=== PATIENT | female | born 1955 | race Caucasian/White ===

== ENCOUNTER 2018-09-13 09:25 | Inpatient (IN) | payer MEDICARE, OTHER ==
[~2018-09-13] VITALS: Ht 172.7 cm; Wt 79.7 kg
[2018-09-13] VITALS (14 sets, daily range): BP systolic 78–124; BP diastolic 50–64
[~2018-09-13 09:25] MED LIST: NORepinephrine bitartrate 8 MG in NS 250 ML BAG (32 mcg/ml) IV ONE; epiNEPHrine 0.1mg/ml 10ml syringe ONE; etomidate 2mg/ml inj. ONE; rocuronium 10mg/ml inj IV ONE
[2018-09-13] MEDS ORDERED: insulin regular, human 10 units/0.1 ml syringe IV ONE ×2 (09:35→12:35)
[2018-09-13] MEDS ORDERED: insulin regular, human 100 UNIT in normal saline 100ml IV soln 100 ML IV PRN ×2 (09:35)
[2018-09-13] MEDS ORDERED: normal saline 1000ML IV soln IV ONE (09:35)
[2018-09-13 10:04] LABS: BASOPHILS # (AUTO) 0.1 X10'3 (0-0.2); BASOPHILS % (AUTO) 0.3 % (0-1); EOSINOPHILS % (AUTO) 0 % (0-6); HEMATOCRIT 43.9 % (35.0-45.0); HEMOGLOBIN 13.9 g/dl (12.0-16.0); LYMPHOCYTES # (AUTO) 4.9 X10'3 (1.1-4.8); MEAN CORPUSCULAR HEMOGLOBIN 30.1 PG (27.0-31.0); MEAN CORPUSCULAR HGB CONC 31.6 % (33.0-36.5); MEAN CORPUSCULAR VOLUME 95.3 FL (78-98); MEAN PLATELET VOLUME 7.8 FL (7.4-10.4); MONOCYTES # (AUTO) 3.5 X10'3 (0-0.9); MONOCYTES % (AUTO) 8.6 % (2-12); NEUTROPHILS # (AUTO) 32.5 X10'3 (1.8-7.7); NEUTROPHILS % (AUTO) 79.1 % (42-75); PLATELET COUNT 366 X10'3 (140-440); RED BLOOD COUNT 4.61 X10'6 (4.20-5.60)
[2018-09-13 10:06] LABS: WHITE BLOOD COUNT 41.1 X10'3 (4.5-11.0)
--- NOTE | 2018-09-13 10:15 | NUR ---
maura mijares started with 2 pumps.
[2018-09-13 10:21] LABS: ABG BASE EXCESS -33.2 mmol/L (-2.0-3.0); ABG OXYGEN SATURATION 99.3 % (95-98); ABG PCO2 (T) 11.8 mmHg (32.0-45.0); ABG PH (T) 6.799 (7.350-7.450); ABG PO2 (T) 351.3 mmHg (83-108); ALLEN'S TEST Positive; FCOHb 0.6 % (0.5-1.5); FLOW 15 L/min; FMetHb 0.2 % (0.3-1.12); FO2Hb 98.5 % (94-100); PATIENT TEMPERATURE 30.3; TOTAL HEMOGLOBIN 13.9 G/dl (12.0-16.0)
[2018-09-13 10:23] LABS: TOTAL CELLS COUNTED 100
[2018-09-13 10:24] LABS: URINE HCG NEGATIVE (NEG)
[2018-09-13 10:24] LABS: ALANINE AMINOTRANSFERASE 18 U/L (12-78); ALBUMIN 2.4 G/DL (3.4-5.0); ALBUMIN/GLOBULIN RATIO 0.5 (1.1-1.5); ALKALINE PHOSPHATASE 183 IU/L (46-116); ANION GAP 32 (8-16); ASPARTATE AMINO TRANSFERASE 25 U/L (10-37); BLOOD UREA NITROGEN 76 MG/DL (7-18); BUN/CREATININE RATIO 28.3 (6.6-38.0); BURR CELLS 1+; CALCIUM 10.4 MG/DL (8.5-10.1); CHLORIDE 87 MMOL/L (99-107); CREATININE 2.69 MG/DL (0.40-0.90); MAGNESIUM 3.2 MG/DL (1.5-2.4); PLATELET ESTIMATE NORMAL; POTASSIUM 5.9 MMOL/L (3.5-5.1); SODIUM 125 MMOL/L (135-145); TOTAL PROTEIN 7.3 G/DL (6.4-8.2); TOXIC VACUOLATION 1+; eGFR 18 ML/MIN
[2018-09-13 10:25] LABS: BILIRUBIN,TOTAL 0.6 MG/DL (0.1-1.0)
[2018-09-13] MEDS ORDERED: piperacillin/tazo 3.375gm/50ml 50 ML IV ONE (10:25)
[2018-09-13] MEDS ORDERED: vancomycin/NS 1 GM ADD-VANTAGE 250 ML IV ONE (10:25)
[2018-09-13 10:26] LABS: CLARITY,URINE CLEAR (Clear); COLOR,URINE YELLOW (Yellow); GLUCOSE, URINE >=1000 mg/dl (Neg); KETONES,URINE >=80 mg/dl (Neg); LEUKOCYTE ESTERASE ,URINE NEGATIVE (Neg); NITRITES, URINE NEGATIVE (Neg); OCCULT BLOOD,URINE MODERATE (Neg); PH,URINE 5.5 (4.8-8.0); PROTEIN,URINE 100 mg/dl (Neg); UROBILINOGEN,URINE 0.2 E.U/dL (0.2-1.0)
[2018-09-13 10:28] LABS: INR 1.2 INR; PARTIAL THROMBOPLASTIN TIME 57 SECONDS (22-32); TOTAL CARBON DIOXIDE 5.6 MMOL/L (24-32)
[2018-09-13 10:29] LABS: UA COLLECTION TYPE CLN CATCH MIDSTREAM
[2018-09-13 10:34] LABS: AMORPHOUS URATES 1+; BACTERIA,URINE NONE SEEN /HPF (Neg); MUCUS STRANDS NONE SEEN /LPF (Neg); RBC,URINE NONE SEEN /HPF (0-2); SQUAMOUS EPITHELIAL CELL,UR NONE SEEN /LPF (FEW); WBC,URINE NONE SEEN /HPF (0-4)
[2018-09-13] MEDS ORDERED: calcium chloride 100 MG/1 ML inj IV ONE (10:40)
[2018-09-13 10:41] LABS: GLUCOSE 1173 MG/DL (70-104)
--- NOTE | 2018-09-13 10:50 | NUR ---
PT TO CT WITH RN AND MONITOR.
--- NOTE | 2018-09-13 11:08 | NUR ---
back from ct
--- NOTE | 2018-09-13 11:19 | NUR ---
setting up for central line and intubation per dr villeda
--- NOTE | 2018-09-13 11:24 | NUR ---
1124 dr villeda at bedside with ultrasound to place central line. rt present for intubation 1142 central line complete hr 79 spo2 100 on 15 nrb rr 18, temp 86.9 1142 sylwia 100 and etomidate 20 preparing to intubatem rt at bedside, 1150 etomidate 20 admin , 1151 sylwia 100 admin levophed ordered to astart tiffanie 1152 indubated 24 at teeth, size 8 tube, positive color change, sounds heard bilat. 1153 levophed started at 8, hr 86, spo2 100% 15L bvm 92/57 temp 87.1 bladder
--- NOTE | 2018-09-13 12:13 | NUR ---
og tube placed with approx 400 ml black output.
[2018-09-13] MEDS ORDERED: rocuronium 10mg/ml inj IV ONE (12:15)
[2018-09-13] MEDS ORDERED: normal saline 1000ml 1,000 ML IV ONE (12:15)
[2018-09-13] MEDS ORDERED: etomidate 2mg/ml inj. IV ONE (12:15)
--- NOTE | 2018-09-13 12:25 | NUR ---
dr clarke at bedside with dr villeda
[2018-09-13] MEDS: NORepinephrine 8mg/ 250ml NS 250 ML IV SCH ×3 (12:27→23:50)
[2018-09-13] MEDS ORDERED: metoclopramide 5 mg/ml inj IV PRN (12:40)
[2018-09-13] MEDS ORDERED: Neutra Phos packet PO PRN (12:40)
[2018-09-13] MEDS ORDERED: magnesium 4gm in 100ml NS 100 ML IV PRN (12:40)
[2018-09-13] MEDS: K, MAG and/or Phos replacement - Verify level? MC SCH (12:40)
[2018-09-13] MEDS ORDERED: insulin regular, human inj. 100 UNITS in normal saline 100ml IV soln 100 ML IV SCH ×2 (12:40)
[2018-09-13] MEDS ORDERED: pantoprazole 40 MG vial IV SCH (12:40)
[2018-09-13] MEDS ORDERED: magnesium Cl slow-release 64mg tablet PO PRN (12:40)
[2018-09-13] MEDS ORDERED: dextrose 50%-water 50ml dispensing syringe IV PRN ×3 (12:40→12:45)
[2018-09-13] MEDS ORDERED: sodium phosphate inj. 30 MMOL in dextrose 5%-water 250 ML IV PRN (12:40)
[2018-09-13] MEDS ORDERED: potassium Cl 20 mEq SR tablet PO PRN ×4 (12:40→12:45)
[2018-09-13] MEDS ORDERED: morphine 2 MG/ML inj. syringe IV PRN (12:40)
[2018-09-13] MEDS ORDERED: insulin regular, DKA only 100 UNIT in normal saline 100ml IV soln 99 ML IV SCH ×2 (12:44)
[2018-09-13] MEDS ORDERED: potassium CL 20mEq in D5-1/2NS 1,000 ML IV PRN (12:44)
[2018-09-13] MEDS ORDERED: insulin Lispro (HumaLOG) vial - multi-dose SQ SCH (12:45)
[2018-09-13] MEDS ORDERED: potassium Cl 40MEQ/NS 500ml 500 ML IV PRN ×2 (12:45)
[2018-09-13] MEDS ORDERED: MESSAGE TO PHARMACY PO ONE (12:45)
[2018-09-13] MEDS ORDERED: insulin regular, human vial - multi-dose IV PRN (12:45)
[2018-09-13] MEDS ORDERED: dextrose ORAL solution 15 GM/59 ML bottle PO PRN ×2 (12:45)
[2018-09-13] MEDS ORDERED: glucagon, human recombinant 1mg kit SUBCUT PRN (12:45)
[2018-09-13] MEDS ORDERED: LIDOcaine 1.5% w/epinephrine 1:200,000 5ml ampul IJ ONE (12:55)
[2018-09-13] MEDS: insulin Lispro (HumaLOG) vial - multi-dose SQ SCH ×2 (13:00→18:00)
[2018-09-13] MEDS ORDERED: LIDOcaine 1% w/epiNEPHrine 1:200,000 30ml vial IJ ONE (13:25)
--- NOTE | 2018-09-13 13:30 | NUR ---
pt at bedside with box of home medications
[2018-09-13 14:11] LABS: ALBUMIN 2.2 G/DL (3.4-5.0); BLOOD UREA NITROGEN 69 MG/DL (7-18); BUN/CREATININE RATIO 27.1 (6.6-38.0); CALCIUM 10.1 MG/DL (8.5-10.1); CHLORIDE 96 MMOL/L (99-107); CREATININE 2.55 MG/DL (0.40-0.90); PHOSPHORUS 8.1 MG/DL (2.3-4.5); POTASSIUM 3.9 MMOL/L (3.5-5.1); SODIUM 131 MMOL/L (135-145); eGFR 19 ML/MIN
--- NOTE | 2018-09-13 14:15 | NUR ---
The patient, CARON VILLAREAL, 63 y/o, F admitted by HANNA HOLT MD, was given written information regarding hospital policies, unit procedures and contact persons. See Admission information.
[2018-09-13 14:17] LABS: HEMOGLOBIN A1C 12.5 % (4.5-6.2)
[2018-09-13 14:29] LABS: ANION GAP 30 (8-16)
[2018-09-13 14:31] LABS: GLUCOSE 885 MG/DL (70-104); TOTAL CARBON DIOXIDE < 5 MMOL/L (24-32)
--- NOTE | 2018-09-13 15:00 | NUR ---
warming blanket applied for temp of 32.0
[2018-09-13] MEDS: insulin regular, DKA only 100 UNIT in normal saline 100ml IV soln 99 ML IV SCH ×2 (15:52)
[2018-09-13] MEDS: normal saline 1000ml 1,000 ML IV SCH ×3 (15:54→23:35)
[2018-09-13] MEDS: metroNIDAZOLE-Flagyl 500mg/NS 100 ML IV SCH (15:59)
--- NOTE | 2018-09-13 16:00 | NUR ---
Dr George here to see patient give orders and talk to family. Orders received.
[2018-09-13 16:06] LABS: ALANINE AMINOTRANSFERASE 19 U/L (12-78); ALBUMIN 2.1 G/DL (3.4-5.0); ALBUMIN/GLOBULIN RATIO 0.4 (1.1-1.5); ALKALINE PHOSPHATASE 198 IU/L (46-116); ASPARTATE AMINO TRANSFERASE 35 U/L (10-37); BILIRUBIN,TOTAL 0.6 MG/DL (0.1-1.0); BLOOD UREA NITROGEN 70 MG/DL (7-18); BUN/CREATININE RATIO 27.3 (6.6-38.0); CALCIUM 9.5 MG/DL (8.5-10.1); CHLORIDE 98 MMOL/L (99-107); CREATININE 2.56 MG/DL (0.40-0.90); MAGNESIUM 2.3 MG/DL (1.5-2.4); PHOSPHORUS 7.5 MG/DL (2.3-4.5); POTASSIUM 3.8 MMOL/L (3.5-5.1); SODIUM 132 MMOL/L (135-145); TOTAL PROTEIN 6.8 G/DL (6.4-8.2); eGFR 19 ML/MIN
--- NOTE | 2018-09-13 16:30 | NUR ---
2L of NS given via warmed rapid infuser per Md orders
[2018-09-13 16:31] LABS: ANION GAP 29 (8-16)
[2018-09-13 16:32] LABS: GLUCOSE 828 MG/DL (70-104)
[2018-09-13 16:33] LABS: TOTAL CARBON DIOXIDE < 5 MMOL/L (24-32)
[2018-09-13] MEDS ORDERED: pantoprazole 40 MG vial IV ONE (17:05)
[2018-09-13] MEDS: hydrocortisone sod succ/PF 100mg/2ml inj. IV SCH ×2 (17:28→20:09)
[2018-09-13] MEDS ORDERED: levoTHYROXINE sod inj. 100mcg/5 ml vial IV ONE (17:40)
[2018-09-13 17:45] LABS: OXYGEN SATURATION (MIXED VEN) 89.4 % (60-80); PO2 MIXED VENOUS (TEMP COR) 46.7 mmHg (35-46)
[2018-09-13] MEDS: sodium chloride 0.45% 1,000 ML IV SCH ×2 (17:48→21:33)
[2018-09-13] MEDS: ampicillin inj 2 GM in normal saline 100ml IV soln 100 ML IV SCH ×2 (17:48→20:09)
[2018-09-13 17:51] LABS: BASOPHILS % (AUTO) 0.1 % (0-1); EOSINOPHILS % (AUTO) 0 % (0-6); HEMATOCRIT 39.9 % (35.0-45.0); LYMPHOCYTES # (AUTO) 4.7 X10'3 (1.1-4.8); LYMPHOCYTES % (AUTO) 13.5 % (21-51); MEAN CORPUSCULAR HEMOGLOBIN 29.9 PG (27.0-31.0); MEAN CORPUSCULAR HGB CONC 32.6 % (33.0-36.5); MEAN CORPUSCULAR VOLUME 91.8 FL (78-98); MEAN PLATELET VOLUME 7.1 FL (7.4-10.4); MONOCYTES # (AUTO) 0.8 X10'3 (0-0.9); MONOCYTES % (AUTO) 2.3 % (2-12); NEUTROPHILS # (AUTO) 29.6 X10'3 (1.8-7.7); NEUTROPHILS % (AUTO) 84.1 % (42-75); PLATELET COUNT 348 X10'3 (140-440); RED BLOOD COUNT 4.34 X10'6 (4.20-5.60); RED CELL DISTRIBUTION WIDTH 13.7 % (11.5-14.5)
[2018-09-13 17:53] LABS: WHITE BLOOD COUNT 35.2 X10'3 (4.5-11.0)
[2018-09-13 17:56] LABS: ABG BASE EXCESS -30.9 mmol/L (-2.0-3.0); ABG HCO3 4.2 mmol/L (22.0-26.0); ABG OXYGEN SATURATION 96.6 % (95-98); ABG PCO2 (T) 25.2 mmHg (32.0-45.0); ABG PH (T) 6.801 (7.350-7.450); ABG PO2 (T) 83.2 mmHg (83-108); FCOHb 0.6 % (0.5-1.5); FMetHb 0.3 % (0.3-1.12); FO2Hb 95.7 % (94-100); MINUTE VOLUME 9 L/min; PATIENT TEMPERATURE 32.8; PEEP 5 cm H2O; RESPIRATORY RATE 20 b/min; RESPIRATORY RATE (OBSERVED) 20 b/min; TIDAL VOLUME 400 mL; TOTAL HEMOGLOBIN 14.1 G/dl (12.0-16.0)
[2018-09-13 18:01] LABS: INR 1.3 INR; PARTIAL THROMBOPLASTIN TIME 44 SECONDS (22-32); PROTHROMBIN TIME 12.7 SECONDS (9.0-12.0)
[2018-09-13] MEDS ORDERED: sodium bicarbonate (8.4%) 1 mEq/ml syringe ONE ×2 (18:01→18:03)
[2018-09-13] MEDS ORDERED: sodium bicarbonate (8.4%) 1 mEq/ml syringe IV ONE ×2 (18:05→21:15)
[2018-09-13 18:10] LABS: PHOSPHORUS 6.3 MG/DL (2.3-4.5); POTASSIUM 3.5 MMOL/L (3.5-5.1)
--- NOTE | 2018-09-13 18:15 | NUR ---
Patient in room ICU 2041. I have received report from Ag Mtz RN and had the opportunity to ask questions and assume patient care.
--- NOTE | 2018-09-13 18:15 | NUR ---
Problems reprioritized. Patient report given, questions answered & plan of care reviewed with oncomign shift.
--- NOTE | 2018-09-13 18:30 | NUR ---
Patient at max dose of Levo. Spoke with Ale Santiago NP. New orders received. Will continue to monitor.
[2018-09-13] MEDS: vasopressin inj. 60 UNIT in normal saline 100ml IV soln 97 ML IV SCH (18:54)
--- NOTE | 2018-09-13 19:30 | NUR ---
Patients daughter and ex at bedside. Daughter states that she lives with boyfriend, not . Daughter also states that patient has a allergy to Sulfa drugs.
[2018-09-13 20:49] LABS: BASOPHILS # (AUTO) 0.1 X10'3 (0-0.2); BASOPHILS % (AUTO) 0.4 % (0-1); EOSINOPHILS % (AUTO) 0 % (0-6); HEMATOCRIT 40.4 % (35.0-45.0); HEMOGLOBIN 13.4 g/dl (12.0-16.0); LYMPHOCYTES # (AUTO) 2.9 X10'3 (1.1-4.8); LYMPHOCYTES % (AUTO) 10.4 % (21-51); MEAN CORPUSCULAR HEMOGLOBIN 30.1 PG (27.0-31.0); MEAN CORPUSCULAR HGB CONC 33.2 % (33.0-36.5); MEAN CORPUSCULAR VOLUME 90.7 FL (78-98); MEAN PLATELET VOLUME 7.1 FL (7.4-10.4); MONOCYTES # (AUTO) 1.1 X10'3 (0-0.9); MONOCYTES % (AUTO) 3.9 % (2-12); NEUTROPHILS # (AUTO) 23.4 X10'3 (1.8-7.7); NEUTROPHILS % (AUTO) 85.3 % (42-75); PLATELET COUNT 307 X10'3 (140-440); RED BLOOD COUNT 4.45 X10'6 (4.20-5.60); RED CELL DISTRIBUTION WIDTH 13.5 % (11.5-14.5)
[2018-09-13 20:52] LABS: WHITE BLOOD COUNT 27.4 X10'3 (4.5-11.0)
[2018-09-13 20:55] LABS: MAGNESIUM 1.8 MG/DL (1.5-2.4); PHOSPHORUS 4.2 MG/DL (2.3-4.5)
--- NOTE | 2018-09-13 21:00 | NUR ---
Critical ABG received. Notified Kevin Edward NP. New orders received.
[2018-09-13 21:01] LABS: ABG HCO3 8.5 mmol/L (22.0-26.0); ABG OXYGEN SATURATION 96.6 % (95-98); ABG PCO2 (T) 27.6 mmHg (32.0-45.0); ABG PH (T) 7.084 (7.350-7.450); ABG PO2 (T) 79.7 mmHg (83-108); ALLEN'S TEST Positive; FCOHb 0.3 % (0.5-1.5); FMetHb 0.2 % (0.3-1.12); FO2Hb 96.1 % (94-100); PATIENT TEMPERATURE 33.9; PEEP 5 cm H2O; RESPIRATORY RATE 20 b/min; RESPIRATORY RATE (OBSERVED) 20 b/min; TIDAL VOLUME 400 mL; TOTAL HEMOGLOBIN 14.5 G/dl (12.0-16.0)
[2018-09-13] MEDS: FENTANYL-0.9 % NACL/PF 100 ML IV PRN (21:34)
[2018-09-13] MEDS: midazolam 100mg in NS 100ml 100 ML IV PRN (21:34)
[2018-09-13] MEDS: sodium bicarbonate (8.4%) inj. 150 MEQ in sodium chloride 0.45% 1,000 ML IV SCH (22:12)
[2018-09-14] VITALS (24 sets, daily range): BP systolic 96–127; BP diastolic 50–66
[2018-09-14] MEDS: metroNIDAZOLE-Flagyl 500mg/NS 100 ML IV SCH ×3 (00:27→16:24)
[2018-09-14] MEDS: sodium chloride 0.45% 1,000 ML IV SCH ×3 (01:20→09:20)
[2018-09-14] MEDS: hydrocortisone sod succ/PF 100mg/2ml inj. IV SCH ×4 (02:32→20:03)
[2018-09-14] MEDS: ampicillin inj 2 GM in normal saline 100ml IV soln 100 ML IV SCH ×4 (02:33→20:03)
[2018-09-14 02:35] LABS: ABG BASE EXCESS -12.1 mmol/L (-2.0-3.0); ABG HCO3 12.5 mmol/L (22.0-26.0); ABG OXYGEN SATURATION 96.7 % (95-98); ABG PCO2 (T) 24.1 mmHg (32.0-45.0); ABG PH (T) 7.325 (7.350-7.450); ABG PO2 (T) 80.1 mmHg (83-108); ALLEN'S TEST Positive; FCOHb 0.1 % (0.5-1.5); FMetHb 0.3 % (0.3-1.12); FO2Hb 96.3 % (94-100); PATIENT TEMPERATURE 35.4; PEEP 5 cm H2O; RESPIRATORY RATE 20 b/min; RESPIRATORY RATE (OBSERVED) 20 b/min; TIDAL VOLUME 400 mL; TOTAL HEMOGLOBIN 13.8 G/dl (12.0-16.0)
[2018-09-14] MEDS: normal saline 1000ml 1,000 ML IV SCH (03:35)
[2018-09-14 03:54] LABS: INR 1.2 INR; PARTIAL THROMBOPLASTIN TIME 29 SECONDS (22-32); PROTHROMBIN TIME 11.6 SECONDS (9.0-12.0)
[2018-09-14 04:02] LABS: ALANINE AMINOTRANSFERASE 15 U/L (12-78); ALBUMIN 1.8 G/DL (3.4-5.0); ALBUMIN/GLOBULIN RATIO 0.5 (1.1-1.5); ALKALINE PHOSPHATASE 138 IU/L (46-116); ANION GAP 24 (8-16); ASPARTATE AMINO TRANSFERASE 32 U/L (10-37); BILIRUBIN,TOTAL 0.5 MG/DL (0.1-1.0); BLOOD UREA NITROGEN 69 MG/DL (7-18); BUN/CREATININE RATIO 29.2 (6.6-38.0); CHLORIDE 103 MMOL/L (99-107); CREATININE 2.36 MG/DL (0.40-0.90); GLUCOSE 376 MG/DL (70-104); MAGNESIUM 1.4 MG/DL (1.5-2.4); PHOSPHORUS 1.8 MG/DL (2.3-4.5); SODIUM 140 MMOL/L (135-145); TOTAL PROTEIN 5.5 G/DL (6.4-8.2); eGFR 21 ML/MIN
[2018-09-14 04:16] LABS: POTASSIUM 2.5 MMOL/L (3.5-5.1); TOTAL CARBON DIOXIDE 13.1 MMOL/L (24-32)
[2018-09-14 04:30] LABS: BASOPHILS % (AUTO) 0.2 % (0-1); EOSINOPHILS # (AUTO) 0.1 X10'3 (0-0.9); EOSINOPHILS % (AUTO) 0.3 % (0-6); HEMATOCRIT 36.9 % (35.0-45.0); HEMOGLOBIN 12.3 g/dl (12.0-16.0); LYMPHOCYTES # (AUTO) 0.8 X10'3 (1.1-4.8); LYMPHOCYTES % (AUTO) 3.7 % (21-51); MEAN CORPUSCULAR HEMOGLOBIN 30.3 PG (27.0-31.0); MEAN CORPUSCULAR HGB CONC 33.3 % (33.0-36.5); MONOCYTES # (AUTO) 1.7 X10'3 (0-0.9); MONOCYTES % (AUTO) 8.5 % (2-12); NEUTROPHILS % (AUTO) 87.3 % (42-75); PLATELET COUNT 179 X10'3 (140-440); RED BLOOD COUNT 4.05 X10'6 (4.20-5.60); RED CELL DISTRIBUTION WIDTH 13.4 % (11.5-14.5); WHITE BLOOD COUNT 20.6 X10'3 (4.5-11.0)
[2018-09-14] MEDS ORDERED: potassium Cl 40MEQ/250ML bag 250 ML IV PRN (04:30)
[2018-09-14] MEDS ORDERED: magnesium 4gm in 100ml NS 100 ML IV PRN (04:30)
[2018-09-14] MEDS ORDERED: magnesium 2GM in 50ml NS 50 ML IV PRN (04:30)
[2018-09-14] MEDS: potassium Cl 40MEQ/250ML bag 250 ML IV PRN ×2 (04:45→07:39)
[2018-09-14] MEDS: insulin regular, DKA only 100 UNIT in normal saline 100ml IV soln 99 ML IV SCH ×4 (06:27→17:13)
--- NOTE | 2018-09-14 06:29 | NUR ---
Problems reprioritized. Patient report given, questions answered & plan of care reviewed with MARIAJOSE COSTA.
[2018-09-14 07:13] LABS: BURR CELLS 2+; PLATELET ESTIMATE NORMAL; POLYCHROMASIA FEW; TOTAL CELLS COUNTED 100; TOXIC GRANULATION 1+; TOXIC VACUOLATION 1+
[2018-09-14] MEDS: sodium bicarbonate (8.4%) inj. 150 MEQ in sodium chloride 0.45% 1,000 ML IV SCH ×2 (07:39→10:02)
[2018-09-14] MEDS: NORepinephrine 8mg/ 250ml NS 250 ML IV SCH ×2 (07:39→17:57)
[2018-09-14] MEDS: K and/or MAG REPLACEMENT MC SCH (08:00)
[2018-09-14] MEDS: K, MAG and/or Phos replacement - Verify level? MC SCH (08:00)
[2018-09-14] MEDS: insulin Lispro (HumaLOG) vial - multi-dose SQ SCH ×3 (09:00→18:00)
[2018-09-14] MEDS: pantoprazole 40 MG vial IV SCH (10:02)
[2018-09-14] MEDS: sodium phosphate inj. 15 MMOL in dextrose 5%-water 150 ML IV PRN (10:11)
[2018-09-14] MEDS ORDERED: potassium phosphate inj 30 MMOL in normal saline 500ml IV soln 490 ML IV ONE (10:40)
[2018-09-14] MEDS ORDERED: dextrose 5%-1/2 normal saline 1,000 ML IV SCH (10:40)
[2018-09-14] MEDS ORDERED: normal saline 1000ml 250 ML IV PRN (11:07)
[2018-09-14] MEDS ORDERED: normal saline 1000ml 100 ML IV PRN (11:07)
[2018-09-14] MEDS ORDERED: epoetin 20,000 units/ml inj IV ONE (11:10)
[2018-09-14] MEDS ORDERED: albumin (Human) 5% 250ml 250 ML IV PRN (11:10)
[2018-09-14] MEDS ORDERED: POTASSIUM PHOSPHATE IV ONE (11:24)
[2018-09-14] MEDS ORDERED: NORMAL SALINE IV ONE (11:24)
[2018-09-14 12:08] LABS: BASOPHILS % (AUTO) 0.2 % (0-1); EOSINOPHILS % (AUTO) 0 % (0-6); HEMATOCRIT 34.5 % (35.0-45.0); HEMOGLOBIN 11.8 g/dl (12.0-16.0); LYMPHOCYTES # (AUTO) 0.9 X10'3 (1.1-4.8); LYMPHOCYTES % (AUTO) 4.5 % (21-51); MEAN CORPUSCULAR HEMOGLOBIN 30.3 PG (27.0-31.0); MEAN CORPUSCULAR HGB CONC 34.1 % (33.0-36.5); MEAN CORPUSCULAR VOLUME 88.8 FL (78-98); MEAN PLATELET VOLUME 6.6 FL (7.4-10.4); MONOCYTES # (AUTO) 0.4 X10'3 (0-0.9); MONOCYTES % (AUTO) 1.8 % (2-12); NEUTROPHILS # (AUTO) 19.6 X10'3 (1.8-7.7); NEUTROPHILS % (AUTO) 93.5 % (42-75); PLATELET COUNT 159 X10'3 (140-440); RED BLOOD COUNT 3.89 X10'6 (4.20-5.60)
[2018-09-14] MEDS: MAGNESIUM IV SCH ×3 (12:12→20:03)
[2018-09-14] MEDS: POTASSIUM CL IV SCH ×3 (12:12→20:03)
[2018-09-14] MEDS: [UNRECOGNIZED DRUG - OTHER] IV SCH ×3 (12:12→20:03)
[2018-09-14 12:20] LABS: MAGNESIUM 1.3 MG/DL (1.5-2.4); PHOSPHORUS 1.4 MG/DL (2.3-4.5)
[2018-09-14 13:11] LABS: POTASSIUM 3.4 MMOL/L (3.5-5.1)
--- NOTE | 2018-09-14 13:11 | NUR ---
DM/TF Consult: Pt intubated admit w/ weakness, DKA, A1C 12.5 after she and decided to stop taking insulin and try to control her T2DM w/ only diet/exercise. Admit GLU 1137; A1C 12.5. Started HD today. Starvation ketosis w/ feeds to start upon MD discussion w/ RD today; trickle 30ml/hr to assess GI tolerance per MD. Abdominal CT and x-ray show normal GI at this time. OG in place; will monitor for feeding tolerance and refeeding signs given starvation ketosis per MD. Electrolyte replacement in progress. Recs below using IBW given pt current emaciated wt. No wt hx or significant weakness/edema present; will monitor for additional information and malnutrition criteria this admit. Rec: 1. Trickle OGTF using Vital AF at 30ml/hr per sales planning analyst; once OK per MD advance to 65ml/hr goal 2. additional water flush per sales planning analyst; on HD 3. prealbumin Q /, daily wts 4. monitor for refeeding signs given starvation ketosis 5. upon extubation; DM ed A1C 12.5 Addendum: 09/14/18 at [address] Amended: Links added.
[2018-09-14] MEDS ORDERED: insulin regular, human vial - multi-dose SQ SCH (13:55)
[2018-09-14 17:31] LABS: BASOPHILS % (AUTO) 0.1 % (0-1); EOSINOPHILS % (AUTO) 0 % (0-6); HEMATOCRIT 31.9 % (35.0-45.0); HEMOGLOBIN 10.8 g/dl (12.0-16.0); LYMPHOCYTES # (AUTO) 0.8 X10'3 (1.1-4.8); LYMPHOCYTES % (AUTO) 4.4 % (21-51); MEAN CORPUSCULAR HEMOGLOBIN 30.3 PG (27.0-31.0); MEAN CORPUSCULAR VOLUME 89.1 FL (78-98); MEAN PLATELET VOLUME 6.7 FL (7.4-10.4); MONOCYTES # (AUTO) 0.6 X10'3 (0-0.9); MONOCYTES % (AUTO) 3.1 % (2-12); NEUTROPHILS # (AUTO) 17.6 X10'3 (1.8-7.7); NEUTROPHILS % (AUTO) 92.4 % (42-75); PLATELET COUNT 128 X10'3 (140-440); RED BLOOD COUNT 3.58 X10'6 (4.20-5.60); RED CELL DISTRIBUTION WIDTH 13.7 % (11.5-14.5); WHITE BLOOD COUNT 19.1 X10'3 (4.5-11.0)
[2018-09-14 17:43] LABS: MAGNESIUM 2.1 MG/DL (1.5-2.4); PHOSPHORUS 1.7 MG/DL (2.3-4.5)
--- NOTE | 2018-09-14 18:15 | NUR ---
Patient in room ICU 2041. I have received report from Shayla COSTA and had the opportunity to ask questions and assume patient care.
[2018-09-14 21:22] LABS: BASOPHILS % (AUTO) 0.1 % (0-1); EOSINOPHILS % (AUTO) 0 % (0-6); HEMATOCRIT 32.3 % (35.0-45.0); HEMOGLOBIN 10.5 g/dl (12.0-16.0); LYMPHOCYTES % (AUTO) 5.2 % (21-51); MEAN CORPUSCULAR HEMOGLOBIN 29.5 PG (27.0-31.0); MEAN CORPUSCULAR HGB CONC 32.4 % (33.0-36.5); MEAN CORPUSCULAR VOLUME 90.8 FL (78-98); MEAN PLATELET VOLUME 6.9 FL (7.4-10.4); MONOCYTES # (AUTO) 0.9 X10'3 (0-0.9); MONOCYTES % (AUTO) 4.8 % (2-12); NEUTROPHILS # (AUTO) 16.7 X10'3 (1.8-7.7); NEUTROPHILS % (AUTO) 89.9 % (42-75); PLATELET COUNT 121 X10'3 (140-440); RED BLOOD COUNT 3.56 X10'6 (4.20-5.60); WHITE BLOOD COUNT 18.6 X10'3 (4.5-11.0)
[2018-09-14 21:47] LABS: MAGNESIUM 2.2 MG/DL (1.5-2.4); PHOSPHORUS 1.7 MG/DL (2.3-4.5)
[2018-09-15] VITALS (24 sets, daily range): BP systolic 94–113; BP diastolic 49–66
[2018-09-15] MEDS: MAGNESIUM IV SCH ×2 (00:21→03:20)
[2018-09-15] MEDS: POTASSIUM CL IV SCH ×2 (00:21→03:20)
[2018-09-15] MEDS: [UNRECOGNIZED DRUG - OTHER] IV SCH ×2 (00:21→03:20)
[2018-09-15] MEDS: metroNIDAZOLE-Flagyl 500mg/NS 100 ML IV SCH ×3 (00:21→16:06)
[2018-09-15 01:21] LABS: BASOPHILS # (AUTO) 0.1 X10'3 (0-0.2); BASOPHILS % (AUTO) 0.7 % (0-1); EOSINOPHILS % (AUTO) 0 % (0-6); HEMATOCRIT 30.5 % (35.0-45.0); HEMOGLOBIN 10.8 g/dl (12.0-16.0); LYMPHOCYTES # (AUTO) 0.9 X10'3 (1.1-4.8); LYMPHOCYTES % (AUTO) 4.7 % (21-51); MEAN CORPUSCULAR HEMOGLOBIN 31.7 PG (27.0-31.0); MEAN CORPUSCULAR HGB CONC 35.4 % (33.0-36.5); MEAN CORPUSCULAR VOLUME 89.6 FL (78-98); MEAN PLATELET VOLUME 7.4 FL (7.4-10.4); MONOCYTES # (AUTO) 0.9 X10'3 (0-0.9); MONOCYTES % (AUTO) 4.5 % (2-12); NEUTROPHILS % (AUTO) 90.1 % (42-75); PLATELET COUNT 114 X10'3 (140-440); RED BLOOD COUNT 3.41 X10'6 (4.20-5.60); RED CELL DISTRIBUTION WIDTH 13.2 % (11.5-14.5); WHITE BLOOD COUNT 19.9 X10'3 (4.5-11.0)
[2018-09-15 01:38] LABS: MAGNESIUM 2.3 MG/DL (1.5-2.4); PHOSPHORUS 1.6 MG/DL (2.3-4.5)
[2018-09-15] MEDS: ondansetron/PF 4mg/2ml inj IV PRN (02:15)
[2018-09-15] MEDS: ampicillin inj 2 GM in normal saline 100ml IV soln 100 ML IV SCH ×4 (02:15→19:18)
[2018-09-15] MEDS: hydrocortisone sod succ/PF 100mg/2ml inj. IV SCH ×4 (02:15→19:18)
[2018-09-15] MEDS: FENTANYL-0.9 % NACL/PF 100 ML IV PRN (02:22)
[2018-09-15 03:21] LABS: ABG BASE EXCESS -7.8 mmol/L (-2.0-3.0); ABG HCO3 15.6 mmol/L (22.0-26.0); ABG OXYGEN SATURATION 93.3 % (95-98); ABG PCO2 (T) 25.5 mmHg (32.0-45.0); ABG PH (T) 7.403 (7.350-7.450); ABG PO2 (T) 64.6 mmHg (83-108); FCOHb 0.3 % (0.5-1.5); FMetHb 0.3 % (0.3-1.12); FO2Hb 92.7 % (94-100); MINUTE VOLUME 9 L/min; PATIENT TEMPERATURE 36.8; PEEP 5 cm H2O; RESPIRATORY RATE 20 b/min; RESPIRATORY RATE (OBSERVED) 23 b/min; TIDAL VOLUME 400 mL; TOTAL HEMOGLOBIN 11.1 G/dl (12.0-16.0)
[2018-09-15 03:50] LABS: ALANINE AMINOTRANSFERASE 18 U/L (12-78); ALBUMIN 1.5 G/DL (3.4-5.0); ALBUMIN/GLOBULIN RATIO 0.4 (1.1-1.5); ALKALINE PHOSPHATASE 110 IU/L (46-116); ANION GAP 13 (8-16); ASPARTATE AMINO TRANSFERASE 36 U/L (10-37); BILIRUBIN,TOTAL 0.3 MG/DL (0.1-1.0); BLOOD UREA NITROGEN 38 MG/DL (7-18); BUN/CREATININE RATIO 18.6 (6.6-38.0); CALCIUM 7.2 MG/DL (8.5-10.1); CHLORIDE 106 MMOL/L (99-107); CREATININE 2.04 MG/DL (0.40-0.90); GLUCOSE 239 MG/DL (70-104); MAGNESIUM 2.4 MG/DL (1.5-2.4); PHOSPHORUS 1.6 MG/DL (2.3-4.5); POTASSIUM 4.9 MMOL/L (3.5-5.1); PREALBUMIN 6.5 MG/DL (19-36); SODIUM 136 MMOL/L (135-145); TOTAL CARBON DIOXIDE 17.1 MMOL/L (24-32); TOTAL PROTEIN 5.1 G/DL (6.4-8.2); eGFR 25 ML/MIN
[2018-09-15 03:59] LABS: BASOPHILS % (AUTO) 0 % (0-1); EOSINOPHILS % (AUTO) 0 % (0-6); HEMOGLOBIN 10.4 g/dl (12.0-16.0); LYMPHOCYTES # (AUTO) 1.1 X10'3 (1.1-4.8); LYMPHOCYTES % (AUTO) 4.9 % (21-51); MEAN CORPUSCULAR HEMOGLOBIN 30.2 PG (27.0-31.0); MEAN CORPUSCULAR HGB CONC 33.6 % (33.0-36.5); MEAN CORPUSCULAR VOLUME 89.9 FL (78-98); MEAN PLATELET VOLUME 7.5 FL (7.4-10.4); MONOCYTES % (AUTO) 4.5 % (2-12); NEUTROPHILS # (AUTO) 19.9 X10'3 (1.8-7.7); NEUTROPHILS % (AUTO) 90.6 % (42-75); PLATELET COUNT 138 X10'3 (140-440); RED BLOOD COUNT 3.45 X10'6 (4.20-5.60); RED CELL DISTRIBUTION WIDTH 14.1 % (11.5-14.5)
[2018-09-15 04:06] LABS: INR 1.1 INR; PARTIAL THROMBOPLASTIN TIME 29 SECONDS (22-32); PROTHROMBIN TIME 10.7 SECONDS (9.0-12.0)
[2018-09-15] MEDS: sodium phosphate inj. 15 MMOL in dextrose 5%-water 150 ML IV PRN ×2 (05:10→16:06)
[2018-09-15] MEDS: NORepinephrine 8mg/ 250ml NS 250 ML IV SCH (06:14)
[2018-09-15 06:35] LABS: PLATELET ESTIMATE DECREASED; TOTAL CELLS COUNTED 100
[2018-09-15 06:36] LABS: TOXIC GRANULATION 1+
[2018-09-15] MEDS: insulin regular, DKA only 100 UNIT in normal saline 100ml IV soln 99 ML IV SCH ×4 (07:32→16:10)
[2018-09-15] MEDS: K and/or MAG REPLACEMENT MC SCH (08:00)
[2018-09-15] MEDS: K, MAG and/or Phos replacement - Verify level? MC SCH (08:00)
[2018-09-15] MEDS: pantoprazole 40 MG vial IV SCH (08:29)
[2018-09-15] MEDS: insulin Lispro (HumaLOG) vial - multi-dose SQ SCH ×2 (09:00→13:00)
[2018-09-15 11:41] LABS: BASOPHILS % (AUTO) 0 % (0-1); EOSINOPHILS % (AUTO) 0 % (0-6); HEMOGLOBIN 10.4 g/dl (12.0-16.0); LYMPHOCYTES # (AUTO) 1.2 X10'3 (1.1-4.8); LYMPHOCYTES % (AUTO) 5.8 % (21-51); MEAN CORPUSCULAR HEMOGLOBIN 30.3 PG (27.0-31.0); MEAN CORPUSCULAR HGB CONC 33.6 % (33.0-36.5); MEAN CORPUSCULAR VOLUME 90.2 FL (78-98); MEAN PLATELET VOLUME 6.9 FL (7.4-10.4); MONOCYTES # (AUTO) 0.8 X10'3 (0-0.9); MONOCYTES % (AUTO) 4.1 % (2-12); NEUTROPHILS % (AUTO) 90.1 % (42-75); PLATELET COUNT 116 X10'3 (140-440); RED BLOOD COUNT 3.44 X10'6 (4.20-5.60); RED CELL DISTRIBUTION WIDTH 14.8 % (11.5-14.5)
[2018-09-15 11:49] LABS: MAGNESIUM 2.5 MG/DL (1.5-2.4); PHOSPHORUS 2.2 MG/DL (2.3-4.5)
[2018-09-15] MEDS: dextrose 5%-1/2 normal saline 1,000 ML IV SCH ×2 (11:50→18:40)
[2018-09-15 12:31] LABS: BANDS% (MANUAL) 8 % (0-10); LYMPHOCYTES % (MANUAL) 4 % (21-51); MONOCYTES % (MANUAL) 6 % (2-12); NEUTROPHILS % (MANUAL) 82 % (42-75); PLATELET ESTIMATE DECREASED; TOTAL CELLS COUNTED 100
[2018-09-15 12:32] LABS: LARGE PLATELETS FEW; POLYCHROMASIA FEW
[2018-09-15 12:33] LABS: BURR CELLS 2+; TOXIC GRANULATION 2+; TOXIC VACUOLATION 1+
[2018-09-15] MEDS ORDERED: insulin regular, human vial - multi-dose SQ PRN (14:21)
[2018-09-15] MEDS ORDERED: NO HOME MEDS (16:04)
[2018-09-15 17:09] LABS: BASOPHILS % (AUTO) 0.1 % (0-1); EOSINOPHILS % (AUTO) 0 % (0-6); HEMATOCRIT 31.7 % (35.0-45.0); HEMOGLOBIN 10.6 g/dl (12.0-16.0); LYMPHOCYTES # (AUTO) 1.2 X10'3 (1.1-4.8); LYMPHOCYTES % (AUTO) 5.1 % (21-51); MEAN CORPUSCULAR HEMOGLOBIN 30.2 PG (27.0-31.0); MEAN CORPUSCULAR HGB CONC 33.3 % (33.0-36.5); MEAN CORPUSCULAR VOLUME 90.5 FL (78-98); MEAN PLATELET VOLUME 7.1 FL (7.4-10.4); MONOCYTES # (AUTO) 0.1 X10'3 (0-0.9); MONOCYTES % (AUTO) 0.5 % (2-12); NEUTROPHILS # (AUTO) 21.3 X10'3 (1.8-7.7); NEUTROPHILS % (AUTO) 94.3 % (42-75); PLATELET COUNT 121 X10'3 (140-440); RED BLOOD COUNT 3.51 X10'6 (4.20-5.60); RED CELL DISTRIBUTION WIDTH 14.8 % (11.5-14.5); WHITE BLOOD COUNT 22.6 X10'3 (4.5-11.0)
[2018-09-15 17:23] LABS: MAGNESIUM 2.4 MG/DL (1.5-2.4); PHOSPHORUS 2.4 MG/DL (2.3-4.5)
[2018-09-15] MEDS: vasopressin inj. 60 UNIT in normal saline 100ml IV soln 97 ML IV SCH (18:25)
--- NOTE | 2018-09-15 18:30 | NUR ---
Patient in room ICU 2041. I have received report from Shayla COSTA and had the opportunity to ask questions and assume patient care.
[2018-09-15] MEDS: insulin glargine (Lantus) pen - multi-dose SQ SCH (19:23)
[2018-09-15 21:33] LABS: BASOPHILS % (AUTO) 0 % (0-1); EOSINOPHILS % (AUTO) 0 % (0-6); HEMATOCRIT 30.1 % (35.0-45.0); HEMOGLOBIN 10.1 g/dl (12.0-16.0); LYMPHOCYTES # (AUTO) 0.9 X10'3 (1.1-4.8); LYMPHOCYTES % (AUTO) 4.4 % (21-51); MEAN CORPUSCULAR HEMOGLOBIN 30.2 PG (27.0-31.0); MEAN CORPUSCULAR HGB CONC 33.6 % (33.0-36.5); MEAN CORPUSCULAR VOLUME 90.1 FL (78-98); MEAN PLATELET VOLUME 7.3 FL (7.4-10.4); MONOCYTES # (AUTO) 0.7 X10'3 (0-0.9); MONOCYTES % (AUTO) 3.5 % (2-12); NEUTROPHILS # (AUTO) 19.4 X10'3 (1.8-7.7); NEUTROPHILS % (AUTO) 92.1 % (42-75); PLATELET COUNT 106 X10'3 (140-440); RED BLOOD COUNT 3.34 X10'6 (4.20-5.60)
[2018-09-15 21:50] LABS: MAGNESIUM 2.4 MG/DL (1.5-2.4)
--- NOTE | 2018-09-15 22:00 | NUR ---
While giving patient bath and changing linens and providing hema-care, patient became increasingly agitated moving all extremities, face turning red, BP increased to systolic of 180's. Patient was grimacing and bucking the vent. Bolus of pain medication and sedation given per MD order. Will continue to monitor patient.
[2018-09-16] VITALS (24 sets, daily range): BP systolic 86–156; BP diastolic 45–88
[2018-09-16] MEDS: metroNIDAZOLE-Flagyl 500mg/NS 100 ML IV SCH ×3 (00:12→17:01)
[2018-09-16] MEDS: dextrose 5%-1/2 normal saline 1,000 ML IV SCH ×2 (00:13→08:10)
[2018-09-16] MEDS: insulin regular, DKA only 100 UNIT in normal saline 100ml IV soln 99 ML IV SCH ×4 (00:19→23:30)
[2018-09-16] MEDS: NORepinephrine 8mg/ 250ml NS 250 ML IV SCH (00:20)
--- NOTE | 2018-09-16 01:14 | NUR ---
While repositioning patient, patient became agitated, face turns bright red, BP systolic 199. Patient bolused with fentanyl and Versed per MD order. BP returned to 120's systolic. Will continue to monitor patient.
[2018-09-16 01:35] LABS: ALANINE AMINOTRANSFERASE 16 U/L (12-78); ALBUMIN 1.5 G/DL (3.4-5.0); ALBUMIN/GLOBULIN RATIO 0.4 (1.1-1.5); ALKALINE PHOSPHATASE 121 IU/L (46-116); ANION GAP 15 (8-16); ASPARTATE AMINO TRANSFERASE 29 U/L (10-37); BILIRUBIN,TOTAL 0.3 MG/DL (0.1-1.0); BLOOD UREA NITROGEN 41 MG/DL (7-18); BUN/CREATININE RATIO 15.5 (6.6-38.0); CHLORIDE 103 MMOL/L (99-107); CREATININE 2.64 MG/DL (0.40-0.90); GLUCOSE 202 MG/DL (70-104); MAGNESIUM 2.3 MG/DL (1.5-2.4); PHOSPHORUS 2.8 MG/DL (2.3-4.5); POTASSIUM 4.6 MMOL/L (3.5-5.1); SODIUM 134 MMOL/L (135-145); TOTAL CARBON DIOXIDE 16.4 MMOL/L (24-32); TOTAL PROTEIN 5.3 G/DL (6.4-8.2); eGFR 18 ML/MIN
[2018-09-16 01:53] LABS: BASOPHILS % (AUTO) 0.1 % (0-1); EOSINOPHILS % (AUTO) 0 % (0-6); HEMATOCRIT 29.4 % (35.0-45.0); HEMOGLOBIN 9.9 g/dl (12.0-16.0); LYMPHOCYTES # (AUTO) 0.9 X10'3 (1.1-4.8); LYMPHOCYTES % (AUTO) 4.8 % (21-51); MEAN CORPUSCULAR HEMOGLOBIN 30.4 PG (27.0-31.0); MEAN CORPUSCULAR HGB CONC 33.6 % (33.0-36.5); MEAN CORPUSCULAR VOLUME 90.5 FL (78-98); MEAN PLATELET VOLUME 7.2 FL (7.4-10.4); MONOCYTES # (AUTO) 0.5 X10'3 (0-0.9); MONOCYTES % (AUTO) 2.7 % (2-12); NEUTROPHILS % (AUTO) 92.4 % (42-75); PLATELET COUNT 80 X10'3 (140-440); RED BLOOD COUNT 3.25 X10'6 (4.20-5.60); RED CELL DISTRIBUTION WIDTH 14.9 % (11.5-14.5); WHITE BLOOD COUNT 18.4 X10'3 (4.5-11.0)
[2018-09-16 02:04] LABS: PROTHROMBIN TIME 10.3 SECONDS (9.0-12.0)
[2018-09-16 02:05] LABS: PARTIAL THROMBOPLASTIN TIME 29 SECONDS (22-32)
[2018-09-16] MEDS: hydrocortisone sod succ/PF 100mg/2ml inj. IV SCH ×4 (02:12→21:08)
[2018-09-16] MEDS: ampicillin inj 2 GM in normal saline 100ml IV soln 100 ML IV SCH ×4 (02:12→21:08)
[2018-09-16 03:16] LABS: TOTAL CELLS COUNTED 100
[2018-09-16 03:17] LABS: PLATELET ESTIMATE DECREASED; TOXIC GRANULATION 2+
[2018-09-16 03:18] LABS: BURR CELLS 2+; TOXIC VACUOLATION FEW
[2018-09-16] MEDS: FENTANYL-0.9 % NACL/PF 100 ML IV PRN (03:21)
[2018-09-16] MEDS: midazolam 100mg in NS 100ml 100 ML IV PRN (03:22)
[2018-09-16 04:36] LABS: ABG BASE EXCESS -9.8 mmol/L (-2.0-3.0); ABG HCO3 13.6 mmol/L (22.0-26.0); ABG OXYGEN SATURATION 95.4 % (95-98); ABG PCO2 (T) 22.6 mmHg (32.0-45.0); ABG PH (T) 7.394 (7.350-7.450); ABG PO2 (T) 75.4 mmHg (83-108); ALLEN'S TEST Positive; FCOHb 0.3 % (0.5-1.5); FMetHb 0.1 % (0.3-1.12); MINUTE VOLUME 12 L/min; PATIENT TEMPERATURE 36.4; PEEP 5 cm H2O; RESPIRATORY RATE 20 b/min; RESPIRATORY RATE (OBSERVED) 24 b/min; TIDAL VOLUME 400 mL; TOTAL HEMOGLOBIN 10.8 G/dl (12.0-16.0)
[2018-09-16 05:51] LABS: BASOPHILS % (AUTO) 0 % (0-1); EOSINOPHILS % (AUTO) 0 % (0-6); HEMATOCRIT 28.2 % (35.0-45.0); HEMOGLOBIN 9.6 g/dl (12.0-16.0); LYMPHOCYTES % (AUTO) 5.8 % (21-51); MEAN CORPUSCULAR HEMOGLOBIN 30.5 PG (27.0-31.0); MEAN CORPUSCULAR VOLUME 89.7 FL (78-98); MEAN PLATELET VOLUME 7.7 FL (7.4-10.4); MONOCYTES # (AUTO) 0.6 X10'3 (0-0.9); MONOCYTES % (AUTO) 3.4 % (2-12); NEUTROPHILS # (AUTO) 16.5 X10'3 (1.8-7.7); NEUTROPHILS % (AUTO) 90.8 % (42-75); PLATELET COUNT 81 X10'3 (140-440); RED BLOOD COUNT 3.14 X10'6 (4.20-5.60); RED CELL DISTRIBUTION WIDTH 15.1 % (11.5-14.5); WHITE BLOOD COUNT 18.2 X10'3 (4.5-11.0)
[2018-09-16 06:19] LABS: MAGNESIUM 2.3 MG/DL (1.5-2.4); PHOSPHORUS 2.6 MG/DL (2.3-4.5)
--- NOTE | 2018-09-16 06:23 | NUR ---
Problems reprioritized. Patient report given, questions answered & plan of care reviewed with Shayla COSTA.
--- NOTE | 2018-09-16 06:30 | NUR ---
Patient in room ICU 2041. I have received report from Corina COSTA and had the opportunity to ask questions and assume patient care.
[2018-09-16 07:04] LABS: TOTAL CELLS COUNTED 100
[2018-09-16 07:05] LABS: PLATELET ESTIMATE DECREASED; TOXIC GRANULATION 1+
[2018-09-16] MEDS: K and/or MAG REPLACEMENT MC SCH (08:00)
[2018-09-16] MEDS: K, MAG and/or Phos replacement - Verify level? MC SCH (08:00)
[2018-09-16] MEDS: insulin glargine (Lantus) pen - multi-dose SQ SCH ×2 (08:13→21:19)
[2018-09-16 09:28] LABS: BASOPHILS % (AUTO) 0.1 % (0-1); EOSINOPHILS % (AUTO) 0 % (0-6); HEMATOCRIT 28.6 % (35.0-45.0); HEMOGLOBIN 9.6 g/dl (12.0-16.0); LYMPHOCYTES # (AUTO) 0.9 X10'3 (1.1-4.8); LYMPHOCYTES % (AUTO) 5.4 % (21-51); MEAN CORPUSCULAR HEMOGLOBIN 30.6 PG (27.0-31.0); MEAN CORPUSCULAR HGB CONC 33.8 % (33.0-36.5); MEAN CORPUSCULAR VOLUME 90.5 FL (78-98); MEAN PLATELET VOLUME 7.5 FL (7.4-10.4); MONOCYTES # (AUTO) 0.6 X10'3 (0-0.9); MONOCYTES % (AUTO) 3.5 % (2-12); NEUTROPHILS # (AUTO) 15.8 X10'3 (1.8-7.7); PLATELET COUNT 64 X10'3 (140-440); RED BLOOD COUNT 3.16 X10'6 (4.20-5.60); RED CELL DISTRIBUTION WIDTH 14.5 % (11.5-14.5); WHITE BLOOD COUNT 17.4 X10'3 (4.5-11.0)
[2018-09-16 09:41] LABS: MAGNESIUM 2.2 MG/DL (1.5-2.4); PHOSPHORUS 2.6 MG/DL (2.3-4.5)
[2018-09-16 10:37] LABS: PLATELET ESTIMATE DECREASED; TOTAL CELLS COUNTED 100; TOXIC GRANULATION 1+
[2018-09-16] MEDS: normal saline 1000ml 1,000 ML IV SCH (11:09)
[2018-09-16] MEDS ORDERED: heparin 1,000unit/ml 10ml vial 10 ML IV ONE (11:18)
[2018-09-16] MEDS ORDERED: normal saline 1000ml 250 ML IV PRN (11:18)
[2018-09-16] MEDS ORDERED: epoetin 20,000 units/ml inj IV ONE (11:20)
[2018-09-16] MEDS ORDERED: heparin 1,000 units/ml 10ml inj HE ONE ×2 (11:25)
[2018-09-16 17:44] LABS: MAGNESIUM 1.9 MG/DL (1.5-2.4)
[2018-09-16 18:21] LABS: ALBUMIN 1.4 G/DL (3.4-5.0); ANION GAP 13 (8-16); BLOOD UREA NITROGEN 28 MG/DL (7-18); CALCIUM 7.2 MG/DL (8.5-10.1); CHLORIDE 102 MMOL/L (99-107); CREATININE 1.87 MG/DL (0.40-0.90); GLUCOSE 143 MG/DL (70-104); POTASSIUM 4.1 MMOL/L (3.5-5.1); SODIUM 135 MMOL/L (135-145); TOTAL CARBON DIOXIDE 19.7 MMOL/L (24-32); eGFR 27 ML/MIN
--- NOTE | 2018-09-16 18:30 | NUR ---
Patient in room ICU 2041. I have received report from Cata and had the opportunity to ask questions and assume patient care.
[2018-09-16 19:23] LABS: HEMATOCRIT 27.6 % (35.0-45.0); HEMOGLOBIN 9.8 g/dl (12.0-16.0); MEAN CORPUSCULAR HEMOGLOBIN 32.2 PG (27.0-31.0); MEAN CORPUSCULAR HGB CONC 35.6 % (33.0-36.5); MEAN CORPUSCULAR VOLUME 90.4 FL (78-98); RED BLOOD COUNT 3.06 X10'6 (4.20-5.60); RED CELL DISTRIBUTION WIDTH 13.8 % (11.5-14.5)
[2018-09-16 19:24] LABS: PLATELET COUNT 97 X10'3 (140-440)
[2018-09-16 19:25] LABS: MEAN PLATELET VOLUME 7.6 FL (7.4-10.4)
[2018-09-16 19:26] LABS: BASOPHILS # (AUTO) 0.1 X10'3 (0-0.2); BASOPHILS % (AUTO) 0.2 % (0-1); EOSINOPHILS % (AUTO) 0 % (0-6); LYMPHOCYTES # (AUTO) 1.3 X10'3 (1.1-4.8); LYMPHOCYTES % (AUTO) 4.8 % (21-51); MONOCYTES # (AUTO) 0.4 X10'3 (0-0.9); MONOCYTES % (AUTO) 1.5 % (2-12); NEUTROPHILS % (AUTO) 93.5 % (42-75)
[2018-09-16 19:28] LABS: WHITE BLOOD COUNT 26.8 X10'3 (4.5-11.0)
--- NOTE | 2018-09-16 19:40 | NUR ---
RN Note -MD Communication Called critical WBC of 26.8 to Kevin Edward and updated on other labs. No new orders at this time.
[2018-09-16 20:01] LABS: TOTAL CELLS COUNTED 100
[2018-09-16 20:02] LABS: PLATELET ESTIMATE DECREASED; TOXIC GRANULATION 2+
[2018-09-16] MEDS: famotidine/PF 10 mg/ml inj IV SCH (21:08)
[2018-09-17] VITALS (24 sets, daily range): BP systolic 92–154; BP diastolic 47–82
[2018-09-17] MEDS: metroNIDAZOLE-Flagyl 500mg/NS 100 ML IV SCH ×3 (00:42→17:07)
[2018-09-17] MEDS: hydrocortisone sod succ/PF 100mg/2ml inj. IV SCH ×4 (02:28→20:55)
[2018-09-17] MEDS: ampicillin inj 2 GM in normal saline 100ml IV soln 100 ML IV SCH ×4 (02:29→20:55)
[2018-09-17 03:29] LABS: ALANINE AMINOTRANSFERASE 17 U/L (12-78); ALBUMIN 1.4 G/DL (3.4-5.0); ALBUMIN/GLOBULIN RATIO 0.4 (1.1-1.5); ALKALINE PHOSPHATASE 140 IU/L (46-116); ANION GAP 11 (8-16); ASPARTATE AMINO TRANSFERASE 24 U/L (10-37); BILIRUBIN,TOTAL 0.3 MG/DL (0.1-1.0); BLOOD UREA NITROGEN 36 MG/DL (7-18); BUN/CREATININE RATIO 15.1 (6.6-38.0); CHLORIDE 103 MMOL/L (99-107); CREATININE 2.38 MG/DL (0.40-0.90); GLUCOSE 155 MG/DL (70-104); PHOSPHORUS 2.7 MG/DL (2.3-4.5); POTASSIUM 4.5 MMOL/L (3.5-5.1); SODIUM 135 MMOL/L (135-145); TOTAL CARBON DIOXIDE 21.4 MMOL/L (24-32); TOTAL PROTEIN 5.3 G/DL (6.4-8.2); eGFR 21 ML/MIN
[2018-09-17 04:03] LABS: HEMATOCRIT 27.9 % (35.0-45.0); HEMOGLOBIN 9.8 g/dl (12.0-16.0); MEAN CORPUSCULAR HEMOGLOBIN 31.6 PG (27.0-31.0); MEAN CORPUSCULAR HGB CONC 35.2 % (33.0-36.5); MEAN CORPUSCULAR VOLUME 89.6 FL (78-98); PLATELET COUNT 90 X10'3 (140-440); RED BLOOD COUNT 3.11 X10'6 (4.20-5.60); RED CELL DISTRIBUTION WIDTH 13.8 % (11.5-14.5); WHITE BLOOD COUNT 20.4 X10'3 (4.5-11.0)
[2018-09-17 04:04] LABS: BASOPHILS % (AUTO) 0.1 % (0-1); EOSINOPHILS % (AUTO) 0 % (0-6); LYMPHOCYTES # (AUTO) 1.1 X10'3 (1.1-4.8); LYMPHOCYTES % (AUTO) 5.3 % (21-51); MEAN PLATELET VOLUME 7.6 FL (7.4-10.4); MONOCYTES # (AUTO) 0.3 X10'3 (0-0.9); MONOCYTES % (AUTO) 1.3 % (2-12); NEUTROPHILS % (AUTO) 93.3 % (42-75)
[2018-09-17 04:23] LABS: PROTHROMBIN TIME 10.5 SECONDS (9.0-12.0)
[2018-09-17 04:24] LABS: PARTIAL THROMBOPLASTIN TIME 27 SECONDS (22-32)
[2018-09-17 05:24] LABS: TOTAL CELLS COUNTED 100
[2018-09-17 05:25] LABS: PLATELET ESTIMATE DECREASED; TOXIC GRANULATION 2+
[2018-09-17 05:31] LABS: ABG BASE EXCESS -4.1 mmol/L (-2.0-3.0); ABG HCO3 18.8 mmol/L (22.0-26.0); ABG PCO2 (T) 27.2 mmHg (32.0-45.0); ABG PH (T) 7.456 (7.350-7.450); ABG PO2 (T) 70.8 mmHg (83-108); FCOHb 0.3 % (0.5-1.5); FMetHb 0.2 % (0.3-1.12); FO2Hb 94.5 % (94-100); MINUTE VOLUME 8 L/min; PATIENT TEMPERATURE 36.7; PEEP 5 cm H2O; RESPIRATORY RATE 20 b/min; RESPIRATORY RATE (OBSERVED) 20 b/min; TIDAL VOLUME 400 mL; TOTAL HEMOGLOBIN 10.6 G/dl (12.0-16.0)
[2018-09-17] MEDS: insulin regular, DKA only 100 UNIT in normal saline 100ml IV soln 99 ML IV SCH ×2 (05:34)
--- NOTE | 2018-09-17 06:30 | NUR ---
Patient in room ICU 2041. I have received report from Mac RN and had the opportunity to ask questions and assume patient care.
[2018-09-17] MEDS: K and/or MAG REPLACEMENT MC SCH (07:54)
[2018-09-17] MEDS: K, MAG and/or Phos replacement - Verify level? MC SCH (07:54)
[2018-09-17] MEDS: famotidine/PF 10 mg/ml inj IV SCH ×2 (08:01→20:55)
[2018-09-17] MEDS: normal saline 1000ml 1,000 ML IV SCH (08:01)
[2018-09-17] MEDS: insulin glargine (Lantus) pen - multi-dose SQ SCH (08:03)
[2018-09-17] MEDS: NORepinephrine 8mg/ 250ml NS 250 ML IV SCH (09:01)
--- NOTE | 2018-09-17 18:30 | NUR ---
Patient in room ICU 2041. I have received report from Annia and had the opportunity to ask questions and assume patient care.
--- NOTE | 2018-09-17 18:32 | NUR ---
Problems reprioritized. Patient report given, questions answered & plan of care reviewed with Mac RN.
[2018-09-17] MEDS ORDERED: insulin glargine (Lantus) pen - multi-dose SQ ONE (20:00)
--- NOTE | 2018-09-17 20:30 | NUR ---
RN Note -MD Communication Called Kevin Edward regarding Lantus order clarification since pt is off DKA protocol and on hyperglycemia protocol. Received order to keep Lantus 12 units BID rather than switching to protocol.
[2018-09-17] MEDS ORDERED: dextrose 50%-water 50ml dispensing syringe IV PRN (20:50)
[2018-09-17] MEDS ORDERED: glucagon, human recombinant 1mg kit SUBCUT PRN (20:50)
[2018-09-17] MEDS ORDERED: MESSAGE TO PHARMACY PO ONE (20:50)
[2018-09-17] MEDS ORDERED: dextrose ORAL solution 15 GM/59 ML bottle PO PRN (20:50)
[2018-09-17] MEDS: dexmedetomidin/NS 400mcg/100ml 100 ML IV SCH (20:55)
[2018-09-17] MEDS ORDERED: insulin glargine (Lantus) pen - multi-dose SQ SCH (21:00)
[2018-09-17] MEDS: insulin regular, human vial - multi-dose SQ SCH (22:21)
[2018-09-17 23:30] LABS: ALBUMIN 1.3 G/DL (3.4-5.0); ANION GAP 16 (8-16); BLOOD UREA NITROGEN 55 MG/DL (7-18); BUN/CREATININE RATIO 17.8 (6.6-38.0); CALCIUM 7.1 MG/DL (8.5-10.1); CHLORIDE 102 MMOL/L (99-107); CREATININE 3.09 MG/DL (0.40-0.90); GLUCOSE 392 MG/DL (70-104); MAGNESIUM 2.1 MG/DL (1.5-2.4); PHOSPHORUS 4.2 MG/DL (2.3-4.5); POTASSIUM 4.7 MMOL/L (3.5-5.1); SODIUM 135 MMOL/L (135-145); TOTAL CARBON DIOXIDE 17.5 MMOL/L (24-32); eGFR 15 ML/MIN
[2018-09-18] VITALS (23 sets, daily range): BP systolic 89–150; BP diastolic 43–72
[2018-09-18] MEDS: normal saline 1000ml 1,000 ML IV SCH ×2 (00:53→22:25)
[2018-09-18] MEDS: metroNIDAZOLE-Flagyl 500mg/NS 100 ML IV SCH ×3 (00:54→19:55)
--- NOTE | 2018-09-18 03:00 | NUR ---
RN Note -MD Communication Called Kevin Edward regarding pt's blood sugar of 422. Received order for insulin drip.
[2018-09-18] MEDS: ampicillin inj 2 GM in normal saline 100ml IV soln 100 ML IV SCH ×4 (03:11→19:55)
[2018-09-18] MEDS: hydrocortisone sod succ/PF 100mg/2ml inj. IV SCH ×4 (03:11→19:55)
[2018-09-18] MEDS ORDERED: dextrose 50%-water 50ml dispensing syringe IV PRN (03:20)
[2018-09-18 03:42] LABS: INR 1.1 INR; PARTIAL THROMBOPLASTIN TIME 26 SECONDS (22-32); PROTHROMBIN TIME 10.7 SECONDS (9.0-12.0)
[2018-09-18 03:45] LABS: BASOPHILS % (AUTO) 0 % (0-1); EOSINOPHILS # (AUTO) 0.3 X10'3 (0-0.9); EOSINOPHILS % (AUTO) 1.7 % (0-6); HEMATOCRIT 28.3 % (35.0-45.0); HEMOGLOBIN 9.5 g/dl (12.0-16.0); LYMPHOCYTES # (AUTO) 1.2 X10'3 (1.1-4.8); LYMPHOCYTES % (AUTO) 8.1 % (21-51); MEAN CORPUSCULAR HEMOGLOBIN 30.2 PG (27.0-31.0); MEAN CORPUSCULAR HGB CONC 33.5 % (33.0-36.5); MEAN CORPUSCULAR VOLUME 90.3 FL (78-98); MEAN PLATELET VOLUME 6.9 FL (7.4-10.4); MONOCYTES # (AUTO) 0.6 X10'3 (0-0.9); NEUTROPHILS # (AUTO) 12.8 X10'3 (1.8-7.7); NEUTROPHILS % (AUTO) 86.2 % (42-75); PLATELET COUNT 105 X10'3 (140-440); RED BLOOD COUNT 3.13 X10'6 (4.20-5.60); RED CELL DISTRIBUTION WIDTH 14.6 % (11.5-14.5); WHITE BLOOD COUNT 14.9 X10'3 (4.5-11.0)
[2018-09-18 03:47] LABS: ALANINE AMINOTRANSFERASE 16 U/L (12-78); ALBUMIN 1.3 G/DL (3.4-5.0); ALBUMIN/GLOBULIN RATIO 0.3 (1.1-1.5); ALKALINE PHOSPHATASE 142 IU/L (46-116); ANION GAP 15 (8-16); ASPARTATE AMINO TRANSFERASE 18 U/L (10-37); BILIRUBIN,TOTAL 0.3 MG/DL (0.1-1.0); BLOOD UREA NITROGEN 60 MG/DL (7-18); BUN/CREATININE RATIO 18.9 (6.6-38.0); CALCIUM 6.9 MG/DL (8.5-10.1); CHLORIDE 103 MMOL/L (99-107); CREATININE 3.18 MG/DL (0.40-0.90); PHOSPHORUS 4.4 MG/DL (2.3-4.5); POTASSIUM 4.6 MMOL/L (3.5-5.1); PREALBUMIN 14.6 MG/DL (19-36); SODIUM 134 MMOL/L (135-145); TOTAL CARBON DIOXIDE 15.8 MMOL/L (24-32); TOTAL PROTEIN 5.2 G/DL (6.4-8.2); eGFR 15 ML/MIN
[2018-09-18 03:58] LABS: GLUCOSE 460 MG/DL (70-104)
[2018-09-18] MEDS: insulin regular, human 100 UNIT in normal saline 100ml IV soln 99 ML IV SCH ×4 (04:06→22:36)
[2018-09-18 04:46] LABS: NUCLEATED RED BLOOD CELLS 1 /100WBC (0-0); PLATELET ESTIMATE DECREASED; TOTAL CELLS COUNTED 100; TOXIC GRANULATION 1+
[2018-09-18 05:15] LABS: ABG HCO3 14.5 mmol/L (22.0-26.0); ABG OXYGEN SATURATION 92.4 % (95-98); ABG PCO2 (T) 26.1 mmHg (32.0-45.0); ABG PH (T) 7.369 (7.350-7.450); ABG PO2 (T) 71.4 mmHg (83-108); FCOHb 0.3 % (0.5-1.5); FMetHb 0.1 % (0.3-1.12); MINUTE VOLUME 9 L/min; PATIENT TEMPERATURE 38.5; PEEP 5 cm H2O; RESPIRATORY RATE 18 b/min; RESPIRATORY RATE (OBSERVED) 20 b/min; TIDAL VOLUME 400 mL; TOTAL HEMOGLOBIN 10.4 G/dl (12.0-16.0)
[2018-09-18] MEDS ORDERED: insulin Lispro (HumaLOG) vial - multi-dose SQ PRN (05:15)
[2018-09-18] MEDS: insulin Lispro (HumaLOG) vial - multi-dose SQ PRN ×2 (05:23→06:29)
--- NOTE | 2018-09-18 06:30 | NUR ---
Patient in room ICU 2041. I have received report from [facility] and had the opportunity to ask questions and assume patient care.
[2018-09-18] MEDS: K, MAG and/or Phos replacement - Verify level? MC SCH (08:00)
[2018-09-18 08:18] LABS: HBSAG SCREEN Negative (Negative)
[2018-09-18] MEDS: famotidine/PF 10 mg/ml inj IV SCH ×2 (09:16→19:55)
[2018-09-18] MEDS ORDERED: heparin 1,000unit/ml 10ml vial 10 ML IV ONE (09:31)
[2018-09-18] MEDS ORDERED: normal saline 1000ml 250 ML IV PRN (09:31)
[2018-09-18] MEDS ORDERED: heparin 1,000 units/ml 10ml inj HE ONE ×2 (09:35)
[2018-09-18] MEDS ORDERED: epoetin 20,000 units/ml inj IV ONE (09:35)
[2018-09-18] MEDS: FENTANYL-0.9 % NACL/PF 100 ML IV PRN (09:39)
[2018-09-18] MEDS: dexmedetomidin/NS 400mcg/100ml 100 ML IV SCH ×2 (10:14→17:23)
[2018-09-18] MEDS: insulin glargine (Lantus) pen - multi-dose SQ SCH ×2 (10:50→19:58)
--- NOTE | 2018-09-18 14:22 | NUR ---
reassessment: Pt back in DKA today per MD since insulin drip as well as DM meds d/c w/ GLU increased to 422. Insulin drip and Lantus restarted w/ GLU back down to 180s. Pt tolerating tube feeds at goal w/ no residuals. LBM 09/16. Given first admit and intubated unable to obtain wt loss hx. Labial +4 edema, BLE/BUE +2 edemas present, mild weakness. Given lack of criteria does not qualify for malnutrition at this time. Rec: 1. Trickle OGTF using Vital AF at 30ml/hr per breaster; once OK per MD advance to 65ml/hr goal 2. additional water flush per breaster; on HD 3. prealbumin Q /, daily wts 4. monitor for refeeding signs given starvation ketosis 5. upon extubation; DM ed A1C 12.5 Addendum: 09/18/18 at [address] Amended: Links added.
--- NOTE | 2018-09-18 16:38 | NUR ---
pt alternates from agitation- sitting up and thrashing to quiet. fentanyl restarted. versed at 1. able to slowly increase precedex to max of .7- hr mostly 60's-cc 50's early am. pt more agitated with hd. levo up and down- more required with hd. md updated. updates to family by phone
[2018-09-19] VITALS (27 sets, daily range): BP systolic 85–154; BP diastolic 48–69
[2018-09-19] MEDS: metroNIDAZOLE-Flagyl 500mg/NS 100 ML IV SCH ×4 (00:47→23:25)
[2018-09-19] MEDS: midazolam 100mg in NS 100ml 100 ML IV PRN ×2 (00:47→23:39)
[2018-09-19] MEDS: dexmedetomidin/NS 400mcg/100ml 100 ML IV SCH ×3 (00:47→16:14)
[2018-09-19] MEDS: NORepinephrine 8mg/ 250ml NS 250 ML IV SCH (00:48)
[2018-09-19] MEDS: FENTANYL-0.9 % NACL/PF 100 ML IV PRN ×2 (00:48→14:37)
[2018-09-19] MEDS: hydrocortisone sod succ/PF 100mg/2ml inj. IV SCH ×4 (02:22→20:11)
[2018-09-19] MEDS: ampicillin inj 2 GM in normal saline 100ml IV soln 100 ML IV SCH ×4 (02:22→20:11)
[2018-09-19 03:10] LABS: ALANINE AMINOTRANSFERASE 15 U/L (12-78); ALBUMIN 1.4 G/DL (3.4-5.0); ALBUMIN/GLOBULIN RATIO 0.4 (1.1-1.5); ALKALINE PHOSPHATASE 149 IU/L (46-116); ANION GAP 16 (8-16); ASPARTATE AMINO TRANSFERASE 18 U/L (10-37); BILIRUBIN,TOTAL 0.3 MG/DL (0.1-1.0); BLOOD UREA NITROGEN 52 MG/DL (7-18); BUN/CREATININE RATIO 18.1 (6.6-38.0); CALCIUM 6.9 MG/DL (8.5-10.1); CHLORIDE 104 MMOL/L (99-107); CREATININE 2.88 MG/DL (0.40-0.90); GLUCOSE 151 MG/DL (70-104); MAGNESIUM 1.8 MG/DL (1.5-2.4); PHOSPHORUS 3.3 MG/DL (2.3-4.5); SODIUM 137 MMOL/L (135-145); TOTAL CARBON DIOXIDE 17.4 MMOL/L (24-32); TOTAL PROTEIN 5.1 G/DL (6.4-8.2); eGFR 17 ML/MIN
[2018-09-19 03:11] LABS: PROTHROMBIN TIME 10.9 SECONDS (9.0-12.0)
[2018-09-19 03:12] LABS: INR 1.1 INR; PARTIAL THROMBOPLASTIN TIME 24 SECONDS (22-32)
[2018-09-19 03:15] LABS: BASOPHILS % (AUTO) 0.1 % (0-1); EOSINOPHILS # (AUTO) 0.1 X10'3 (0-0.9); HEMATOCRIT 27.5 % (35.0-45.0); HEMOGLOBIN 9.3 g/dl (12.0-16.0); LYMPHOCYTES # (AUTO) 1.5 X10'3 (1.1-4.8); LYMPHOCYTES % (AUTO) 11.4 % (21-51); MEAN CORPUSCULAR HEMOGLOBIN 30.4 PG (27.0-31.0); MEAN CORPUSCULAR HGB CONC 33.8 % (33.0-36.5); MEAN CORPUSCULAR VOLUME 89.7 FL (78-98); MEAN PLATELET VOLUME 7.2 FL (7.4-10.4); MONOCYTES % (AUTO) 7.5 % (2-12); NEUTROPHILS # (AUTO) 10.9 X10'3 (1.8-7.7); PLATELET COUNT 113 X10'3 (140-440); RED BLOOD COUNT 3.07 X10'6 (4.20-5.60); RED CELL DISTRIBUTION WIDTH 14.3 % (11.5-14.5); WHITE BLOOD COUNT 13.6 X10'3 (4.5-11.0)
[2018-09-19 03:56] LABS: ABG BASE EXCESS -5.3 mmol/L (-2.0-3.0); ABG HCO3 17.3 mmol/L (22.0-26.0); ABG PCO2 (T) 26.2 mmHg (32.0-45.0); ABG PH (T) 7.435 (7.350-7.450); ABG PO2 (T) 58.4 mmHg (83-108); MINUTE VOLUME 10 L/min; PATIENT TEMPERATURE 36.4; PEEP 5 cm H2O; RESPIRATORY RATE 18 b/min; RESPIRATORY RATE (OBSERVED) 21 b/min; TIDAL VOLUME 400 mL
[2018-09-19 04:18] LABS: NUCLEATED RED BLOOD CELLS 1 /100WBC (0-0); PLATELET ESTIMATE DECREASED; POLYCHROMASIA 1+; TOTAL CELLS COUNTED 100; TOXIC GRANULATION 1+
--- NOTE | 2018-09-19 06:30 | NUR ---
Patient in room ICU 2041. I have received report from [facility] and had the opportunity to ask questions and assume patient care.
[2018-09-19] MEDS: famotidine/PF 10 mg/ml inj IV SCH ×2 (07:45→20:11)
[2018-09-19] MEDS: K, MAG and/or Phos replacement - Verify level? MC SCH (08:00)
[2018-09-19] MEDS: insulin glargine (Lantus) pen - multi-dose SQ SCH ×2 (08:02→20:18)
--- NOTE | 2018-09-19 12:44 | NUR ---
update to md- pt from calm with decreased bp and hr to severely agitated- kicking, attempting out of restraints with shaking of head. precedex up to .7, then returned to precedex of .5 for hr 52. fentanyl and versed boluses given for agitation. weaning parameters done- but wouldnt follow commands. opens eyes- attempts to look and focus, but unable . levo parameters changed to keep map greater than 60. onsulin gtt dcd at 1115 with bs 124 and rate of 1.8,
--- NOTE | 2018-09-19 14:30 | NUR ---
to uir for tunnel cath. pt extremely agitated- multiple bolus of fent and versed given- slow results. tf off- will do bs upon return and start level 1 hyperglycemic protocol
[2018-09-19] MEDS ORDERED: LIDOcaine 1%/PF 5ML 10 MG/ML VIAL ONE (14:50)
[2018-09-19] MEDS ORDERED: heparin 1,000unit/ml 10ml vial 10 ML ONE (15:03)
--- NOTE | 2018-09-19 16:00 | NUR ---
returned from ir- became severely agited again- resedated- griselda dcd with 15' held pressure
[2018-09-19] MEDS: insulin regular, human vial - multi-dose SQ SCH ×2 (16:10→20:16)
--- NOTE | 2018-09-19 17:56 | NUR ---
jo ann mai at bs- updated.
[2018-09-20] VITALS (23 sets, daily range): BP systolic 80–146; BP diastolic 46–68
[2018-09-20] MEDS: ampicillin inj 2 GM in normal saline 100ml IV soln 100 ML IV SCH ×4 (01:32→20:41)
[2018-09-20] MEDS: dexmedetomidin/NS 400mcg/100ml 100 ML IV SCH ×3 (01:32→18:52)
[2018-09-20] MEDS: hydrocortisone sod succ/PF 100mg/2ml inj. IV SCH ×4 (01:33→20:41)
[2018-09-20] MEDS: insulin regular, human vial - multi-dose SQ SCH ×4 (01:55→20:49)
[2018-09-20 02:57] LABS: BASOPHILS % (AUTO) 0 % (0-1); EOSINOPHILS # (AUTO) 0.2 X10'3 (0-0.9); HEMATOCRIT 29.5 % (35.0-45.0); HEMOGLOBIN 9.9 g/dl (12.0-16.0); LYMPHOCYTES # (AUTO) 1.8 X10'3 (1.1-4.8); LYMPHOCYTES % (AUTO) 11.9 % (21-51); MEAN CORPUSCULAR HEMOGLOBIN 30.5 PG (27.0-31.0); MEAN CORPUSCULAR HGB CONC 33.5 % (33.0-36.5); MEAN CORPUSCULAR VOLUME 91.2 FL (78-98); MEAN PLATELET VOLUME 7.3 FL (7.4-10.4); MONOCYTES # (AUTO) 1.2 X10'3 (0-0.9); MONOCYTES % (AUTO) 7.8 % (2-12); NEUTROPHILS # (AUTO) 12.3 X10'3 (1.8-7.7); NEUTROPHILS % (AUTO) 79.3 % (42-75); PLATELET COUNT 165 X10'3 (140-440); RED BLOOD COUNT 3.24 X10'6 (4.20-5.60); RED CELL DISTRIBUTION WIDTH 13.9 % (11.5-14.5); WHITE BLOOD COUNT 15.4 X10'3 (4.5-11.0)
[2018-09-20 02:59] LABS: ALANINE AMINOTRANSFERASE 15 U/L (12-78); ALBUMIN 1.4 G/DL (3.4-5.0); ALBUMIN/GLOBULIN RATIO 0.4 (1.1-1.5); ALKALINE PHOSPHATASE 134 IU/L (46-116); ANION GAP 17 (8-16); ASPARTATE AMINO TRANSFERASE 20 U/L (10-37); BILIRUBIN,TOTAL 0.3 MG/DL (0.1-1.0); BLOOD UREA NITROGEN 67 MG/DL (7-18); BUN/CREATININE RATIO 19.8 (6.6-38.0); CALCIUM 6.9 MG/DL (8.5-10.1); CHLORIDE 103 MMOL/L (99-107); CREATININE 3.39 MG/DL (0.40-0.90); GLUCOSE 196 MG/DL (70-104); MAGNESIUM 1.9 MG/DL (1.5-2.4); PHOSPHORUS 4.4 MG/DL (2.3-4.5); POTASSIUM 4.3 MMOL/L (3.5-5.1); SODIUM 137 MMOL/L (135-145); TOTAL CARBON DIOXIDE 16.8 MMOL/L (24-32); eGFR 14 ML/MIN
[2018-09-20 03:03] LABS: INR 1.1 INR; PARTIAL THROMBOPLASTIN TIME 26 SECONDS (22-32); PROTHROMBIN TIME 10.8 SECONDS (9.0-12.0)
[2018-09-20 03:56] LABS: ABG BASE EXCESS -7.5 mmol/L (-2.0-3.0); ABG HCO3 15.8 mmol/L (22.0-26.0); ABG OXYGEN SATURATION 89.3 % (95-98); ABG PCO2 (T) 24.8 mmHg (32.0-45.0); ABG PH (T) 7.418 (7.350-7.450); ABG PO2 (T) 51.9 mmHg (83-108); FCOHb 0.3 % (0.5-1.5); FMetHb 0.3 % (0.3-1.12); FO2Hb 88.8 % (94-100); MINUTE VOLUME 13 L/min; PEEP 5 cm H2O; RESPIRATORY RATE 18 b/min; RESPIRATORY RATE (OBSERVED) 22 b/min; TIDAL VOLUME 400 mL; TOTAL HEMOGLOBIN 11.2 G/dl (12.0-16.0)
[2018-09-20] MEDS: FENTANYL-0.9 % NACL/PF 100 ML IV PRN ×4 (05:11→23:05)
--- NOTE | 2018-09-20 06:30 | NUR ---
Patient in room ICU 2041. I have received report from [facility] and had the opportunity to ask questions and assume patient care.
[2018-09-20] MEDS ORDERED: normal saline 1000ml 250 ML IV PRN (08:00)
[2018-09-20] MEDS ORDERED: heparin 1,000 units/ml 10ml inj HE ONE ×2 (08:00)
[2018-09-20] MEDS ORDERED: heparin 1,000unit/ml 10ml vial 10 ML IV ONE (08:00)
[2018-09-20] MEDS: K, MAG and/or Phos replacement - Verify level? MC SCH (08:00)
[2018-09-20] MEDS ORDERED: epoetin 20,000 units/ml inj IV ONE (08:00)
[2018-09-20] MEDS: famotidine/PF 10 mg/ml inj IV SCH ×2 (08:46→20:41)
[2018-09-20] MEDS: insulin glargine (Lantus) pen - multi-dose SQ SCH ×2 (08:54→20:49)
--- NOTE | 2018-09-20 09:00 | NUR ---
update to dr nava- fentanyl up to 240mcg, will slowly decrease versed as able to off. before this several boluses given to combat agitation for fear of harming self. hd starting- sbp down- increasing levom for rx.
[2018-09-20 09:40] LABS: NUCLEATED RED BLOOD CELLS 1 /100WBC (0-0); PLATELET ESTIMATE NORMAL; ROULEAUX 1+; TOTAL CELLS COUNTED 100
[2018-09-20 09:41] LABS: POLYCHROMASIA 1+; TOXIC GRANULATION 2+
[2018-09-20] MEDS: midazolam 100mg in NS 100ml 100 ML IV PRN (10:23)
--- NOTE | 2018-09-20 13:18 | NUR ---
Reassessment: Documented that TF is at 65 mL/hr, recommended goal rate to meet nutrient needs. Pt tolerating with low residuals 0-50 mL. BG levels well maintained with range 97-196 on Lantus and short acting insulin with dextrose PRN for coverage if lows. LBM 09/20. Will continue to follow. Rec: 1. Trickle OGTF using Vital AF at 30ml/hr per patent solicitor; once OK per MD advance to 65ml/hr goal 2. additional water flush per patent solicitor; on HD 3. prealbumin Q /, daily wts 4. monitor for refeeding signs given starvation ketosis 5. upon extubation; DM ed A1C 12.5 Addendum: 09/20/18 at [address] Amended: Links added.
--- NOTE | 2018-09-20 14:00 | NUR ---
pt calm throughout rx- 2liters off- will now decrease levo and versed.
[2018-09-20] MEDS: metroNIDAZOLE-Flagyl 500mg/NS 100 ML IV SCH ×2 (14:59→15:29)
--- NOTE | 2018-09-20 17:54 | NUR ---
dr nava aware of prob crack in balloon , but tv adequate with good sat. maintaining cuff pressures with only a couple times needed to increase. pt sedated well.
--- NOTE | 2018-09-20 18:45 | NUR ---
184..Patient in room ICU 2041. I have received report from Joaquin COSTA and had the opportunity to ask questions and assume patient care.
[2018-09-20] MEDS: normal saline 1000ml 1,000 ML IV SCH (22:25)
[2018-09-21] VITALS (20 sets, daily range): BP systolic 108–172; BP diastolic 51–86
[2018-09-21] MEDS: metroNIDAZOLE-Flagyl 500mg/NS 100 ML IV SCH ×3 (00:12→16:13)
[2018-09-21] MEDS: ampicillin inj 2 GM in normal saline 100ml IV soln 100 ML IV SCH ×4 (01:34→20:37)
[2018-09-21] MEDS: hydrocortisone sod succ/PF 100mg/2ml inj. IV SCH ×4 (01:34→20:36)
[2018-09-21] MEDS: dexmedetomidin/NS 400mcg/100ml 100 ML IV SCH ×2 (01:35→09:10)
[2018-09-21] MEDS: insulin regular, human vial - multi-dose SQ SCH ×4 (01:52→20:55)
--- NOTE | 2018-09-21 02:32 | NUR ---
2000..Assessment as noted,Precedex and fentanyl effective for sedation.
--- NOTE | 2018-09-21 02:33 | NUR ---
0000..No changes noted.
--- NOTE | 2018-09-21 02:33 | NUR ---
0200..Fio2 increased for dropping sats.
[2018-09-21 02:35] LABS: BASOPHILS % (AUTO) 0.1 % (0-1); EOSINOPHILS % (AUTO) 0 % (0-6); HEMATOCRIT 29.2 % (35.0-45.0); HEMOGLOBIN 9.8 g/dl (12.0-16.0); LYMPHOCYTES # (AUTO) 2.1 X10'3 (1.1-4.8); LYMPHOCYTES % (AUTO) 9.8 % (21-51); MEAN CORPUSCULAR HEMOGLOBIN 30.4 PG (27.0-31.0); MEAN CORPUSCULAR HGB CONC 33.6 % (33.0-36.5); MEAN CORPUSCULAR VOLUME 90.3 FL (78-98); MEAN PLATELET VOLUME 6.8 FL (7.4-10.4); MONOCYTES # (AUTO) 1.8 X10'3 (0-0.9); MONOCYTES % (AUTO) 8.2 % (2-12); NEUTROPHILS # (AUTO) 17.7 X10'3 (1.8-7.7); NEUTROPHILS % (AUTO) 81.9 % (42-75); PLATELET COUNT 164 X10'3 (140-440); RED BLOOD COUNT 3.23 X10'6 (4.20-5.60); RED CELL DISTRIBUTION WIDTH 14.4 % (11.5-14.5); WHITE BLOOD COUNT 21.6 X10'3 (4.5-11.0)
[2018-09-21 02:54] LABS: ALANINE AMINOTRANSFERASE 16 U/L (12-78); ALBUMIN 1.4 G/DL (3.4-5.0); ALBUMIN/GLOBULIN RATIO 0.4 (1.1-1.5); ALKALINE PHOSPHATASE 126 IU/L (46-116); ANION GAP 14 (8-16); ASPARTATE AMINO TRANSFERASE 20 U/L (10-37); BILIRUBIN,TOTAL 0.3 MG/DL (0.1-1.0); BLOOD UREA NITROGEN 44 MG/DL (7-18); BUN/CREATININE RATIO 15.8 (6.6-38.0); CALCIUM 7.1 MG/DL (8.5-10.1); CHLORIDE 103 MMOL/L (99-107); CREATININE 2.79 MG/DL (0.40-0.90); GLUCOSE 125 MG/DL (70-104); MAGNESIUM 1.8 MG/DL (1.5-2.4); PHOSPHORUS 3.9 MG/DL (2.3-4.5); POTASSIUM 4.2 MMOL/L (3.5-5.1); SODIUM 139 MMOL/L (135-145); TOTAL CARBON DIOXIDE 22.2 MMOL/L (24-32); TOTAL PROTEIN 5.1 G/DL (6.4-8.2); eGFR 17 ML/MIN
[2018-09-21] MEDS: FENTANYL-0.9 % NACL/PF 100 ML IV PRN ×3 (02:55→13:47)
[2018-09-21 03:19] LABS: INR 1.1 INR; PARTIAL THROMBOPLASTIN TIME 25 SECONDS (22-32); PROTHROMBIN TIME 10.7 SECONDS (9.0-12.0)
[2018-09-21 03:30] LABS: ABG BASE EXCESS -3.9 mmol/L (-2.0-3.0); ABG HCO3 20.7 mmol/L (22.0-26.0); ABG OXYGEN SATURATION 92.3 % (95-98); ABG PCO2 (T) 35.5 mmHg (32.0-45.0); ABG PH (T) 7.382 (7.350-7.450); ABG PO2 (T) 64.5 mmHg (83-108); FCOHb 0.3 % (0.5-1.5); MINUTE VOLUME 8 L/min; PATIENT TEMPERATURE 36.7; PEEP 5 cm H2O; RESPIRATORY RATE 18 b/min; RESPIRATORY RATE (OBSERVED) 18 b/min; TIDAL VOLUME 400 mL
--- NOTE | 2018-09-21 05:08 | NUR ---
0400..No changes noted.
--- NOTE | 2018-09-21 06:21 | NUR ---
0620..Problems reprioritized. Patient report given, questions answered & plan of care reviewed with Monica COSTA.
--- NOTE | 2018-09-21 06:24 | NUR ---
Patient in room ICU 2041. I have received report from IGOR Perez and had the opportunity to ask questions and assume patient care.
--- NOTE | 2018-09-21 07:00 | NUR ---
Bp's so far stable with maps in 70's, via arterial line. Levophed @ 2 mcg's, turned off. Will monitor for need.
[2018-09-21 07:21] LABS: ANISOCYTOSIS 1+; PLATELET ESTIMATE NORMAL; POLYCHROMASIA 1+; TOTAL CELLS COUNTED 100
--- NOTE | 2018-09-21 07:33 | NUR ---
Per Dr Garcia, Fent turned off to improve wakefulness and prepare for extubation. May give pushes prn. On Precedex at 0.7 mcg, sedation vacation started.
[2018-09-21] MEDS: K, MAG and/or Phos replacement - Verify level? MC SCH (08:00)
[2018-09-21] MEDS: insulin glargine (Lantus) pen - multi-dose SQ SCH ×2 (08:17→20:55)
[2018-09-21] MEDS: famotidine/PF 10 mg/ml inj IV SCH ×2 (08:20→20:36)
[2018-09-21] MEDS ORDERED: heparin 1,000unit/ml 10ml vial 10 ML IV ONE (10:28)
[2018-09-21] MEDS: midazolam 100mg in NS 100ml 100 ML IV PRN (11:15)
--- NOTE | 2018-09-21 11:16 | NUR ---
Fentanyl and Versed back on per Dr Garcia, pt receiving dialysis prior to extubation. Precedex turned off; ineffective for sedation for patient
[2018-09-21 11:30] LABS: C DIFF ANTIGEN NEGATIVE (NEGATIVE); C DIFF SPECIMEN=DIARRHEA? ACCEPTABLE; C DIFFICILE TOXINS A&B NEGATIVE (Neg)
--- NOTE | 2018-09-21 12:08 | NUR ---
Pt requiring Levophed with sedation, and increased dose with dialysis, now to 8mcg.
[2018-09-21] MEDS: NORepinephrine 8mg/ 250ml NS 250 ML IV SCH (12:20)
--- NOTE | 2018-09-21 20:06 | NUR ---
1954 pt extubated by PT and RN, pt had cuff leak, extubate per Dr Abarca. pt on 2LNC with spo2 at 98% 2005 Called daughter Charline and notified of extubation
[2018-09-21] MEDS: hydrALAZINE 20mg/ml inj. IV PRN (23:13)
[2018-09-22] VITALS (20 sets, daily range): BP systolic 124–166; BP diastolic 63–83
[2018-09-22] MEDS: metroNIDAZOLE-Flagyl 500mg/NS 100 ML IV SCH ×3 (00:29→16:58)
[2018-09-22] MEDS: morphine 4 MG/ML inj SYRINge IV PRN ×2 (00:33→04:30)
[2018-09-22] MEDS: ondansetron/PF 4mg/2ml inj IV PRN (01:07)
[2018-09-22] MEDS: hydrocortisone sod succ/PF 100mg/2ml inj. IV SCH ×4 (02:16→20:58)
[2018-09-22] MEDS: ampicillin inj 2 GM in normal saline 100ml IV soln 100 ML IV SCH ×3 (02:16→15:22)
[2018-09-22] MEDS: dextrose 50%-water 50ml dispensing syringe IV PRN ×3 (02:29→08:11)
[2018-09-22 02:58] LABS: BASOPHILS % (AUTO) 0 % (0-1); EOSINOPHILS # (AUTO) 0.3 X10'3 (0-0.9); EOSINOPHILS % (AUTO) 0.8 % (0-6); HEMATOCRIT 31.7 % (35.0-45.0); HEMOGLOBIN 10.6 g/dl (12.0-16.0); LYMPHOCYTES # (AUTO) 2.2 X10'3 (1.1-4.8); LYMPHOCYTES % (AUTO) 6.8 % (21-51); MEAN CORPUSCULAR HEMOGLOBIN 30.1 PG (27.0-31.0); MEAN CORPUSCULAR HGB CONC 33.5 % (33.0-36.5); MEAN CORPUSCULAR VOLUME 89.9 FL (78-98); MEAN PLATELET VOLUME 6.6 FL (7.4-10.4); NEUTROPHILS # (AUTO) 28.3 X10'3 (1.8-7.7); NEUTROPHILS % (AUTO) 86.4 % (42-75); PLATELET COUNT 180 X10'3 (140-440); RED BLOOD COUNT 3.52 X10'6 (4.20-5.60); RED CELL DISTRIBUTION WIDTH 13.8 % (11.5-14.5)
[2018-09-22 03:04] LABS: WHITE BLOOD COUNT 32.7 X10'3 (4.5-11.0)
[2018-09-22 03:10] LABS: ALANINE AMINOTRANSFERASE 23 U/L (12-78); ALBUMIN 1.7 G/DL (3.4-5.0); ALBUMIN/GLOBULIN RATIO 0.4 (1.1-1.5); ALKALINE PHOSPHATASE 137 IU/L (46-116); ANION GAP 12 (8-16); ASPARTATE AMINO TRANSFERASE 37 U/L (10-37); BILIRUBIN,TOTAL 0.3 MG/DL (0.1-1.0); BLOOD UREA NITROGEN 37 MG/DL (7-18); BUN/CREATININE RATIO 14.3 (6.6-38.0); CALCIUM 7.3 MG/DL (8.5-10.1); CHLORIDE 103 MMOL/L (99-107); CREATININE 2.59 MG/DL (0.40-0.90); GLUCOSE 62 MG/DL (70-104); MAGNESIUM 1.5 MG/DL (1.5-2.4); PHOSPHORUS 2.6 MG/DL (2.3-4.5); POTASSIUM 3.7 MMOL/L (3.5-5.1); PREALBUMIN 26.4 MG/DL (19-36); SODIUM 139 MMOL/L (135-145); TOTAL CARBON DIOXIDE 24.1 MMOL/L (24-32); TOTAL PROTEIN 5.6 G/DL (6.4-8.2); eGFR 19 ML/MIN
[2018-09-22 03:23] LABS: INR 1.1 INR; PARTIAL THROMBOPLASTIN TIME 24 SECONDS (22-32); PROTHROMBIN TIME 10.9 SECONDS (9.0-12.0)
[2018-09-22 03:28] LABS: TOTAL CELLS COUNTED 100
[2018-09-22 03:29] LABS: PLATELET ESTIMATE NORMAL; POLYCHROMASIA FEW
[2018-09-22] MEDS: hydrALAZINE 20mg/ml inj. IV PRN ×2 (06:09→21:12)
--- NOTE | 2018-09-22 06:27 | NUR ---
Problems reprioritized. Patient report given, questions answered & plan of care reviewed with Estefani COSTA.
--- NOTE | 2018-09-22 06:44 | NUR ---
Late entry 0015 pt answering yes and no to questions appropriately 0200 pt communicating with full sentences and making needs known. 0500 pt aware to self, place and year.
--- NOTE | 2018-09-22 07:15 | NUR ---
Pt just extubated last night, order for ST eval placed for bedside swallow.
[2018-09-22] MEDS: insulin glargine (Lantus) pen - multi-dose SQ SCH ×2 (08:00→22:27)
[2018-09-22] MEDS: famotidine/PF 10 mg/ml inj IV SCH ×2 (08:11→20:58)
[2018-09-22] MEDS: K, MAG and/or Phos replacement - Verify level? MC SCH (08:20)
--- NOTE | 2018-09-22 08:36 | NUR ---
Pt awake and alert this morning, speech is a little slow but clear and mostly oriented. Answers questions appropriately as well as asking questions regarding her condition. She states, "I almost killed myself". In follow up conversation she states she did not intentionally mean to hurt herself but was "just having too much fun partying and drinking alcohol". States it was just a few days, Denies daily etoh use, Denies drug use. Educated regarding her condition and questions answered. States "I guess now I am facing the consequences". Pt presents as remorseful about the events that led up to her condition. Will obtain oncology social work order for lifestyle and support.
--- NOTE | 2018-09-22 09:40 | NUR ---
Extended PIV inserted to the right upper arm basilic vein x 1 attempt using ultrasound. Tracey well Addendum: 09/22/18 at 0941 by Ale Garcia RN Amended: Links added.
[2018-09-22] MEDS: dexmedetomidin/NS 400mcg/100ml 100 ML IV SCH (12:49)
--- NOTE | 2018-09-22 13:43 | NUR ---
reassessment: Pt has been extubated admits bad decision and was "partying too hard" per RN. Started on MVI/thiamin/folic for etoh and advanced to carb controlled/renal diet per MD. Will monitor appropriateness for ed s/p extubation; will need additional high protein reinforcement given wounds. Buttock wound worsening per RN; surgeon to be consulted. Lantus dose lowered off TF and had low in AM per MD. Rec: 1. continue carb controlled/renal diet 2. MVI/thiamin/folic for wounds/etoh 3. monitor for ONS needs 4. once appropriate; DM/^protein eds Addendum: 09/22/18 at [address] Amended: Links added.
[2018-09-22] MEDS: thiamine 100mg tablet PO SCH (15:21)
[2018-09-22] MEDS: folic acid 1mg tablet PO SCH (15:21)
[2018-09-22] MEDS: multivitamins, therapeutics tablet PO SCH (15:22)
[2018-09-22] MEDS ORDERED: morphine 4 MG/ML inj SYRINge IV PRN (15:55)
--- NOTE | 2018-09-22 16:00 | NUR ---
Central line to right neck discontinued without difficulty. Site without bleeding or hematoma, or s/s of infection of the catheter or the insertion site.
[2018-09-22] MEDS ORDERED: vancomycin/NS 1 GM ADD-VANTAGE 250 ML IV ONE (17:05)
--- NOTE | 2018-09-22 17:18 | NUR ---
Spoke with patient's jo ann Jaime, he will call when he returns home with patient's list of home medications.
--- NOTE | 2018-09-22 17:48 | NUR ---
Dr Pan ordering CT abd [facility]; asked him also to see patient again per request of Dr. Abarca.
--- NOTE | 2018-09-22 18:30 | NUR ---
Patient in room ICU 2041. I have received report from Estefani COSTA and had the opportunity to ask questions and assume patient care.
--- NOTE | 2018-09-22 20:45 | NUR ---
Pt seen by Dr. Pan. Pt informed of need to clean wound on buttock, will more than likely be occurring on Saturday09/24/18.
[2018-09-22] MEDS: heparin, porcine 5000 units/ml vial SQ SCH (20:59)
[2018-09-22] MEDS: piperacillin-tazo 2.25gm/50ml 50 ML IV SCH (21:00)
[2018-09-22] MEDS ORDERED: HYDR12.5 PO (21:34)
[2018-09-22] MEDS ORDERED: METF500T7 PO (21:34)
[2018-09-22] MEDS ORDERED: GLIP10TA11 PO (21:34)
[2018-09-22] MEDS ORDERED: LISI-600 PO (21:34)
[2018-09-22] MEDS ORDERED: GABA600T13 PO (21:34)
[2018-09-22] MEDS ORDERED: ATOR20TA66 PO (21:34)
[2018-09-22] MEDS: insulin Lispro (HumaLOG) vial - multi-dose SQ SCH (22:26)
--- NOTE | 2018-09-22 23:53 | NUR ---
Problems reprioritized. Patient report given, questions answered & plan of care reviewed with Mike COSTA.
[2018-09-23] VITALS (24 sets, daily range): BP systolic 84–159; BP diastolic 49–81
--- NOTE | 2018-09-23 | NUR ---
Patient in room ICU 2041. I have received report from Tom COSTA and had the opportunity to ask questions and assume patient care.
[2018-09-23] MEDS: hydrocortisone sod succ/PF 100mg/2ml inj. IV SCH ×4 (01:33→20:27)
[2018-09-23] MEDS: piperacillin-tazo 2.25gm/50ml 50 ML IV SCH ×4 (01:33→20:29)
[2018-09-23] MEDS: normal saline 1000ml 1,000 ML IV SCH (01:34)
--- NOTE | 2018-09-23 03:00 | NUR ---
Art line DC'ed at this time per MD order. pt tolerated well. no complications. continue to monitor
[2018-09-23 03:36] LABS: BASOPHILS % (AUTO) 0 % (0-1); EOSINOPHILS # (AUTO) 0.5 X10'3 (0-0.9); EOSINOPHILS % (AUTO) 1.5 % (0-6); HEMATOCRIT 32.8 % (35.0-45.0); HEMOGLOBIN 10.9 g/dl (12.0-16.0); LYMPHOCYTES # (AUTO) 2.1 X10'3 (1.1-4.8); LYMPHOCYTES % (AUTO) 7.1 % (21-51); MEAN CORPUSCULAR HEMOGLOBIN 30.3 PG (27.0-31.0); MEAN CORPUSCULAR HGB CONC 33.3 % (33.0-36.5); MEAN PLATELET VOLUME 6.6 FL (7.4-10.4); MONOCYTES # (AUTO) 0.8 X10'3 (0-0.9); MONOCYTES % (AUTO) 2.7 % (2-12); NEUTROPHILS # (AUTO) 26.9 X10'3 (1.8-7.7); NEUTROPHILS % (AUTO) 88.7 % (42-75); PLATELET COUNT 230 X10'3 (140-440); RED BLOOD COUNT 3.61 X10'6 (4.20-5.60)
[2018-09-23 03:45] LABS: WHITE BLOOD COUNT 30.4 X10'3 (4.5-11.0)
[2018-09-23 03:48] LABS: INR 1.1 INR; PARTIAL THROMBOPLASTIN TIME 25 SECONDS (22-32); PROTHROMBIN TIME 11.4 SECONDS (9.0-12.0)
[2018-09-23 04:00] LABS: ALANINE AMINOTRANSFERASE 25 U/L (12-78); ALBUMIN 1.8 G/DL (3.4-5.0); ALBUMIN/GLOBULIN RATIO 0.5 (1.1-1.5); ALKALINE PHOSPHATASE 133 IU/L (46-116); ANION GAP 13 (8-16); ASPARTATE AMINO TRANSFERASE 34 U/L (10-37); BILIRUBIN,TOTAL 0.4 MG/DL (0.1-1.0); BLOOD UREA NITROGEN 48 MG/DL (7-18); BUN/CREATININE RATIO 14.2 (6.6-38.0); CALCIUM 7.4 MG/DL (8.5-10.1); CHLORIDE 102 MMOL/L (99-107); CREATININE 3.39 MG/DL (0.40-0.90); GLUCOSE 125 MG/DL (70-104); MAGNESIUM 1.8 MG/DL (1.5-2.4); PHOSPHORUS 4.6 MG/DL (2.3-4.5); POTASSIUM 4.5 MMOL/L (3.5-5.1); SODIUM 137 MMOL/L (135-145); TOTAL PROTEIN 5.7 G/DL (6.4-8.2); eGFR 14 ML/MIN
[2018-09-23 05:07] LABS: PLATELET ESTIMATE NORMAL; POLYCHROMASIA FEW; TOTAL CELLS COUNTED 100; TOXIC GRANULATION 2+
--- NOTE | 2018-09-23 06:36 | NUR ---
Problems reprioritized. Patient report given, questions answered & plan of care reviewed with Day shift RN.
[2018-09-23] MEDS: famotidine/PF 10 mg/ml inj IV SCH ×2 (07:44→20:27)
[2018-09-23] MEDS: folic acid 1mg tablet PO SCH (07:46)
[2018-09-23] MEDS: thiamine 100mg tablet PO SCH (07:46)
[2018-09-23] MEDS: multivitamins, therapeutics tablet PO SCH (07:46)
[2018-09-23] MEDS: heparin, porcine 5000 units/ml vial SQ SCH ×2 (07:46→20:28)
[2018-09-23] MEDS: K, MAG and/or Phos replacement - Verify level? MC SCH (07:58)
[2018-09-23] MEDS ORDERED: heparin 1,000unit/ml 10ml vial 10 ML IV ONE (08:36)
[2018-09-23] MEDS ORDERED: albumin (human) 25% 100ml IV 100 ML IV PRN (08:40)
[2018-09-23] MEDS ORDERED: epoetin 20,000 units/ml inj IV ONE (08:40)
[2018-09-23] MEDS ORDERED: heparin 1,000 units/ml 10ml inj IV ONE (08:40)
[2018-09-23] MEDS ORDERED: heparin 1,000 units/ml 10ml inj HE ONE ×2 (08:40)
[2018-09-23 11:51] LABS: LIPASE 97 U/L (73-393)
[2018-09-23] MEDS: lactose-reduced food (Ensure High Protein) 237ml bottle PO SCH ×2 (13:00→18:30)
[2018-09-23] MEDS: vancomycin inj 1,250 MG in normal saline 250ml IV soln 250 ML IV SCH (17:42)
[2018-09-23] MEDS: insulin glargine (Lantus) pen - multi-dose SQ SCH (21:10)
--- NOTE | 2018-09-23 22:00 | NUR ---
Problems reprioritized. Patient report given, questions answered & plan of care reviewed with Asha Crespo RN.
--- NOTE | 2018-09-23 22:15 | NUR ---
patient transferred to [facility] at this time. receiving RN present.
--- NOTE | 2018-09-23 22:23 | NUR ---
pt transfererd from ICU to room 5652F. pt has been oriented to the room. vss. received report from immanuel Mckeon prior to pt's arrival.
[2018-09-24] MEDS: piperacillin-tazo 2.25gm/50ml 50 ML IV SCH ×4 (01:19→20:16)
[2018-09-24] MEDS: hydrocortisone sod succ/PF 100mg/2ml inj. IV SCH ×4 (01:19→20:30)
[2018-09-24] MEDS ORDERED: vancomycin/NS 1 GM ADD-VANTAGE 250 ML IV SCH (05:00)
[2018-09-24 06:00] VITALS: BP 166/77
--- NOTE | 2018-09-24 06:20 | NUR ---
Patient in room ORTHO 4023. I have received report from Asha COSTA and had the opportunity to ask questions and assume patient care. Patient in bed resting, opened her eye when I waked in the room. Appears comfortable. I will continue to monitor
[2018-09-24 06:21] LABS: BASOPHILS % (AUTO) 0 % (0-1); EOSINOPHILS # (AUTO) 0.3 X10'3 (0-0.9); EOSINOPHILS % (AUTO) 1.5 % (0-6); HEMATOCRIT 30.5 % (35.0-45.0); HEMOGLOBIN 10.2 g/dl (12.0-16.0); LYMPHOCYTES # (AUTO) 1.2 X10'3 (1.1-4.8); LYMPHOCYTES % (AUTO) 6.5 % (21-51); MEAN CORPUSCULAR HEMOGLOBIN 30.5 PG (27.0-31.0); MEAN CORPUSCULAR HGB CONC 33.5 % (33.0-36.5); MEAN CORPUSCULAR VOLUME 91.2 FL (78-98); MEAN PLATELET VOLUME 6.7 FL (7.4-10.4); MONOCYTES # (AUTO) 0.4 X10'3 (0-0.9); NEUTROPHILS # (AUTO) 17.4 X10'3 (1.8-7.7); PLATELET COUNT 153 X10'3 (140-440); RED BLOOD COUNT 3.34 X10'6 (4.20-5.60); WHITE BLOOD COUNT 19.3 X10'3 (4.5-11.0)
[2018-09-24 06:32] LABS: ALANINE AMINOTRANSFERASE 27 U/L (12-78); ALBUMIN/GLOBULIN RATIO 0.6 (1.1-1.5); ALKALINE PHOSPHATASE 149 IU/L (46-116); ANION GAP 14 (8-16); ASPARTATE AMINO TRANSFERASE 34 U/L (10-37); BILIRUBIN,TOTAL 0.4 MG/DL (0.1-1.0); BLOOD UREA NITROGEN 38 MG/DL (7-18); BUN/CREATININE RATIO 12.8 (6.6-38.0); CALCIUM 6.9 MG/DL (8.5-10.1); CHLORIDE 100 MMOL/L (99-107); CREATININE 2.96 MG/DL (0.40-0.90); GLUCOSE 164 MG/DL (70-104); MAGNESIUM 1.8 MG/DL (1.5-2.4); PHOSPHORUS 4.8 MG/DL (2.3-4.5); POTASSIUM 4.2 MMOL/L (3.5-5.1); SODIUM 137 MMOL/L (135-145); TOTAL CARBON DIOXIDE 23.3 MMOL/L (24-32); TOTAL PROTEIN 5.4 G/DL (6.4-8.2); eGFR 16 ML/MIN
[2018-09-24 06:33] LABS: INR 1.1 INR; PROTHROMBIN TIME 11.4 SECONDS (9.0-12.0)
[2018-09-24 06:34] LABS: PARTIAL THROMBOPLASTIN TIME 25 SECONDS (22-32)
--- NOTE | 2018-09-24 06:41 | NUR ---
RECEIVED REPORT FROM IGOR Wells. CHECKED ON PT AND INTRODUCED SELF.
--- NOTE | 2018-09-24 06:43 | NUR ---
Problems reprioritized. Patient report given, questions answered & plan of care reviewed with IGOR LEMON.
[2018-09-24] MEDS: lactose-reduced food (Ensure High Protein) 237ml bottle PO SCH ×3 (08:00→18:00)
[2018-09-24] MEDS: heparin, porcine 5000 units/ml vial SQ SCH ×2 (08:00→20:30)
[2018-09-24] MEDS: multivitamins, therapeutics tablet PO SCH (08:00)
[2018-09-24] MEDS: thiamine 100mg tablet PO SCH (08:00)
[2018-09-24] MEDS: folic acid 1mg tablet PO SCH (08:00)
[2018-09-24] MEDS: K, MAG and/or Phos replacement - Verify level? MC SCH (08:00)
[2018-09-24] MEDS: famotidine/PF 10 mg/ml inj IV SCH ×2 (08:17→20:22)
[2018-09-24 09:51] VITALS: BP 153/81
[2018-09-24 12:41] VITALS: BP 139/70
[2018-09-24] MEDS: insulin Lispro (HumaLOG) vial - multi-dose SQ SCH (12:44)
[2018-09-24 14:19] VITALS: BP 139/70
[2018-09-24 16:09] LABS: CREATINE KINASE 49 U/L (26-192)
--- NOTE | 2018-09-24 17:38 | NUR ---
CALLED AND GAVE REPORT TO SERGEI COSTA IN RECOVERY.
[2018-09-24] MEDS: vancomycin inj 1,250 MG in normal saline 250ml IV soln 250 ML IV SCH (17:55)
[2018-09-24 18:30] VITALS: BP 143/70
--- NOTE | 2018-09-24 18:31 | NUR ---
Problems reprioritized. Patient report given, MELISSA COSTA questions answered & plan of care reviewed with .
--- NOTE | 2018-09-24 18:54 | NUR ---
Patient in room ORTHO 4023. I have received report from Shalini COSTA and had the opportunity to ask questions and assume patient care.
[2018-09-24] MEDS ORDERED: ringers solution, lacted 1,000 ML IV SCH (20:04)
[2018-09-24] MEDS ORDERED: fentaNYL/PF 50MCG/1 ML 2ML syringe IV PRN ×2 (20:05)
[2018-09-24] MEDS ORDERED: ondansetron/PF 4mg/2ml inj IV PRN (20:05)
[2018-09-24] MEDS ORDERED: morphine 4 MG/ML inj SYRINge IV PRN ×2 (20:05)
[2018-09-24] MEDS ORDERED: enalaprilat dihydrate 2.5mg/2ml vial IV PRN (20:05)
[2018-09-24] MEDS ORDERED: labetalol 20mg/4ml (5mg/ml) syringe IV PRN (20:05)
--- NOTE | 2018-09-24 20:29 | NUR ---
Gave report to Shane COSTA in recovery. Patient leaving floor for surgery
[2018-09-24] MEDS: lactobacillus rhamnosus 10,000 MMU CELLS/CAPSULE PO SCH (20:30)
--- NOTE | 2018-09-24 21:20 | NUR ---
Patient returned to floor from OR. Patient refused surgery.
[2018-09-24] MEDS: insulin glargine (Lantus) pen - multi-dose SQ SCH (21:50)
[2018-09-24 22:00] VITALS: BP 140/64
[2018-09-25] MEDS: hydrocortisone sod succ/PF 100mg/2ml inj. IV SCH ×4 (01:44→19:42)
[2018-09-25] MEDS: normal saline 1000ml 1,000 ML IV SCH (01:45)
[2018-09-25] MEDS: piperacillin-tazo 2.25gm/50ml 50 ML IV SCH ×4 (01:46→19:47)
[2018-09-25 06:00] VITALS: BP 154/79
--- NOTE | 2018-09-25 06:20 | NUR ---
Patient in room ORTHO 4023. I have received report from MELISSA COSTA and had the opportunity to ask questions and assume patient care.
--- NOTE | 2018-09-25 06:36 | NUR ---
Problems reprioritized. Patient report given, questions answered & plan of care reviewed with Lashae COSTA.
[2018-09-25] MEDS ORDERED: epoetin 20,000 units/ml inj IV ONE (08:00)
[2018-09-25] MEDS ORDERED: heparin 1,000unit/ml 10ml vial 10 ML IV ONE (08:00)
[2018-09-25] MEDS ORDERED: albumin (human) 25% 100ml IV 100 ML IV PRN (08:00)
[2018-09-25] MEDS: K, MAG and/or Phos replacement - Verify level? MC SCH (08:00)
[2018-09-25] MEDS ORDERED: heparin 1,000 units/ml 10ml inj IV ONE (08:00)
[2018-09-25] MEDS ORDERED: heparin 1,000 units/ml 10ml inj HE ONE ×2 (08:00)
[2018-09-25 08:03] LABS: BASOPHILS % (AUTO) 0 % (0-1); EOSINOPHILS # (AUTO) 0.2 X10'3 (0-0.9); EOSINOPHILS % (AUTO) 1.3 % (0-6); HEMATOCRIT 31.8 % (35.0-45.0); HEMOGLOBIN 10.6 g/dl (12.0-16.0); LYMPHOCYTES # (AUTO) 1.4 X10'3 (1.1-4.8); LYMPHOCYTES % (AUTO) 7.5 % (21-51); MEAN CORPUSCULAR HEMOGLOBIN 30.5 PG (27.0-31.0); MEAN CORPUSCULAR HGB CONC 33.4 % (33.0-36.5); MEAN CORPUSCULAR VOLUME 91.3 FL (78-98); MEAN PLATELET VOLUME 6.4 FL (7.4-10.4); MONOCYTES # (AUTO) 0.4 X10'3 (0-0.9); MONOCYTES % (AUTO) 2.2 % (2-12); NEUTROPHILS # (AUTO) 16.4 X10'3 (1.8-7.7); PLATELET COUNT 136 X10'3 (140-440); RED BLOOD COUNT 3.49 X10'6 (4.20-5.60); RED CELL DISTRIBUTION WIDTH 14.2 % (11.5-14.5); WHITE BLOOD COUNT 18.4 X10'3 (4.5-11.0)
[2018-09-25 08:18] LABS: ALANINE AMINOTRANSFERASE 29 U/L (12-78); ALBUMIN/GLOBULIN RATIO 0.6 (1.1-1.5); ALKALINE PHOSPHATASE 163 IU/L (46-116); ANION GAP 21 (8-16); ASPARTATE AMINO TRANSFERASE 29 U/L (10-37); BILIRUBIN,TOTAL 0.5 MG/DL (0.1-1.0); BLOOD UREA NITROGEN 56 MG/DL (7-18); BUN/CREATININE RATIO 14.9 (6.6-38.0); CALCIUM 7.3 MG/DL (8.5-10.1); CHLORIDE 97 MMOL/L (99-107); CREATININE 3.76 MG/DL (0.40-0.90); GLUCOSE 223 MG/DL (70-104); PHOSPHORUS 6.5 MG/DL (2.3-4.5); POTASSIUM 4.6 MMOL/L (3.5-5.1); PREALBUMIN 22.6 MG/DL (19-36); SODIUM 136 MMOL/L (135-145); TOTAL CARBON DIOXIDE 17.6 MMOL/L (24-32); TOTAL PROTEIN 5.5 G/DL (6.4-8.2); eGFR 12 ML/MIN
[2018-09-25] MEDS: famotidine/PF 10 mg/ml inj IV SCH (08:23)
[2018-09-25] MEDS: folic acid 1mg tablet PO SCH (08:24)
[2018-09-25] MEDS: lactobacillus rhamnosus 10,000 MMU CELLS/CAPSULE PO SCH ×2 (08:24→19:42)
[2018-09-25] MEDS: multivitamins, therapeutics tablet PO SCH (08:24)
[2018-09-25] MEDS: thiamine 100mg tablet PO SCH (08:24)
[2018-09-25] MEDS: lactose-reduced food (Ensure High Protein) 237ml bottle PO SCH ×3 (08:25→18:00)
[2018-09-25] MEDS: heparin, porcine 5000 units/ml vial SQ SCH ×2 (08:25→19:42)
[2018-09-25] MEDS: insulin Lispro (HumaLOG) vial - multi-dose SQ SCH ×4 (09:00→21:24)
[2018-09-25 09:01] LABS: INR 1.1 INR; PARTIAL THROMBOPLASTIN TIME 21 SECONDS (22-32); PROTHROMBIN TIME 10.8 SECONDS (9.0-12.0)
[2018-09-25 10:00] VITALS: BP 146/71
--- NOTE | 2018-09-25 14:33 | NUR ---
reassessment: Pt PO increased to 25-50% meals w/ 75% ONS. Pt refused surgery last night w/ AOx2. IOANA d/w RN regarding Phos binder per MD approval since on HD w/ Phos 6.5. Folic/MVI/thiamin for etoh. LBM 09/25. Will continue to monitor. Rec: 1. continue carb controlled/renal diet 2. MVI/thiamin/folic for wounds/etoh 3. Phos-binder per MD 4. once appropriate; DM/^protein eds Addendum: 09/25/18 at [address] Amended: Links added.
[2018-09-25] MEDS ORDERED: VANCOMYCIN LEVEL IV NR (17:30)
[2018-09-25] MEDS: vancomycin inj 1,250 MG in normal saline 250ml IV soln 250 ML IV SCH (17:33)
--- NOTE | 2018-09-25 17:50 | NUR ---
2 PAGES TO KAYCEE TO LET HIM KNOW THE PATIENT HAS NOW DECIDED SHE WANTS SURGERY. ONE MISSED CALL FROM HIM AND NO RESPONSE ON THE 2ND CALL.
[2018-09-25 18:00] VITALS: BP 139/63
--- NOTE | 2018-09-25 18:05 | NUR ---
Problems reprioritized. Patient report given, questions answered & plan of care reviewed with MELISSA COSTA.
--- NOTE | 2018-09-25 18:24 | NUR ---
Patient in room ORTHO 4023. I have received report from Lashae COSTA and had the opportunity to ask questions and assume patient care.
[2018-09-25] MEDS ORDERED: insulin glargine (Lantus) pen - multi-dose SQ ONE (21:25)
[2018-09-25 22:00] VITALS: BP 134/65
[2018-09-26] MEDS: hydrocortisone sod succ/PF 100mg/2ml inj. IV SCH ×4 (02:16→20:03)
[2018-09-26] MEDS: piperacillin-tazo 2.25gm/50ml 50 ML IV SCH ×4 (02:18→20:01)
[2018-09-26 06:00] VITALS: BP 147/69
[2018-09-26 06:07] LABS: BASOPHILS % (AUTO) 0 % (0-1); EOSINOPHILS # (AUTO) 0.1 X10'3 (0-0.9); EOSINOPHILS % (AUTO) 1.5 % (0-6); HEMATOCRIT 27.7 % (35.0-45.0); HEMOGLOBIN 9.3 g/dl (12.0-16.0); LYMPHOCYTES # (AUTO) 0.9 X10'3 (1.1-4.8); LYMPHOCYTES % (AUTO) 9.2 % (21-51); MEAN CORPUSCULAR HEMOGLOBIN 30.6 PG (27.0-31.0); MEAN CORPUSCULAR HGB CONC 33.6 % (33.0-36.5); MEAN CORPUSCULAR VOLUME 91.2 FL (78-98); MEAN PLATELET VOLUME 6.3 FL (7.4-10.4); MONOCYTES # (AUTO) 0.2 X10'3 (0-0.9); MONOCYTES % (AUTO) 2.4 % (2-12); NEUTROPHILS # (AUTO) 8.1 X10'3 (1.8-7.7); NEUTROPHILS % (AUTO) 86.9 % (42-75); PLATELET COUNT 116 X10'3 (140-440); RED BLOOD COUNT 3.03 X10'6 (4.20-5.60); RED CELL DISTRIBUTION WIDTH 13.8 % (11.5-14.5); WHITE BLOOD COUNT 9.4 X10'3 (4.5-11.0)
--- NOTE | 2018-09-26 06:12 | NUR ---
Patient in room ORTHO 4023. I have received report from MELISSA COSTA and had the opportunity to ask questions and assume patient care.
--- NOTE | 2018-09-26 06:25 | NUR ---
Problems reprioritized. Patient report given, questions answered & plan of care reviewed with Lashae COSTA.
[2018-09-26 06:40] LABS: INR 1.1 INR; PARTIAL THROMBOPLASTIN TIME 25 SECONDS (22-32); PROTHROMBIN TIME 11.2 SECONDS (9.0-12.0)
[2018-09-26 06:50] LABS: ALANINE AMINOTRANSFERASE 22 U/L (12-78); ALBUMIN/GLOBULIN RATIO 0.7 (1.1-1.5); ALKALINE PHOSPHATASE 113 IU/L (46-116); ANION GAP 13 (8-16); ASPARTATE AMINO TRANSFERASE 15 U/L (10-37); BILIRUBIN,TOTAL 0.4 MG/DL (0.1-1.0); BLOOD UREA NITROGEN 44 MG/DL (7-18); BUN/CREATININE RATIO 13.4 (6.6-38.0); CALCIUM 7.5 MG/DL (8.5-10.1); CHLORIDE 101 MMOL/L (99-107); CREATININE 3.29 MG/DL (0.40-0.90); GLUCOSE 182 MG/DL (70-104); MAGNESIUM 1.8 MG/DL (1.5-2.4); POTASSIUM 3.7 MMOL/L (3.5-5.1); SODIUM 138 MMOL/L (135-145); TOTAL CARBON DIOXIDE 24.4 MMOL/L (24-32); eGFR 14 ML/MIN
[2018-09-26] MEDS: multivitamins, therapeutics tablet PO SCH (07:38)
[2018-09-26] MEDS: folic acid 1mg tablet PO SCH (07:38)
[2018-09-26] MEDS: heparin, porcine 5000 units/ml vial SQ SCH ×2 (07:38→20:05)
[2018-09-26] MEDS: lactobacillus rhamnosus 10,000 MMU CELLS/CAPSULE PO SCH ×2 (07:38→20:03)
[2018-09-26] MEDS: thiamine 100mg tablet PO SCH (07:38)
[2018-09-26] MEDS ORDERED: normal saline 1000ml 250 ML IV PRN (08:00)
[2018-09-26] MEDS ORDERED: LIDOcaine 1% (10mg/ml) 2ml vial SQ ONE (08:00)
[2018-09-26] MEDS ORDERED: epoetin 20,000 units/ml inj IV ONE (08:00)
[2018-09-26] MEDS: K, MAG and/or Phos replacement - Verify level? MC SCH (08:00)
[2018-09-26] MEDS ORDERED: heparin 1,000unit/ml 10ml vial 10 ML IV ONE (08:00)
[2018-09-26] MEDS: lactose-reduced food (Ensure High Protein) 237ml bottle PO SCH ×3 (08:00→18:00)
[2018-09-26] MEDS: insulin Lispro (HumaLOG) vial - multi-dose SQ SCH ×3 (09:05→20:13)
[2018-09-26 10:00] VITALS: BP 144/67
--- NOTE | 2018-09-26 11:00 | NUR ---
SPOKE WITH DR BENOIT, INFORMED HIM THAT THE PATIENT WANTS TO HAVE THE PROCEDURE NOW. HE SAID HE WILL COME SEE HERE.
[2018-09-26] MEDS ORDERED: heparin 1,000 units/ml 10ml inj HE ONE ×2 (15:50)
[2018-09-26] MEDS ORDERED: VANCOMYCIN LEVEL IV ONE (17:30)
[2018-09-26 18:00] VITALS: BP 106/64
[2018-09-26] MEDS: vancomycin inj 1,250 MG in normal saline 250ml IV soln 250 ML IV SCH (18:00)
--- NOTE | 2018-09-26 18:00 | NUR ---
Problems reprioritized. Patient report given, questions answered & plan of care reviewed with MELISSA COSTA.
--- NOTE | 2018-09-26 18:32 | NUR ---
Patient in room ORTHO 4023. I have received report from Lashae COSTA and had the opportunity to ask questions and assume patient care.
--- NOTE | 2018-09-26 19:20 | NUR ---
Patient finishing up dialysis. Patient has not yet ate dinner so unable to cover with insulin yet.
[2018-09-26] MEDS: VANCOMYCIN 750MG IV in NS 250 ML IV SCH (20:37)
[2018-09-26] MEDS: insulin glargine (Lantus) pen - multi-dose SQ SCH (21:53)
[2018-09-26 22:00] VITALS: BP 140/84
[2018-09-27] MEDS: hydrocortisone sod succ/PF 100mg/2ml inj. IV SCH ×3 (01:26→16:54)
[2018-09-27] MEDS: normal saline 1000ml 1,000 ML IV SCH (01:26)
[2018-09-27] MEDS: piperacillin-tazo 2.25gm/50ml 50 ML IV SCH ×4 (01:26→19:48)
[2018-09-27 06:00] VITALS: BP 148/70
--- NOTE | 2018-09-27 06:10 | NUR ---
Patient in room ORTHO 4023. I have received report from MELISSA COSTA and had the opportunity to ask questions and assume patient care.
--- NOTE | 2018-09-27 06:11 | NUR ---
Problems reprioritized. Patient report given, questions answered & plan of care reviewed with Lashae COSTA.
[2018-09-27 06:25] LABS: PROTHROMBIN TIME 11.1 SECONDS (9.0-12.0)
[2018-09-27 06:26] LABS: INR 1.1 INR; PARTIAL THROMBOPLASTIN TIME 24 SECONDS (22-32)
[2018-09-27 06:29] LABS: ALANINE AMINOTRANSFERASE 21 U/L (12-78); ALBUMIN/GLOBULIN RATIO 0.6 (1.1-1.5); ALKALINE PHOSPHATASE 113 IU/L (46-116); ANION GAP 10 (8-16); ASPARTATE AMINO TRANSFERASE 16 U/L (10-37); BASOPHILS % (AUTO) 0 % (0-1); BILIRUBIN,TOTAL 0.5 MG/DL (0.1-1.0); BLOOD UREA NITROGEN 33 MG/DL (7-18); BUN/CREATININE RATIO 11.3 (6.6-38.0); CALCIUM 7.3 MG/DL (8.5-10.1); CHLORIDE 101 MMOL/L (99-107); CREATININE 2.91 MG/DL (0.40-0.90); EOSINOPHILS # (AUTO) 0.1 X10'3 (0-0.9); EOSINOPHILS % (AUTO) 0.9 % (0-6); GLUCOSE 156 MG/DL (70-104); HEMATOCRIT 29.8 % (35.0-45.0); LYMPHOCYTES # (AUTO) 0.8 X10'3 (1.1-4.8); LYMPHOCYTES % (AUTO) 7.3 % (21-51); MAGNESIUM 1.8 MG/DL (1.5-2.4); MEAN CORPUSCULAR HEMOGLOBIN 30.6 PG (27.0-31.0); MEAN CORPUSCULAR HGB CONC 33.6 % (33.0-36.5); MEAN CORPUSCULAR VOLUME 91.2 FL (78-98); MEAN PLATELET VOLUME 6.4 FL (7.4-10.4); MONOCYTES # (AUTO) 0.2 X10'3 (0-0.9); NEUTROPHILS # (AUTO) 9.5 X10'3 (1.8-7.7); NEUTROPHILS % (AUTO) 89.8 % (42-75); PHOSPHORUS 4.2 MG/DL (2.3-4.5); PLATELET COUNT 100 X10'3 (140-440); POTASSIUM 3.8 MMOL/L (3.5-5.1); RED BLOOD COUNT 3.26 X10'6 (4.20-5.60); RED CELL DISTRIBUTION WIDTH 13.6 % (11.5-14.5); SODIUM 138 MMOL/L (135-145); TOTAL CARBON DIOXIDE 27.5 MMOL/L (24-32); TOTAL PROTEIN 5.3 G/DL (6.4-8.2); WHITE BLOOD COUNT 10.6 X10'3 (4.5-11.0); eGFR 16 ML/MIN
[2018-09-27] MEDS: K, MAG and/or Phos replacement - Verify level? MC SCH (07:24)
[2018-09-27] MEDS: heparin, porcine 5000 units/ml vial SQ SCH ×2 (07:28→19:48)
[2018-09-27] MEDS: thiamine 100mg tablet PO SCH (07:28)
[2018-09-27] MEDS: folic acid 1mg tablet PO SCH (07:28)
[2018-09-27] MEDS: lactobacillus rhamnosus 10,000 MMU CELLS/CAPSULE PO SCH ×2 (07:28→19:47)
[2018-09-27] MEDS: multivitamins, therapeutics tablet PO SCH (07:28)
[2018-09-27] MEDS ORDERED: heparin 1,000unit/ml 10ml vial 10 ML IV ONE (08:00)
[2018-09-27] MEDS ORDERED: heparin 1,000 units/ml 10ml inj HE ONE ×2 (08:00)
[2018-09-27] MEDS: lactose-reduced food (Ensure High Protein) 237ml bottle PO SCH ×2 (08:00→18:00)
[2018-09-27] MEDS ORDERED: normal saline 1000ml 250 ML IV PRN (08:00)
[2018-09-27] MEDS ORDERED: LIDOcaine 1% (10mg/ml) 2ml vial SQ ONE (08:00)
[2018-09-27] MEDS ORDERED: epoetin 20,000 units/ml inj IV ONE (08:00)
[2018-09-27] MEDS: insulin Lispro (HumaLOG) vial - multi-dose SQ SCH ×3 (09:14→19:42)
[2018-09-27 10:00] VITALS: BP 142/70
[2018-09-27 18:00] VITALS: BP 145/70
--- NOTE | 2018-09-27 18:22 | NUR ---
Spoke with Dr Ybarra this morning re: the face that pt had been dialyzed yeaterday and the day before. querried him tonight to findout if he's ok with not performing dialysis today and putting it off until Saturday. Dr Ybarra confirmed he's ok to wait.
--- NOTE | 2018-09-27 18:25 | NUR ---
Problems reprioritized. Patient report given, questions answered & plan of care reviewed with MORENO Zuniga RN.
--- NOTE | 2018-09-27 18:47 | NUR ---
PATIENT REPORT RECEIVED FROM RIMA COSTA.
[2018-09-27] MEDS: VANCOMYCIN 750MG IV in NS 250 ML IV SCH (20:31)
[2018-09-27 22:00] VITALS: BP 143/69
[2018-09-27] MEDS: insulin glargine (Lantus) pen - multi-dose SQ SCH (22:03)
[2018-09-28] VITALS (11 sets, daily range): BP systolic 123–140; BP diastolic 65–76
[2018-09-28] MEDS: hydrocortisone sod succ/PF 100mg/2ml inj. IV SCH ×3 (00:18→15:14)
--- NOTE | 2018-09-28 01:52 | NUR ---
Nursing supervisor refining called and said that Dr. Pan is going to take patient to surgery around 11am, so I made her npo now. I will tell her nurse when I see her.
[2018-09-28] MEDS: piperacillin-tazo 2.25gm/50ml 50 ML IV SCH ×4 (02:24→21:30)
--- NOTE | 2018-09-28 06:26 | NUR ---
PATIENT REPORT GIVEN TO TATUM COSTA.
[2018-09-28] MEDS: thiamine 100mg tablet PO SCH (08:00)
[2018-09-28] MEDS: lactose-reduced food (Ensure High Protein) 237ml bottle PO SCH ×3 (08:00→18:09)
[2018-09-28] MEDS: folic acid 1mg tablet PO SCH (08:00)
[2018-09-28] MEDS: multivitamins, therapeutics tablet PO SCH (08:00)
[2018-09-28] MEDS: lactobacillus rhamnosus 10,000 MMU CELLS/CAPSULE PO SCH ×2 (08:00→20:19)
[2018-09-28] MEDS: heparin, porcine 5000 units/ml vial SQ SCH ×2 (08:00→20:00)
[2018-09-28] MEDS: K, MAG and/or Phos replacement - Verify level? MC SCH (09:03)
[2018-09-28 10:38] LABS: BASOPHILS % (AUTO) 0.2 % (0-1); EOSINOPHILS # (AUTO) 0.1 X10'3 (0-0.9); EOSINOPHILS % (AUTO) 0.5 % (0-6); HEMOGLOBIN 11.4 g/dl (12.0-16.0); LYMPHOCYTES # (AUTO) 2.3 X10'3 (1.1-4.8); LYMPHOCYTES % (AUTO) 18.1 % (21-51); MEAN CORPUSCULAR HEMOGLOBIN 30.7 PG (27.0-31.0); MEAN CORPUSCULAR HGB CONC 33.5 % (33.0-36.5); MEAN CORPUSCULAR VOLUME 91.5 FL (78-98); MEAN PLATELET VOLUME 6.3 FL (7.4-10.4); MONOCYTES # (AUTO) 0.6 X10'3 (0-0.9); MONOCYTES % (AUTO) 5.1 % (2-12); NEUTROPHILS # (AUTO) 9.5 X10'3 (1.8-7.7); NEUTROPHILS % (AUTO) 76.1 % (42-75); PLATELET COUNT 112 X10'3 (140-440); RED BLOOD COUNT 3.72 X10'6 (4.20-5.60); WHITE BLOOD COUNT 12.4 X10'3 (4.5-11.0)
[2018-09-28 10:48] LABS: PRE OP PROTIME 10.6 SECONDS (9.0-12.0)
[2018-09-28 10:50] LABS: ALANINE AMINOTRANSFERASE 29 U/L (12-78); ALBUMIN 2.2 G/DL (3.4-5.0); ALBUMIN/GLOBULIN RATIO 0.6 (1.1-1.5); ALKALINE PHOSPHATASE 126 IU/L (46-116); ANION GAP 15 (8-16); ASPARTATE AMINO TRANSFERASE 22 U/L (10-37); BILIRUBIN,TOTAL 0.6 MG/DL (0.1-1.0); BLOOD UREA NITROGEN 52 MG/DL (7-18); BUN/CREATININE RATIO 13.6 (6.6-38.0); CALCIUM 7.5 MG/DL (8.5-10.1); CHLORIDE 99 MMOL/L (99-107); CREATININE 3.82 MG/DL (0.40-0.90); GLUCOSE 159 MG/DL (70-104); POTASSIUM 3.6 MMOL/L (3.5-5.1); SODIUM 138 MMOL/L (135-145); TOTAL CARBON DIOXIDE 23.8 MMOL/L (24-32); TOTAL PROTEIN 5.8 G/DL (6.4-8.2); eGFR 12 ML/MIN
--- NOTE | 2018-09-28 11:45 | NUR ---
PT LEFT FLOOR TO SX WITH OR PUPIL PERSONNEL WORKER
[2018-09-28] MEDS ORDERED: sevoflurane 250ml liquid IH ONE (11:51)
[2018-09-28] MEDS ORDERED: ringers solution, lacted 1,000 ML IV SCH (11:51)
[2018-09-28] MEDS ORDERED: proCHLORperazine 10 MG/2 ml inj IV PRN (11:55)
[2018-09-28] MEDS ORDERED: meperidine/PF 25mg/ml syringe IV PRN ×3 (11:55)
[2018-09-28] MEDS ORDERED: ondansetron/PF 4mg/2ml inj IV PRN (11:55)
[2018-09-28] MEDS ORDERED: morphine 4 MG/ML inj SYRINge IV PRN ×2 (11:55)
[2018-09-28] MEDS ORDERED: propofol inj 20 ML IV ONE (11:56)
[2018-09-28] MEDS ORDERED: fentaNYL/PF 50MCG/1 ML 2ML syringe ONE (11:56)
[2018-09-28] MEDS ORDERED: ePHEDrine 50MG/ML INJ. ONE (12:53)
--- NOTE | 2018-09-28 13:15 | NUR ---
Received from OR via , accompanied by DR. ZHONG, Anesthesiologist and report given by Anesthesiolgist. S/P I&D OF PERIRECTAL ABSCESS PER DR. BENOIT. PT. DROWSY, OPENS EYES TO NAME. RESPS. EVEN & UNLABORED. RT. UPPER ARM IV PATENT. DAMASO RECTAL BANDAGE W/ PACKING FROM OR IN PLACE. PT SHAKES HEAD NO TO PAIN @ THIS TIME. REASSURED.
--- NOTE | 2018-09-28 13:50 | NUR ---
MEDICATED FOR PAIN. TAKING ICE CHIPS WITHOUT UPSET. REASSURED.
--- NOTE | 2018-09-28 14:35 | NUR ---
Report called to receiving nurse, TATUM COSTA @ BEDSIDE.. Transferred via BED. Belongings IN PT. ROOM. PT. A X O X 4. APPROP. RESPS. EVEN & UNLABORED. RT. ARM PICC LINE INTACT. RT. UPPER CHEST TUNNEL CATHETER SECURE/INTACT. PT. STATES RELIEF OF PAIN W/ MEDS. REASSURED. NO OBVIOUS DRAINAGE FROM BUTTOCK DRSG NOTED @ THIS TIME. . Special Issues communicated to receiving nurse.
--- NOTE | 2018-09-28 18:30 | NUR ---
Patient in room ORTHO 4023. I have received report from IGOR WINN and had the opportunity to ask questions and assume patient care.
[2018-09-28] MEDS: insulin Lispro (HumaLOG) vial - multi-dose SQ SCH (19:01)
--- NOTE | 2018-09-28 19:09 | NUR ---
IV GOT POULLED ACCIDENTALLY. SHE HAS 1900 DOSE OF ABX. HER FAMILY JUST CAME TO VISIT. ILL PLACE NEW IV WHEN FAMILY LEAVES.
[2018-09-28] MEDS: VANCOMYCIN 750MG IV in NS 250 ML IV SCH (20:12)
[2018-09-28] MEDS: insulin glargine (Lantus) pen - multi-dose SQ SCH (21:30)
[2018-09-28] MEDS: normal saline 1000ml 1,000 ML IV SCH (22:25)
[2018-09-29] MEDS: hydrocortisone sod succ/PF 100mg/2ml inj. IV SCH ×2 (00:19→20:29)
[2018-09-29 02:00] VITALS: BP 127/67
[2018-09-29] MEDS: piperacillin-tazo 2.25gm/50ml 50 ML IV SCH ×4 (02:47→20:26)
[2018-09-29] MEDS: HYDROcodone/acetaminophen 10/325mg tab PO PRN (03:16)
--- NOTE | 2018-09-29 03:33 | NUR ---
CHANGED DRESSING WET TO DRY. PACKED WITH KERLIX. THERE IS ABOUT 1 IN X 1 IN BLOOD CLOT, AND A COUPLE SMALLER CLOTS. ALSO THERE IS BROWN SOLID LOOKS TO BE FECES ABOUT 2.5 IN X .5 IN. MODERATE AMOUNT OF SANGUINEOUS DRAINAGE CAME OUT WHEN DRESSING WAS PULLED OUT.
[2018-09-29 06:00] VITALS: BP 117/59
--- NOTE | 2018-09-29 06:15 | NUR ---
Patient in room ORTHO 4023. I have received report from Asha and had the opportunity to ask questions and assume patient care.
--- NOTE | 2018-09-29 06:20 | NUR ---
Problems reprioritized. Patient report given, questions answered & plan of care reviewed with IGOR PATEL.
[2018-09-29] MEDS: lactose-reduced food (Ensure High Protein) 237ml bottle PO SCH ×3 (08:00→19:45)
[2018-09-29] MEDS: K, MAG and/or Phos replacement - Verify level? MC SCH (08:00)
[2018-09-29] MEDS: heparin, porcine 5000 units/ml vial SQ SCH ×2 (08:00→20:25)
[2018-09-29] MEDS: folic acid 1mg tablet PO SCH (08:10)
[2018-09-29] MEDS: lactobacillus rhamnosus 10,000 MMU CELLS/CAPSULE PO SCH ×2 (08:10→20:25)
[2018-09-29] MEDS: multivitamins, therapeutics tablet PO SCH (08:10)
[2018-09-29] MEDS: thiamine 100mg tablet PO SCH (08:10)
[2018-09-29] MEDS ORDERED: POTASSIUM 40MEQ/500ML NS *****PERIPHERAL LINE REPLACE IV PRN (09:20)
[2018-09-29] MEDS ORDERED: potassium Cl 20 mEq SR tablet PO PRN ×2 (09:20)
[2018-09-29] MEDS ORDERED: heparin 1,000unit/ml 10ml vial 10 ML IV ONE ×2 (09:41→09:48)
[2018-09-29] MEDS ORDERED: normal saline 1000ml 250 ML IV PRN ×2 (09:41→09:48)
[2018-09-29] MEDS ORDERED: heparin 1,000 units/ml 10ml inj HE ONE (09:45)
[2018-09-29] MEDS ORDERED: epoetin 20,000 units/ml inj IV ONE (09:50)
[2018-09-29 10:00] VITALS: BP 121/57
[2018-09-29 10:20] LABS: ALANINE AMINOTRANSFERASE 31 U/L (12-78); ALBUMIN/GLOBULIN RATIO 0.6 (1.1-1.5); ALKALINE PHOSPHATASE 118 IU/L (46-116); ANION GAP 13 (8-16); ASPARTATE AMINO TRANSFERASE 23 U/L (10-37); BILIRUBIN,TOTAL 0.6 MG/DL (0.1-1.0); BLOOD UREA NITROGEN 55 MG/DL (7-18); BUN/CREATININE RATIO 13.1 (6.6-38.0); CALCIUM 7.7 MG/DL (8.5-10.1); CHLORIDE 100 MMOL/L (99-107); CREATININE 4.21 MG/DL (0.40-0.90); GLUCOSE 100 MG/DL (70-104); POTASSIUM 3.8 MMOL/L (3.5-5.1); PREALBUMIN 22.1 MG/DL (19-36); SODIUM 137 MMOL/L (135-145); TOTAL PROTEIN 5.5 G/DL (6.4-8.2); eGFR 11 ML/MIN
--- NOTE | 2018-09-29 10:40 | NUR ---
Reassessment: Pt s/p wound debridement yesterday. Previously NPO for OR however diet has just been advanced to CHO controlled mech soft. Documented intake prior to debridement averaged 50-70% with average 50% intake of Ensure High Protein, likely meeting nutrient needs to aid in wound healing. Pending new documentation of PO intake with diet advancement. Per physical assessment pt with lft labia 2+ edema, BUE 1+ edema, BLE 2+ edema, lft leg 3+ edema, and lft arm 3+ edema. Patient's Phos now WNL at 4.2 on 09/27, will continue to monitor. Rec: 1. continue carb controlled/mech soft/thin liquid diet 2. MVI/thiamin/folic for wounds/etoh 3. Phos-binder per MD 4. once appropriate; DM/^protein eds Addendum: 09/29/18 at [address] Amended: Links added.
[2018-09-29] MEDS: insulin Lispro (HumaLOG) vial - multi-dose SQ SCH ×2 (13:47→20:35)
--- NOTE | 2018-09-29 14:00 | NUR ---
Pt is receiving dialysis, unable to administer abx.
[2018-09-29] MEDS: heparin 1,000 units/ml 10ml inj HE ONE ×2 (15:30→18:44)
[2018-09-29 18:00] VITALS: BP 105/60
--- NOTE | 2018-09-29 18:24 | NUR ---
Problems reprioritized. Patient report given, questions answered & plan of care reviewed with Amalia Brown
[2018-09-29] MEDS ORDERED: VANCOMYCIN LEVEL IV NR (18:30)
[2018-09-29] MEDS: VANCOMYCIN 750MG IV in NS 250 ML IV SCH (19:00)
--- NOTE | 2018-09-29 19:16 | NUR ---
Received critical lab value: Vanco trough 24.1. CAROLINA Edward notified with new orders to hold tonight's dose and order random vanco for 09/30 at 1830 prior to next dose.
[2018-09-29] MEDS: insulin glargine (Lantus) pen - multi-dose SQ SCH (21:47)
[2018-09-29 22:00] VITALS: BP 105/52
[2018-09-30] MEDS: piperacillin-tazo 2.25gm/50ml 50 ML IV SCH ×4 (02:12→20:13)
[2018-09-30 06:00] VITALS: BP 136/72
--- NOTE | 2018-09-30 06:24 | NUR ---
Report given to Aris COSTA.
--- NOTE | 2018-09-30 06:39 | NUR ---
Patient in room ORTHO 4023. I have received report from Amalia Richards RN and had the opportunity to ask questions and assume patient care.
[2018-09-30] MEDS: K, MAG and/or Phos replacement - Verify level? MC SCH (07:35)
[2018-09-30] MEDS: folic acid 1mg tablet PO SCH (07:42)
[2018-09-30] MEDS: thiamine 100mg tablet PO SCH (07:42)
[2018-09-30] MEDS: lactobacillus rhamnosus 10,000 MMU CELLS/CAPSULE PO SCH ×2 (07:42→20:14)
[2018-09-30] MEDS: multivitamins, therapeutics tablet PO SCH (07:42)
[2018-09-30] MEDS: hydrocortisone sod succ/PF 100mg/2ml inj. IV SCH ×2 (07:45→20:13)
[2018-09-30] MEDS ORDERED: K and/or MAG REPLACEMENT MC SCH (08:00)
[2018-09-30] MEDS: lactose-reduced food (Ensure High Protein) 237ml bottle PO SCH ×3 (08:00→18:00)
[2018-09-30] MEDS: HYDROcodone/acetaminophen 10/325mg tab PO PRN ×2 (08:06→22:25)
--- NOTE | 2018-09-30 09:30 | NUR ---
Patient didn't receive insulin for morning blood sugar of 120 and did not eat her breakfast
[2018-09-30] MEDS: heparin, porcine 5000 units/ml vial SQ SCH ×2 (10:08→20:13)
[2018-09-30 10:31] VITALS: BP 141/70
[2018-09-30 11:17] LABS: ALANINE AMINOTRANSFERASE 29 U/L (12-78); ALBUMIN 1.8 G/DL (3.4-5.0); ALBUMIN/GLOBULIN RATIO 0.5 (1.1-1.5); ALKALINE PHOSPHATASE 113 IU/L (46-116); ANION GAP 14 (8-16); ASPARTATE AMINO TRANSFERASE 23 U/L (10-37); BILIRUBIN,TOTAL 0.5 MG/DL (0.1-1.0); BLOOD UREA NITROGEN 36 MG/DL (7-18); BUN/CREATININE RATIO 10.3 (6.6-38.0); CALCIUM 7.5 MG/DL (8.5-10.1); CHLORIDE 100 MMOL/L (99-107); CREATININE 3.49 MG/DL (0.40-0.90); GLUCOSE 142 MG/DL (70-104); POTASSIUM 3.8 MMOL/L (3.5-5.1); SODIUM 138 MMOL/L (135-145); TOTAL CARBON DIOXIDE 24.1 MMOL/L (24-32); TOTAL PROTEIN 5.4 G/DL (6.4-8.2); eGFR 13 ML/MIN
[2018-09-30] MEDS ORDERED: vancomycin inj 1,250 MG in normal saline 250ml IV soln 250 ML IV PRN (12:50)
[2018-09-30] MEDS ORDERED: PEG 3350/Na sulf,bicarb,Cl/KCl oral sol 4 liter bottle PO ONE (13:50)
[2018-09-30] MEDS: insulin Lispro (HumaLOG) vial - multi-dose SQ SCH (13:56)
--- NOTE | 2018-09-30 17:59 | NUR ---
Problems reprioritized. Patient report given, questions answered & plan of care reviewed with Anna Zuniga RN.
[2018-09-30 18:00] VITALS: BP 138/61
--- NOTE | 2018-09-30 18:20 | NUR ---
PATIENT REPORT RECEIVED FROM ELVIS COSTA.
[2018-09-30] MEDS: insulin glargine (Lantus) pen - multi-dose SQ SCH (21:10)
[2018-09-30 22:00] VITALS: BP 144/71
[2018-10-01] VITALS (16 sets, daily range): BP systolic 112–152; BP diastolic 55–76
[2018-10-01] MEDS: piperacillin-tazo 2.25gm/50ml 50 ML IV SCH ×4 (02:19→22:04)
[2018-10-01] MEDS: VANCOMYCIN LEVEL IV SCH (03:00)
[2018-10-01] MEDS: normal saline 1000ml 1,000 ML IV SCH ×2 (04:54→18:57)
--- NOTE | 2018-10-01 06:31 | NUR ---
PATIENT REPORT GIVEN TO EVY COSTA.
--- NOTE | 2018-10-01 06:48 | NUR ---
RECEIVED REPORT FROM MORENO COSTA
[2018-10-01] MEDS: dextrose ORAL solution 15 GM/59 ML bottle PO PRN (07:40)
[2018-10-01] MEDS: hydrocortisone sod succ/PF 100mg/2ml inj. IV SCH (07:44)
[2018-10-01] MEDS ORDERED: heparin 1,000unit/ml 10ml vial 10 ML IV ONE (08:00)
[2018-10-01] MEDS: K, MAG and/or Phos replacement - Verify level? MC SCH (08:00)
[2018-10-01] MEDS ORDERED: normal saline 1000ml 250 ML IV PRN (08:00)
[2018-10-01] MEDS: multivitamins, therapeutics tablet PO SCH (08:00)
[2018-10-01] MEDS: folic acid 1mg tablet PO SCH (08:00)
[2018-10-01] MEDS: heparin, porcine 5000 units/ml vial SQ SCH ×2 (08:00→21:57)
[2018-10-01] MEDS: thiamine 100mg tablet PO SCH (08:00)
[2018-10-01] MEDS: lactobacillus rhamnosus 10,000 MMU CELLS/CAPSULE PO SCH ×2 (08:00→20:00)
[2018-10-01] MEDS ORDERED: heparin 1,000 units/ml 10ml inj HE ONE ×2 (08:00)
[2018-10-01] MEDS: lactose-reduced food (Ensure High Protein) 237ml bottle PO SCH ×3 (08:00→18:00)
[2018-10-01] MEDS ORDERED: albumin (human) 25% 100ml IV 100 ML IV PRN (08:00)
[2018-10-01] MEDS ORDERED: epoetin 20,000 units/ml inj IV ONE (08:00)
[2018-10-01 09:09] LABS: HEMATOCRIT 28.3 % (35.0-45.0); HEMOGLOBIN 9.5 g/dl (12.0-16.0); MEAN CORPUSCULAR HEMOGLOBIN 30.7 PG (27.0-31.0); MEAN CORPUSCULAR HGB CONC 33.4 % (33.0-36.5); MEAN CORPUSCULAR VOLUME 91.9 FL (78-98); MEAN PLATELET VOLUME 6.7 FL (7.4-10.4); PLATELET COUNT 75 X10'3 (140-440); RED BLOOD COUNT 3.08 X10'6 (4.20-5.60); WHITE BLOOD COUNT 9.8 X10'3 (4.5-11.0)
[2018-10-01 11:08] LABS: BASOPHILS % (AUTO) 0.3 % (0-1); EOSINOPHILS % (AUTO) 0.1 % (0-6); HEMATOCRIT 24.2 % (35.0-45.0); HEMOGLOBIN 8.2 g/dl (12.0-16.0); LYMPHOCYTES # (AUTO) 0.8 X10'3 (1.1-4.8); LYMPHOCYTES % (AUTO) 12.7 % (21-51); MEAN CORPUSCULAR HEMOGLOBIN 30.8 PG (27.0-31.0); MEAN CORPUSCULAR HGB CONC 33.6 % (33.0-36.5); MEAN CORPUSCULAR VOLUME 91.5 FL (78-98); MEAN PLATELET VOLUME 6.3 FL (7.4-10.4); MONOCYTES # (AUTO) 0.3 X10'3 (0-0.9); MONOCYTES % (AUTO) 3.9 % (2-12); NEUTROPHILS # (AUTO) 5.5 X10'3 (1.8-7.7); PLATELET COUNT 58 X10'3 (140-440); RED BLOOD COUNT 2.65 X10'6 (4.20-5.60); RED CELL DISTRIBUTION WIDTH 14.6 % (11.5-14.5); WHITE BLOOD COUNT 6.6 X10'3 (4.5-11.0)
[2018-10-01 11:22] LABS: ALANINE AMINOTRANSFERASE 26 U/L (12-78); ALBUMIN 1.7 G/DL (3.4-5.0); ALBUMIN/GLOBULIN RATIO 0.5 (1.1-1.5); ALKALINE PHOSPHATASE 104 IU/L (46-116); ANION GAP 13 (8-16); ASPARTATE AMINO TRANSFERASE 21 U/L (10-37); BILIRUBIN,TOTAL 0.4 MG/DL (0.1-1.0); BLOOD UREA NITROGEN 37 MG/DL (7-18); BUN/CREATININE RATIO 10.3 (6.6-38.0); CALCIUM 7.5 MG/DL (8.5-10.1); CHLORIDE 101 MMOL/L (99-107); CREATININE 3.58 MG/DL (0.40-0.90); GLUCOSE 101 MG/DL (70-104); POTASSIUM 3.5 MMOL/L (3.5-5.1); SODIUM 139 MMOL/L (135-145); TOTAL CARBON DIOXIDE 25.4 MMOL/L (24-32); eGFR 13 ML/MIN
[2018-10-01 11:34] LABS: PARTIAL THROMBOPLASTIN TIME 27 SECONDS (22-32); PROTHROMBIN TIME 10.1 SECONDS (9.0-12.0)
[2018-10-01] MEDS ORDERED: LIDOcaine 1% 30ml preserv. free vial ONE (14:03)
[2018-10-01] MEDS ORDERED: LIDOcaine 0.5% W/epiNEPHrine 1:200,000 50ml vial IJ ONE (14:03)
[2018-10-01] MEDS ORDERED: BUPIVAcaine/PF 2.5mg/ml (0.25%) 10ml vial ONE (14:04)
[2018-10-01] MEDS ORDERED: ROPIVAcaine 0.5% (5mg/ml) 30ml vial ONE (14:04)
[2018-10-01] MEDS ORDERED: epiNEPHrine 1 mg/ml inj ONE (14:05)
[2018-10-01] MEDS ORDERED: ringers solution, lacted 1,000 ML IV SCH (14:28)
[2018-10-01] MEDS ORDERED: proCHLORperazine 10 MG/2 ml inj IV PRN (14:30)
[2018-10-01] MEDS ORDERED: ondansetron/PF 4mg/2ml inj IV PRN (14:30)
[2018-10-01] MEDS ORDERED: meperidine/PF 25mg/ml syringe IV PRN (14:30)
[2018-10-01] MEDS ORDERED: morphine 4 MG/ML inj SYRINge IV PRN ×2 (14:30)
[2018-10-01] MEDS ORDERED: fentaNYL/PF 50MCG/1 ML 2ML syringe ONE ×2 (14:37→16:24)
[2018-10-01] MEDS ORDERED: midazolam 2 mg/2 ml injection ONE (14:37)
[2018-10-01] MEDS ORDERED: desflurane 240ml liquid inh. IH ONE (14:38)
[2018-10-01] MEDS ORDERED: rocuronium 10mg/ml inj IV ONE (14:38)
[2018-10-01] MEDS ORDERED: propofol inj 20 ML IV ONE (14:38)
[2018-10-01] MEDS ORDERED: LIDOcaine 1%/PF 5ML 10 MG/ML VIAL ONE (14:38)
[2018-10-01] MEDS ORDERED: albumin (Human) 5% 250ml 250 ML IV ONE ×2 (15:32→15:52)
--- NOTE | 2018-10-01 17:06 | NUR ---
ARRIVED IN PACU VIA BED FROM OR WITH O2 ON AND DR LIM IN ATTENDANCE. REPORT RECEIVED. VS STABLE. NO C/O PAIN. ABD ISLAND DRG SATURATED AND BLOOD DRIPPING DOWN SIDE OF ABD. DR PATTERSON AT BEDSIDE TO SEE. BANDAGE REINFORCED AND SOME PRESSURE APPLIED X5MIN WITH DECREASE IN BLEEDING.
--- NOTE | 2018-10-01 17:25 | NUR ---
Patient in room [facility]. I have received report from EVY COSTA and had the opportunity to ask questions and assume patient care.
--- NOTE | 2018-10-01 17:35 | NUR ---
COMFORTABLY SLEEPING. VS STABLE NO FURTHER BLEEDING
--- NOTE | 2018-10-01 17:40 | NUR ---
Patient in room [facility]. I have received report from SILK OPENER and had the opportunity to ask questions and assume patient care.
--- NOTE | 2018-10-01 17:45 | NUR ---
report given to Edmar COSTA
--- NOTE | 2018-10-01 17:56 | NUR ---
ONLY C/O PAIN WHEN ASKED, THEN STATES IT TOLERABLE NOW. ABD DSG HAS BEEN CHANGED, NO FURTHER BLEEDING NOTED. DIALYSIS CATHETER PATENT R CHEST. TO 3SURG. JUANJO IN ROOM TO ACCEPT PT. VS STABLE ON ARRIVAL
--- NOTE | 2018-10-01 18:01 | NUR ---
RECEIVED PATIENT FROM [facility] A SHIFT REPORT STARTED DURING CHANGE OF SHIFT. PATIENT WAS TRANSFERRED FROM ORTHO BED TO STAR BED, PATIENT WAS MADE COMFORTABLE AT THIS TIME. PATIENT WAS INITIATED ON POST OP VITALS DURING THIS TIME WELL. PATIENT DOES NOT HAVE TRANSFER ORDER AT THIS TIME.;
--- NOTE | 2018-10-01 18:30 | NUR ---
Problems reprioritized. Patient report given, questions answered & plan of care reviewed with ROSETTA COSTA.
[2018-10-01] MEDS: HYDROcodone/acetaminophen 10/325mg tab PO PRN (21:54)
[2018-10-01] MEDS: insulin glargine (Lantus) pen - multi-dose SQ SCH (22:06)
[2018-10-02] VITALS: BP 117/60
[2018-10-02] MEDS: piperacillin-tazo 2.25gm/50ml 50 ML IV SCH (02:31)
[2018-10-02] MEDS: VANCOMYCIN LEVEL IV SCH (03:00)
--- NOTE | 2018-10-02 05:58 | NUR ---
unable to get daily weight, bed not zero'd. Ordered PT so weight can be obtained and bed can be zero'd.
[2018-10-02 06:06] LABS: ALANINE AMINOTRANSFERASE 21 U/L (12-78); ALBUMIN 1.8 G/DL (3.4-5.0); ALBUMIN/GLOBULIN RATIO 0.6 (1.1-1.5); ALKALINE PHOSPHATASE 74 IU/L (46-116); ANION GAP 11 (8-16); ASPARTATE AMINO TRANSFERASE 16 U/L (10-37); BILIRUBIN,TOTAL 0.5 MG/DL (0.1-1.0); BLOOD UREA NITROGEN 25 MG/DL (7-18); BUN/CREATININE RATIO 8.6 (6.6-38.0); CHLORIDE 105 MMOL/L (99-107); CREATININE 2.91 MG/DL (0.40-0.90); GLUCOSE 109 MG/DL (70-104); POTASSIUM 3.8 MMOL/L (3.5-5.1); SODIUM 142 MMOL/L (135-145); TOTAL CARBON DIOXIDE 25.8 MMOL/L (24-32); eGFR 16 ML/MIN
--- NOTE | 2018-10-02 06:48 | NUR ---
Patient in room [facility] 347. I have received report from Bren Valdovinos RN and had the opportunity to ask questions and assume patient care.
--- NOTE | 2018-10-02 06:48 | NUR ---
Problems reprioritized. Patient report given, questions answered & plan of care reviewed with IGOR Hyatt.
[2018-10-02 08:00] VITALS: BP 116/59
[2018-10-02] MEDS: K, MAG and/or Phos replacement - Verify level? MC SCH (08:00)
[2018-10-02] MEDS: lactose-reduced food (Ensure High Protein) 237ml bottle PO SCH ×3 (08:00→18:55)
[2018-10-02] MEDS: heparin, porcine 5000 units/ml vial SQ SCH ×2 (08:00→19:57)
[2018-10-02] MEDS: lactobacillus rhamnosus 10,000 MMU CELLS/CAPSULE PO SCH ×2 (10:39→19:11)
[2018-10-02] MEDS: folic acid 1mg tablet PO SCH (10:40)
[2018-10-02] MEDS: thiamine 100mg tablet PO SCH (10:40)
[2018-10-02] MEDS: multivitamins, therapeutics tablet PO SCH (10:40)
[2018-10-02] MEDS: HYDROcodone/acetaminophen 10/325mg tab PO PRN ×2 (10:49→21:04)
[2018-10-02 11:00] VITALS: BP 143/55
[2018-10-02] MEDS: insulin Lispro (HumaLOG) vial - multi-dose SQ SCH ×2 (14:10→19:09)
[2018-10-02 18:00] VITALS: BP 123/63
--- NOTE | 2018-10-02 19:28 | NUR ---
Problems reprioritized. Patient report given, questions answered & plan of care reviewed with ROSETTA Valdovinos RN.
[2018-10-02] MEDS: insulin glargine (Lantus) pen - multi-dose SQ SCH (21:03)
[2018-10-02] MEDS: normal saline 1000ml 1,000 ML IV SCH (22:25)
--- NOTE | 2018-10-02 22:25 | NUR ---
Problems reprioritized. Patient report given, questions answered & plan of care reviewed with IGOR Monique.
--- NOTE | 2018-10-02 22:25 | NUR ---
Patient in room [facility] 347. I have received report from Bren COSTA and had the opportunity to ask questions and assume patient care.
--- NOTE | 2018-10-02 23:00 | NUR ---
I have assessed patient and agree with previous assessment completed earlier in shift.
[2018-10-03] VITALS (10 sets, daily range): BP systolic 111–145; BP diastolic 54–78
[2018-10-03] MEDS: HYDROcodone/acetaminophen 10/325mg tab PO PRN ×2 (00:56→10:03)
[2018-10-03] MEDS: VANCOMYCIN LEVEL IV SCH (03:00)
--- NOTE | 2018-10-03 06:28 | NUR ---
Problems reprioritized. Patient report given, questions answered & plan of care reviewed with Ally COSTA.
--- NOTE | 2018-10-03 06:45 | NUR ---
Patient in room [facility] 347. I have received report from Eneida COSTA and had the opportunity to ask questions and assume patient care.
[2018-10-03] MEDS: K, MAG and/or Phos replacement - Verify level? MC SCH (07:32)
[2018-10-03] MEDS: multivitamins, therapeutics tablet PO SCH (07:36)
[2018-10-03] MEDS: lactobacillus rhamnosus 10,000 MMU CELLS/CAPSULE PO SCH ×2 (07:36→22:18)
[2018-10-03] MEDS: folic acid 1mg tablet PO SCH (07:37)
[2018-10-03] MEDS: thiamine 100mg tablet PO SCH (07:37)
[2018-10-03] MEDS: heparin, porcine 5000 units/ml vial SQ SCH ×2 (07:38→20:00)
[2018-10-03] MEDS: lactose-reduced food (Ensure High Protein) 237ml bottle PO SCH ×3 (08:31→22:19)
[2018-10-03] MEDS ORDERED: normal saline 1000ml 250 ML IV PRN (08:33)
[2018-10-03] MEDS ORDERED: epoetin 20,000 units/ml inj IV ONE ×2 (08:35→11:30)
--- NOTE | 2018-10-03 09:15 | NUR ---
Dr. Freitas called regarding pt unable to void after F/C removal, 495ml on bladder scan. MD stated try to get pt on commode and bladder scan in another 4hrs if still unable to void.
[2018-10-03] MEDS: insulin Lispro (HumaLOG) vial - multi-dose SQ SCH ×2 (09:27→13:55)
[2018-10-03 10:08] LABS: MEAN CORPUSCULAR HEMOGLOBIN 31.9 PG (27.0-31.0); MEAN CORPUSCULAR HGB CONC 34.2 % (33.0-36.5); MEAN CORPUSCULAR VOLUME 93.2 FL (78-98); MEAN PLATELET VOLUME 7.2 FL (7.4-10.4); PLATELET COUNT 59 X10'3 (140-440); RED BLOOD COUNT 2.14 X10'6 (4.20-5.60); RED CELL DISTRIBUTION WIDTH 15.5 % (11.5-14.5); WHITE BLOOD COUNT 7.7 X10'3 (4.5-11.0)
[2018-10-03 10:25] LABS: HEMATOCRIT 19.9 % (35.0-45.0); HEMOGLOBIN 6.8 g/dl (12.0-16.0)
[2018-10-03 10:28] LABS: ALANINE AMINOTRANSFERASE 21 U/L (12-78); ALBUMIN 1.7 G/DL (3.4-5.0); ALBUMIN/GLOBULIN RATIO 0.5 (1.1-1.5); ALKALINE PHOSPHATASE 92 IU/L (46-116); ANION GAP 12 (8-16); ASPARTATE AMINO TRANSFERASE 16 U/L (10-37); BILIRUBIN,TOTAL 0.4 MG/DL (0.1-1.0); BLOOD UREA NITROGEN 28 MG/DL (7-18); BUN/CREATININE RATIO 7.7 (6.6-38.0); CALCIUM 7.7 MG/DL (8.5-10.1); CHLORIDE 102 MMOL/L (99-107); CREATININE 3.64 MG/DL (0.40-0.90); GLUCOSE 177 MG/DL (70-104); POTASSIUM 3.7 MMOL/L (3.5-5.1); SODIUM 139 MMOL/L (135-145); TOTAL CARBON DIOXIDE 25.4 MMOL/L (24-32); TOTAL PROTEIN 5.3 G/DL (6.4-8.2); eGFR 13 ML/MIN
--- NOTE | 2018-10-03 13:18 | NUR ---
Informed Dr. Freitas of critical H&H of 6.8/19.9, plt 59, pt unable to void since F/C removal with 248ml on bladder scan, HR 105 & 110 today. ordered 2units PRBCs to be given by dialysis nurse, to receive heparin free dialysis, and straight cath if bladder scan over 600ml, bladder scan every 8hrs.
[2018-10-03] MEDS: heparin 1,000unit/ml 10ml vial 10 ML IV ONE ×2 (13:20→16:45)
[2018-10-03] MEDS: heparin 1,000 units/ml 10ml inj HE ONE ×4 (13:20→21:21)
--- NOTE | 2018-10-03 17:45 | NUR ---
Pt seen by IOANA for written/verbal DM/high protein ed. RD contact information provided. Pt s/p debridement of perineal wound w/ colostomy placement. PO 75-100% full liquids and tolerating. Pt declines additional proteins at this time and agrees to attend CDE course which IOANA encouraged. Gas from ostomy per RN pending diet advancement to renal/carb controlled/mechanical soft per MD approval. Pt will need colostomy ed prior to d/c. Will continue to monitor. Rec: 1. advance to carb controlled/mech soft/thin liquid diet 2. MVI/thiamin/folic for wounds/etoh 3. Phos-binder per MD 4. colostomy ed prior to d/c Addendum: 10/03/18 at [address] Amended: Links added.
[2018-10-03] MEDS: vancomycin inj 500 MG in normal saline 100ml IV soln 100 ML IV SCH ×2 (18:00→22:19)
--- NOTE | 2018-10-03 18:46 | NUR ---
Problems reprioritized. Patient report given, questions answered & plan of care reviewed with Kera COSTA.
--- NOTE | 2018-10-03 20:00 | NUR ---
Patient finished with HD. Vitals signs stable patient is waiting on her dinner tray.
[2018-10-03] MEDS: cefTAZidime inj 2 GM in normal saline 100ml IV soln 100 ML IV SCH (20:20)
--- NOTE | 2018-10-03 21:50 | NUR ---
Humalog not given to cover patient's blood sugar of 191 at 1700. . Patient is was getting HD. Patient blood sugar check before dinner tray given at 2030 BS 121. Will continue with care.
--- NOTE | 2018-10-03 21:56 | NUR ---
Vanco trough done at 2014 when patient completed her HD. level came back 13.6. Pharmacy to dose vanco level. Spoke with pharmacist shadi. ok to Give the 500mg of vanco that was schedule for this morning now.
[2018-10-03] MEDS: metroNIDAZOLE 500mg tablet PO SCH (22:18)
[2018-10-03] MEDS: insulin glargine (Lantus) pen - multi-dose SQ SCH (22:36)
[2018-10-04] VITALS: BP 137/76
[2018-10-04] MEDS: HYDROcodone/acetaminophen 10/325mg tab PO PRN ×2 (01:25→11:19)
[2018-10-04] MEDS: VANCOMYCIN LEVEL IV SCH (03:00)
[2018-10-04 05:20] LABS: HEMATOCRIT 26.9 % (35.0-45.0); HEMOGLOBIN 9.3 g/dl (12.0-16.0); MEAN CORPUSCULAR HEMOGLOBIN 31.5 PG (27.0-31.0); MEAN CORPUSCULAR HGB CONC 34.3 % (33.0-36.5); MEAN CORPUSCULAR VOLUME 91.9 FL (78-98); MEAN PLATELET VOLUME 7.2 FL (7.4-10.4); RED BLOOD COUNT 2.93 X10'6 (4.20-5.60); RED CELL DISTRIBUTION WIDTH 14.7 % (11.5-14.5)
[2018-10-04 05:23] LABS: PLATELET COUNT 44 X10'3 (140-440)
--- NOTE | 2018-10-04 06:30 | NUR ---
Patient in room [facility] 347. I have received report from Kera COSTA and had the opportunity to ask questions and assume patient care.
[2018-10-04 07:04] VITALS: BP 142/78
[2018-10-04] MEDS: metroNIDAZOLE 500mg tablet PO SCH ×2 (07:35→19:52)
[2018-10-04] MEDS: multivitamins, therapeutics tablet PO SCH (07:35)
[2018-10-04] MEDS: lactobacillus rhamnosus 10,000 MMU CELLS/CAPSULE PO SCH ×2 (07:35→19:52)
[2018-10-04] MEDS: thiamine 100mg tablet PO SCH (07:35)
[2018-10-04] MEDS: folic acid 1mg tablet PO SCH (07:35)
[2018-10-04] MEDS: K, MAG and/or Phos replacement - Verify level? MC SCH (07:36)
[2018-10-04] MEDS: lactose-reduced food (Ensure High Protein) 237ml bottle PO SCH ×3 (07:44→18:00)
--- NOTE | 2018-10-04 09:22 | NUR ---
Received phone call from family member stating that pt. wanted to leave AMA. Went to pt. to discuss as she had made no unsatisfactory comments about care today. Pt. described stressful day yesterday r/t roommate. Roommate is no longer in room, but pt. describes "not being able to sleep". Offered to reduce noise and dim lights to provide peaceful environment for rest. Gave pt. education on disease process and need to continue hospital stay for total wellness and recovery. Pt. states "I might stick around until Saturday then." Will cont. to monitor on my shift. Addendum: 10/04/18 at 0938 by Rebecca Gallardo RN Amended: Links added.
[2018-10-04] MEDS: insulin Lispro (HumaLOG) vial - multi-dose SQ SCH ×3 (09:49→19:50)
[2018-10-04] MEDS ORDERED: vancomycin/NS 1 GM ADD-VANTAGE 250 ML IV PRN (11:05)
[2018-10-04 11:18] VITALS: BP 133/67
--- NOTE | 2018-10-04 11:20 | NUR ---
NAOMY Santiago informed of critical plts of 44. No new orders at this time. Also informed about patient wanting to leave AMA earlier but pt decided to stay. Ale ordered social media marketing manager on patient.
--- NOTE | 2018-10-04 14:25 | NUR ---
Pt/SO seen by IOANA for written/verbal colostomy diet ed. Pts questions/concerns answered by RD and encouraged to contact RD if any further questions. Would like Glucerna strawberry TID in place of ensure high protein; IOANA d/w dietary. Pt seen by IOANA for written/verbal DM/high protein ed. RD contact information provided. Pt s/p debridement of perineal wound w/ colostomy placement. PO 75-100% full liquids and tolerating. Pt declines additional proteins at this time and agrees to attend CDE course which IOANA encouraged. Gas from ostomy per RN pending diet advancement to renal/carb controlled/mechanical soft per MD approval. Pt will need colostomy ed prior to d/c. Will continue to monitor. Rec: 1. advance to carb controlled/mech soft/thin liquid diet 2. MVI/thiamin/folic for wounds/etoh 3. Phos-binder per 4. strawberry Glucerna TIDWM 5. wt w/ HD Addendum: 10/04/18 at [address] Amended: Links added.
--- NOTE | 2018-10-04 18:48 | NUR ---
Problems reprioritized. Patient report given, questions answered & plan of care reviewed with Kera COSTA.
[2018-10-04 20:00] VITALS: BP 136/68
[2018-10-04] MEDS: insulin glargine (Lantus) pen - multi-dose SQ SCH (22:14)
[2018-10-04] MEDS: normal saline 1000ml 1,000 ML IV SCH (22:25)
[2018-10-05] VITALS: BP 146/76
[2018-10-05] MEDS: HYDROcodone/acetaminophen 10/325mg tab PO PRN (00:31)
[2018-10-05] MEDS: VANCOMYCIN LEVEL IV SCH (03:00)
[2018-10-05 05:19] LABS: BASOPHILS % (AUTO) 0.2 % (0-1); EOSINOPHILS % (AUTO) 0 % (0-6); HEMATOCRIT 27.7 % (35.0-45.0); HEMOGLOBIN 9.5 g/dl (12.0-16.0); LYMPHOCYTES # (AUTO) 1.9 X10'3 (1.1-4.8); LYMPHOCYTES % (AUTO) 26.6 % (21-51); MEAN CORPUSCULAR HGB CONC 34.5 % (33.0-36.5); MEAN CORPUSCULAR VOLUME 92.9 FL (78-98); MONOCYTES # (AUTO) 0.6 X10'3 (0-0.9); NEUTROPHILS # (AUTO) 4.6 X10'3 (1.8-7.7); NEUTROPHILS % (AUTO) 65.2 % (42-75); RED BLOOD COUNT 2.98 X10'6 (4.20-5.60); RED CELL DISTRIBUTION WIDTH 15.4 % (11.5-14.5); WHITE BLOOD COUNT 7.1 X10'3 (4.5-11.0)
[2018-10-05 05:23] LABS: PLATELET COUNT 41 X10'3 (140-440)
[2018-10-05 05:55] LABS: ALANINE AMINOTRANSFERASE 21 U/L (12-78); ALBUMIN 1.5 G/DL (3.4-5.0); ALBUMIN/GLOBULIN RATIO 0.4 (1.1-1.5); ALKALINE PHOSPHATASE 103 IU/L (46-116); ANION GAP 9 (8-16); ASPARTATE AMINO TRANSFERASE 17 U/L (10-37); BILIRUBIN,TOTAL 0.4 MG/DL (0.1-1.0); BLOOD UREA NITROGEN 25 MG/DL (7-18); BUN/CREATININE RATIO 7.6 (6.6-38.0); CALCIUM 7.9 MG/DL (8.5-10.1); CHLORIDE 103 MMOL/L (99-107); CREATININE 3.29 MG/DL (0.40-0.90); GLUCOSE 108 MG/DL (70-104); POTASSIUM 4.1 MMOL/L (3.5-5.1); SODIUM 139 MMOL/L (135-145); TOTAL CARBON DIOXIDE 26.6 MMOL/L (24-32); TOTAL PROTEIN 5.3 G/DL (6.4-8.2); eGFR 14 ML/MIN
[2018-10-05 07:00] VITALS: BP 134/69
[2018-10-05] MEDS: K, MAG and/or Phos replacement - Verify level? MC SCH (08:00)
[2018-10-05] MEDS: lactose-reduced food (Ensure High Protein) 237ml bottle PO SCH ×3 (08:00→18:44)
[2018-10-05] MEDS: metroNIDAZOLE 500mg tablet PO SCH ×2 (09:17→19:36)
[2018-10-05] MEDS: folic acid 1mg tablet PO SCH (09:17)
[2018-10-05] MEDS: lactobacillus rhamnosus 10,000 MMU CELLS/CAPSULE PO SCH ×2 (09:17→19:36)
[2018-10-05] MEDS: thiamine 100mg tablet PO SCH (09:17)
[2018-10-05] MEDS: multivitamins, therapeutics tablet PO SCH (09:18)
[2018-10-05] MEDS: insulin Lispro (HumaLOG) vial - multi-dose SQ SCH ×2 (09:30→14:11)
[2018-10-05 12:00] VITALS: BP 138/72
[2018-10-05 18:00] VITALS: BP 133/77
--- NOTE | 2018-10-05 18:30 | NUR ---
Patient in room [facility] 347. I have received report from Aimee COSTA and had the opportunity to ask questions and assume patient care.
[2018-10-05] MEDS: insulin glargine (Lantus) pen - multi-dose SQ SCH (21:06)
[2018-10-06] VITALS: BP 141/78
[2018-10-06] MEDS: VANCOMYCIN LEVEL IV SCH (03:00)
[2018-10-06] MEDS: HYDROcodone/acetaminophen 10/325mg tab PO PRN (04:28)
[2018-10-06 05:32] LABS: BASOPHILS % (AUTO) 0.2 % (0-1); EOSINOPHILS % (AUTO) 0.1 % (0-6); HEMATOCRIT 28.3 % (35.0-45.0); HEMOGLOBIN 9.7 g/dl (12.0-16.0); LYMPHOCYTES # (AUTO) 1.8 X10'3 (1.1-4.8); LYMPHOCYTES % (AUTO) 27.1 % (21-51); MEAN CORPUSCULAR HEMOGLOBIN 31.8 PG (27.0-31.0); MEAN CORPUSCULAR HGB CONC 34.3 % (33.0-36.5); MEAN CORPUSCULAR VOLUME 92.4 FL (78-98); MEAN PLATELET VOLUME 7.4 FL (7.4-10.4); MONOCYTES # (AUTO) 0.5 X10'3 (0-0.9); MONOCYTES % (AUTO) 7.4 % (2-12); NEUTROPHILS # (AUTO) 4.2 X10'3 (1.8-7.7); NEUTROPHILS % (AUTO) 65.2 % (42-75); RED BLOOD COUNT 3.06 X10'6 (4.20-5.60); WHITE BLOOD COUNT 6.5 X10'3 (4.5-11.0)
[2018-10-06 05:52] LABS: PLATELET COUNT 37 X10'3 (140-440)
[2018-10-06 06:04] LABS: ALANINE AMINOTRANSFERASE 19 U/L (12-78); ALBUMIN 1.5 G/DL (3.4-5.0); ALBUMIN/GLOBULIN RATIO 0.4 (1.1-1.5); ALKALINE PHOSPHATASE 117 IU/L (46-116); ANION GAP 13 (8-16); ASPARTATE AMINO TRANSFERASE 20 U/L (10-37); BILIRUBIN,TOTAL 0.6 MG/DL (0.1-1.0); BLOOD UREA NITROGEN 29 MG/DL (7-18); BUN/CREATININE RATIO 7.8 (6.6-38.0); CALCIUM 7.8 MG/DL (8.5-10.1); CHLORIDE 102 MMOL/L (99-107); CREATININE 3.73 MG/DL (0.40-0.90); GLUCOSE 95 MG/DL (70-104); SODIUM 139 MMOL/L (135-145); TOTAL CARBON DIOXIDE 24.5 MMOL/L (24-32); TOTAL PROTEIN 5.3 G/DL (6.4-8.2); VANCOMYCIN,RANDOM 20.6 UG/ML; eGFR 12 ML/MIN
--- NOTE | 2018-10-06 06:45 | NUR ---
Problems reprioritized. Patient report given, questions answered & plan of care reviewed with Elo COSTA.
[2018-10-06 07:35] VITALS: BP 136/73
[2018-10-06] MEDS: lactose-reduced food (Ensure High Protein) 237ml bottle PO SCH ×3 (08:00→18:00)
[2018-10-06] MEDS: K, MAG and/or Phos replacement - Verify level? MC SCH (08:00)
[2018-10-06] MEDS: cefTAZidime inj. 1 GM in normal saline 100ml IV soln 100 ML IV SCH (08:00)
[2018-10-06] MEDS: metroNIDAZOLE 500mg tablet PO SCH ×2 (08:10→19:50)
[2018-10-06] MEDS: multivitamins, therapeutics tablet PO SCH (08:10)
[2018-10-06] MEDS: lactobacillus rhamnosus 10,000 MMU CELLS/CAPSULE PO SCH ×2 (08:10→19:50)
[2018-10-06] MEDS: thiamine 100mg tablet PO SCH (08:10)
[2018-10-06] MEDS: folic acid 1mg tablet PO SCH (08:10)
[2018-10-06] MEDS: insulin Lispro (HumaLOG) vial - multi-dose SQ SCH ×2 (08:14→19:53)
--- NOTE | 2018-10-06 18:15 | NUR ---
DRESSING CHANGED PER MD ORDERS.
--- NOTE | 2018-10-06 18:43 | NUR ---
Problems reprioritized. Patient report given, questions answered & plan of care reviewed with IGOR Lentz.
--- NOTE | 2018-10-06 18:45 | NUR ---
Patient in room [facility] 347. I have received report from SCARLET COSTA and had the opportunity to ask questions and assume patient care. Addendum: 10/06/18 at 1845 by Mary Carmen Griffith RN Amended: Links added.
[2018-10-06 19:30] VITALS: BP 145/81
--- NOTE | 2018-10-06 21:00 | NUR ---
weight bed broken pt did not want to get up to stand on scale for weight feeling weak. Addendum: 10/07/18 at 0520 by Mary Carmen Griffith RN Amended: Links added.
[2018-10-06] MEDS: insulin glargine (Lantus) pen - multi-dose SQ SCH (21:47)
--- NOTE | 2018-10-06 22:30 | NUR ---
pt colostomy bag hung at this time.
--- NOTE | 2018-10-06 23:15 | NUR ---
pt bladder scan for 134cc urine in bladder.
[2018-10-07] VITALS (17 sets, daily range): BP systolic 103–156; BP diastolic 58–74
--- NOTE | 2018-10-07 00:09 | NUR ---
resting eyes closed without changes.
--- NOTE | 2018-10-07 01:53 | NUR ---
pt awake and periarea dressing needing changed. dressing removed and irrigated area with saline gently then wet to dry dressing applied with peripad then new mesh underpants to the area done for the pt. pt stated it felt better when exposed to air when dressing was out. pt tolerated procedure well. then positioned to comfort. stated she wanted to sleep now after the procedure.
--- NOTE | 2018-10-07 02:00 | NUR ---
saline tubing changed and labeled positioned to comfort. no complaints.
[2018-10-07] MEDS: normal saline 1000ml 1,000 ML IV SCH (02:12)
[2018-10-07] MEDS: VANCOMYCIN LEVEL IV SCH (03:00)
--- NOTE | 2018-10-07 05:02 | NUR ---
pt inc of urine skin care done and packing removed and wet to dry done with abd pad to the area. pt stated having less feeling on the urge to void and prefers to leave the mesh pants off now. pt on dry dry flows.
[2018-10-07 05:21] LABS: BASOPHILS % (AUTO) 0.1 % (0-1); EOSINOPHILS % (AUTO) 0 % (0-6); HEMATOCRIT 28.6 % (35.0-45.0); HEMOGLOBIN 9.9 g/dl (12.0-16.0); LYMPHOCYTES # (AUTO) 2.2 X10'3 (1.1-4.8); MEAN CORPUSCULAR HEMOGLOBIN 31.4 PG (27.0-31.0); MEAN CORPUSCULAR HGB CONC 34.5 % (33.0-36.5); MEAN CORPUSCULAR VOLUME 90.9 FL (78-98); MEAN PLATELET VOLUME 7.9 FL (7.4-10.4); MONOCYTES # (AUTO) 0.6 X10'3 (0-0.9); MONOCYTES % (AUTO) 8.3 % (2-12); NEUTROPHILS # (AUTO) 4.6 X10'3 (1.8-7.7); NEUTROPHILS % (AUTO) 62.6 % (42-75); RED BLOOD COUNT 3.15 X10'6 (4.20-5.60); RED CELL DISTRIBUTION WIDTH 15.8 % (11.5-14.5); WHITE BLOOD COUNT 7.4 X10'3 (4.5-11.0)
[2018-10-07 05:38] LABS: ALANINE AMINOTRANSFERASE 18 U/L (12-78); ALBUMIN 1.5 G/DL (3.4-5.0); ALBUMIN/GLOBULIN RATIO 0.4 (1.1-1.5); ALKALINE PHOSPHATASE 128 IU/L (46-116); ANION GAP 11 (8-16); ASPARTATE AMINO TRANSFERASE 19 U/L (10-37); BILIRUBIN,TOTAL 0.5 MG/DL (0.1-1.0); BLOOD UREA NITROGEN 35 MG/DL (7-18); BUN/CREATININE RATIO 8.1 (6.6-38.0); CALCIUM 7.6 MG/DL (8.5-10.1); CHLORIDE 104 MMOL/L (99-107); CREATININE 4.33 MG/DL (0.40-0.90); GLUCOSE 92 MG/DL (70-104); SODIUM 140 MMOL/L (135-145); TOTAL CARBON DIOXIDE 25.3 MMOL/L (24-32); TOTAL PROTEIN 5.3 G/DL (6.4-8.2); VANCOMYCIN,RANDOM 18.1 UG/ML; eGFR 10 ML/MIN
[2018-10-07 05:45] LABS: PLATELET COUNT 46 X10'3 (140-440)
--- NOTE | 2018-10-07 05:50 | NUR ---
October Paving Contractor notified of platelets up from 37 to 46 today.
--- NOTE | 2018-10-07 06:36 | NUR ---
Problems reprioritized. Patient report given, questions answered & plan of care reviewed with SCARLET COSTA. Addendum: 10/07/18 at 0636 by Mary Carmen Griffith RN Amended: Links added.
[2018-10-07] MEDS: lactobacillus rhamnosus 10,000 MMU CELLS/CAPSULE PO SCH ×2 (07:19→21:58)
[2018-10-07] MEDS: metroNIDAZOLE 500mg tablet PO SCH ×2 (07:19→21:58)
[2018-10-07] MEDS: thiamine 100mg tablet PO SCH (07:19)
[2018-10-07] MEDS: multivitamins, therapeutics tablet PO SCH (07:19)
[2018-10-07] MEDS: folic acid 1mg tablet PO SCH (07:19)
[2018-10-07] MEDS: K, MAG and/or Phos replacement - Verify level? MC SCH (07:19)
[2018-10-07] MEDS: lactose-reduced food (Ensure High Protein) 237ml bottle PO SCH ×3 (07:19→17:40)
[2018-10-07] MEDS ORDERED: ringers solution, lacted 1,000 ML IV SCH (09:37)
[2018-10-07] MEDS ORDERED: LIDOcaine 1%/PF 5ML 10 MG/ML VIAL ONE (09:38)
[2018-10-07] MEDS ORDERED: sevoflurane 250ml liquid IH ONE (09:38)
[2018-10-07] MEDS ORDERED: meperidine/PF 25mg/ml syringe IV PRN ×2 (09:40)
[2018-10-07] MEDS ORDERED: morphine 4 MG/ML inj SYRINge IV PRN ×2 (09:40)
[2018-10-07] MEDS ORDERED: proCHLORperazine 10 MG/2 ml inj IV PRN (09:40)
[2018-10-07] MEDS ORDERED: ondansetron/PF 4mg/2ml inj IV PRN (09:40)
[2018-10-07] MEDS ORDERED: propofol inj 20 ML IV ONE (09:45)
[2018-10-07] MEDS ORDERED: fentaNYL/PF 50MCG/1 ML 2ML syringe ONE (09:45)
--- NOTE | 2018-10-07 11:06 | NUR ---
Received from OR via , accompanied by Anesthesiologist DR ZHONG and report given by Anesthesiolgist. AWAKENS TO VOICE. VITALS STABLE. DRESSING DI. TONNY PAIN.
[2018-10-07] MEDS: meperidine/PF 25mg/ml syringe IV PRN ×2 (11:29→11:38)
--- NOTE | 2018-10-07 11:46 | NUR ---
Report called to receiving nurse. Transferred via BED Belongings . Special Issues communicated to receiving nurse. AWAKE AND ORIENTED. VITALS STABLE. DRESSING DI. STATEWS PAIN IMPROVING. TO SURGICAL RM 347B AT THIS TIME.
--- NOTE | 2018-10-07 15:12 | NUR ---
reassessment: Pt PO 25-50% avg carb controlled meals w/ 50% ONS. To OR today for repeat perineal wound I&D per MD note. Colostomy 400ml output. Will monitor for additional protein needs. Rec: 1. advance to carb controlled/mech soft/thin liquid diet 2. MVI/thiamin/folic for wounds/etoh 3. Phos-binder per MD 4. strawberry Glucerna TIDWM 5. wt w/ HD Addendum: 10/07/18 at [address] Amended: Links added.
--- NOTE | 2018-10-07 18:19 | NUR ---
Problems reprioritized. Patient report given, questions answered & plan of care reviewed with IGOR Chavez.
--- NOTE | 2018-10-07 18:20 | NUR ---
Patient in room [facility]. I have received report from Elo COSTA and had the opportunity to ask questions and assume patient care. Laying in bed stating no nausea with broth, states is no longer hungry. Will continue to monitor.
--- NOTE | 2018-10-07 18:30 | NUR ---
Patient ate 1 cup broth and BS is 108, will not receive insulin at this time. Will continue to monitor.
[2018-10-07] MEDS: heparin, porcine 5000 units/ml vial SQ SCH (20:00)
[2018-10-07] MEDS: insulin glargine (Lantus) pen - multi-dose SQ SCH (22:18)
[2018-10-08] MEDS: HYDROcodone/acetaminophen 10/325mg tab PO PRN ×3 (02:08→20:46)
[2018-10-08 04:50] LABS: BASOPHILS % (AUTO) 0.2 % (0-1); EOSINOPHILS % (AUTO) 0.1 % (0-6); HEMATOCRIT 26.1 % (35.0-45.0); HEMOGLOBIN 8.8 g/dl (12.0-16.0); LYMPHOCYTES # (AUTO) 2.1 X10'3 (1.1-4.8); LYMPHOCYTES % (AUTO) 24.9 % (21-51); MEAN CORPUSCULAR HEMOGLOBIN 31.5 PG (27.0-31.0); MEAN CORPUSCULAR HGB CONC 33.8 % (33.0-36.5); MEAN CORPUSCULAR VOLUME 93.2 FL (78-98); MEAN PLATELET VOLUME 7.6 FL (7.4-10.4); MONOCYTES # (AUTO) 0.6 X10'3 (0-0.9); MONOCYTES % (AUTO) 7.5 % (2-12); NEUTROPHILS # (AUTO) 5.7 X10'3 (1.8-7.7); NEUTROPHILS % (AUTO) 67.3 % (42-75); PLATELET COUNT 60 X10'3 (140-440); WHITE BLOOD COUNT 8.4 X10'3 (4.5-11.0)
[2018-10-08 05:13] LABS: ALANINE AMINOTRANSFERASE 17 U/L (12-78); ALBUMIN 1.4 G/DL (3.4-5.0); ALBUMIN/GLOBULIN RATIO 0.4 (1.1-1.5); ALKALINE PHOSPHATASE 123 IU/L (46-116); ANION GAP 15 (8-16); ASPARTATE AMINO TRANSFERASE 17 U/L (10-37); BILIRUBIN,TOTAL 0.5 MG/DL (0.1-1.0); BLOOD UREA NITROGEN 41 MG/DL (7-18); CALCIUM 7.4 MG/DL (8.5-10.1); CHLORIDE 105 MMOL/L (99-107); CREATININE 4.55 MG/DL (0.40-0.90); GLUCOSE 77 MG/DL (70-104); POTASSIUM 4.1 MMOL/L (3.5-5.1); SODIUM 141 MMOL/L (135-145); TOTAL PROTEIN 4.9 G/DL (6.4-8.2); VANCOMYCIN,RANDOM 16.5 UG/ML; eGFR 10 ML/MIN
--- NOTE | 2018-10-08 06:30 | NUR ---
Patient in room [facility]. I have received report from IGOR Chavez and had the opportunity to ask questions and assume patient care.
[2018-10-08] MEDS: VANCOMYCIN LEVEL IV SCH (06:38)
--- NOTE | 2018-10-08 06:55 | NUR ---
Problems reprioritized. Patient report given, questions answered & plan of care reviewed with Hollie RN. Patient resting, states doing well
[2018-10-08 07:00] VITALS: BP 128/61
[2018-10-08] MEDS: heparin 1,000 units/ml 10ml inj HE ONE ×2 (07:06→17:29)
[2018-10-08] MEDS: K, MAG and/or Phos replacement - Verify level? MC SCH (07:08)
[2018-10-08] MEDS: heparin, porcine 5000 units/ml vial SQ SCH (07:09)
[2018-10-08] MEDS: thiamine 100mg tablet PO SCH (07:31)
[2018-10-08] MEDS: metroNIDAZOLE 500mg tablet PO SCH ×2 (07:32→20:46)
[2018-10-08] MEDS: multivitamins, therapeutics tablet PO SCH (07:32)
[2018-10-08] MEDS: folic acid 1mg tablet PO SCH (07:32)
[2018-10-08] MEDS: lactobacillus rhamnosus 10,000 MMU CELLS/CAPSULE PO SCH ×2 (07:32→20:46)
[2018-10-08] MEDS: dextrose ORAL solution 15 GM/59 ML bottle PO PRN (07:40)
[2018-10-08] MEDS ORDERED: heparin 1,000unit/ml 10ml vial 10 ML IV ONE (08:00)
[2018-10-08] MEDS ORDERED: epoetin 20,000 units/ml inj IV ONE (08:00)
[2018-10-08] MEDS ORDERED: normal saline 1000ml 250 ML IV PRN (08:00)
[2018-10-08] MEDS: lactose-reduced food (Ensure High Protein) 237ml bottle PO SCH ×3 (08:00→18:36)
[2018-10-08] MEDS ORDERED: heparin 1,000 units/ml 10ml inj HE ONE (08:00)
[2018-10-08 11:30] VITALS: BP 135/66
[2018-10-08] MEDS: Dakins solution (1/4 strength) 473ml solution TP SCH ×2 (13:27→20:48)
[2018-10-08] MEDS: insulin Lispro (HumaLOG) vial - multi-dose SQ SCH (13:40)
--- NOTE | 2018-10-08 18:00 | NUR ---
Patient in room [facility] 347. I have received report from Hollie COSTA and had the opportunity to ask questions and assume patient care. Patient receiving dialysis, will continue to monitor.
--- NOTE | 2018-10-08 18:00 | NUR ---
Problems reprioritized. Patient report given, questions answered & plan of care reviewed with IGOR Chavez.
[2018-10-08 20:00] VITALS: BP 110/58
[2018-10-08] MEDS: cefTAZidime inj. 1 GM in normal saline 100ml IV soln 100 ML IV SCH (20:34)
[2018-10-08] MEDS: fluconazole 100mg tablet PO SCH (20:47)
[2018-10-08] MEDS: normal saline 1000ml 1,000 ML IV SCH (22:25)
[2018-10-08] MEDS: insulin glargine (Lantus) pen - multi-dose SQ SCH (23:18)
[2018-10-09] VITALS (21 sets, daily range): BP systolic 78–154; BP diastolic 47–78
[2018-10-09] MEDS: HYDROcodone/acetaminophen 10/325mg tab PO PRN ×3 (02:20→21:24)
[2018-10-09] MEDS: VANCOMYCIN LEVEL IV SCH (03:00)
[2018-10-09 05:14] LABS: BASOPHILS % (AUTO) 0 % (0-1); EOSINOPHILS % (AUTO) 0 % (0-6); HEMATOCRIT 25.3 % (35.0-45.0); HEMOGLOBIN 8.7 g/dl (12.0-16.0); LYMPHOCYTES # (AUTO) 2.2 X10'3 (1.1-4.8); LYMPHOCYTES % (AUTO) 25.4 % (21-51); MEAN CORPUSCULAR HEMOGLOBIN 31.7 PG (27.0-31.0); MEAN CORPUSCULAR HGB CONC 34.3 % (33.0-36.5); MEAN CORPUSCULAR VOLUME 92.5 FL (78-98); MEAN PLATELET VOLUME 7.6 FL (7.4-10.4); MONOCYTES # (AUTO) 0.7 X10'3 (0-0.9); MONOCYTES % (AUTO) 7.6 % (2-12); NEUTROPHILS # (AUTO) 5.8 X10'3 (1.8-7.7); PLATELET COUNT 74 X10'3 (140-440); RED BLOOD COUNT 2.73 X10'6 (4.20-5.60); RED CELL DISTRIBUTION WIDTH 16.6 % (11.5-14.5); WHITE BLOOD COUNT 8.8 X10'3 (4.5-11.0)
[2018-10-09 05:45] LABS: ALANINE AMINOTRANSFERASE 15 U/L (12-78); ALBUMIN 1.4 G/DL (3.4-5.0); ALBUMIN/GLOBULIN RATIO 0.4 (1.1-1.5); ALKALINE PHOSPHATASE 118 IU/L (46-116); ANION GAP 11 (8-16); ASPARTATE AMINO TRANSFERASE 15 U/L (10-37); BILIRUBIN,TOTAL 0.4 MG/DL (0.1-1.0); BLOOD UREA NITROGEN 20 MG/DL (7-18); BUN/CREATININE RATIO 7.6 (6.6-38.0); CALCIUM 7.3 MG/DL (8.5-10.1); CHLORIDE 104 MMOL/L (99-107); CREATININE 2.62 MG/DL (0.40-0.90); GLUCOSE 165 MG/DL (70-104); POTASSIUM 3.8 MMOL/L (3.5-5.1); SODIUM 140 MMOL/L (135-145); TOTAL CARBON DIOXIDE 24.8 MMOL/L (24-32); TOTAL PROTEIN 5.2 G/DL (6.4-8.2); VANCOMYCIN,RANDOM 10.9 UG/ML; eGFR 19 ML/MIN
[2018-10-09] MEDS ORDERED: vancomycin/NS 1 GM ADD-VANTAGE 250 ML IV ONE (06:30)
--- NOTE | 2018-10-09 06:43 | NUR ---
Patient in room [facility]. I have received report from IGOR Chavez and had the opportunity to ask questions and assume patient care.
--- NOTE | 2018-10-09 06:44 | NUR ---
Problems reprioritized. Patient report given, questions answered & plan of care reviewed with Brissa COSTA. Patient resting having vitals taken.
[2018-10-09] MEDS: folic acid 1mg tablet PO SCH (07:50)
[2018-10-09] MEDS: fluconazole 100mg tablet PO SCH (07:50)
[2018-10-09] MEDS: metroNIDAZOLE 500mg tablet PO SCH ×2 (07:50→21:23)
[2018-10-09] MEDS: thiamine 100mg tablet PO SCH (07:50)
[2018-10-09] MEDS: multivitamins, therapeutics tablet PO SCH (07:50)
[2018-10-09] MEDS: lactobacillus rhamnosus 10,000 MMU CELLS/CAPSULE PO SCH ×2 (07:50→21:23)
[2018-10-09] MEDS: Dakins solution (1/4 strength) 473ml solution TP SCH ×2 (07:52→20:00)
[2018-10-09] MEDS: lactose-reduced food (Ensure High Protein) 237ml bottle PO SCH ×3 (07:52→18:00)
[2018-10-09] MEDS: K, MAG and/or Phos replacement - Verify level? MC SCH (08:00)
[2018-10-09] MEDS: insulin Lispro (HumaLOG) vial - multi-dose SQ SCH (08:04)
--- NOTE | 2018-10-09 16:54 | NUR ---
pt left to OR, report called to IGOR Bhardwaj in recovery.
[2018-10-09] MEDS ORDERED: sevoflurane 250ml liquid IH ONE (17:30)
[2018-10-09] MEDS ORDERED: etomidate 2mg/ml inj. ONE ×2 (17:30→17:32)
[2018-10-09] MEDS ORDERED: ondansetron/PF 4mg/2ml inj IV PRN (18:00)
[2018-10-09] MEDS ORDERED: hydrALAZINE 20mg/ml inj. IV PRN (18:00)
[2018-10-09] MEDS ORDERED: labetalol 20mg/4ml (5mg/ml) syringe IV PRN (18:00)
[2018-10-09] MEDS ORDERED: morphine 4 MG/ML inj SYRINge IV PRN (18:00)
[2018-10-09] MEDS ORDERED: ringers solution, lacted 1,000 ML IV SCH (18:00)
[2018-10-09] MEDS ORDERED: fentaNYL/PF 50MCG/1 ML 2ML syringe IV PRN ×2 (18:00)
--- NOTE | 2018-10-09 18:30 | NUR ---
Received from OR via BED, accompanied by Anesthesiologist DR CHING and report given by Anesthesiologist. PT DROWSY BUT APPROPRIATE, DENIES PAIN, WOUND VAC @125MMGH TO LCS TO NOHEMIIUMDANIEL. Addendum: 10/09/18 at 1926 by Margy White RN Amended: Links added.
--- NOTE | 2018-10-09 18:45 | NUR ---
Problems reprioritized. Patient report given, questions answered & plan of care reviewed with IGOR Chavez.
[2018-10-09] MEDS: morphine 4 MG/ML inj SYRINge IV PRN ×2 (19:07→19:30)
--- NOTE | 2018-10-09 19:50 | NUR ---
Report called to receiving nurse. Transferred via BED, NO Belongings, RECEIVING RN AT BEDSIDE TO RECEIVE PT, SKIN CHECK DONE, PT COMFORTABLE. Special Issues communicated to receiving nurse. YES. Addendum: 10/09/18 at 2001 by Magry White RN Amended: Links added.
--- NOTE | 2018-10-09 20:00 | NUR ---
Patient returned from OR with Margy COSTA, Patient tolerating ice chips well, in good spirits but painful. Will continue to monitor.
--- NOTE | 2018-10-09 20:28 | NUR ---
Spoke to daughter Charline, informed of procedure. transferred to patient per request.
[2018-10-09] MEDS: insulin glargine (Lantus) pen - multi-dose SQ SCH (21:22)
[2018-10-10] VITALS: BP 127/64
[2018-10-10 04:20] VITALS: BP 133/63
--- NOTE | 2018-10-10 05:00 | NUR ---
Patient's bladder scan showed 694ml, encouraged patient to urinate in bedpan, urinated 100 ml in bedpan and WV pulled 210 ml into canister. 40 ml of sanguinous drainage in canister prior. Will continue to monitor. Wound vac turned off for 20 min and restarted after applying adhesive, suction returned to 125 mmHg. Addendum: 10/10/18 at 0655 by Kathy John RN Bladder scan should 292ml remaining in bladder at 0430.
[2018-10-10] MEDS: HYDROcodone/acetaminophen 10/325mg tab PO PRN (05:02)
[2018-10-10] MEDS: VANCOMYCIN LEVEL IV SCH (05:36)
--- NOTE | 2018-10-10 06:00 | NUR ---
Problems reprioritized. Patient report given, questions answered & plan of care reviewed with Brissa COSTA. Patient wound vac fixed seal.
--- NOTE | 2018-10-10 06:11 | NUR ---
Patient in room [facility]. I have received report from IGOR Chavez and had the opportunity to ask questions and assume patient care.
[2018-10-10 07:25] VITALS: BP 104/56
[2018-10-10] MEDS: Dakins solution (1/4 strength) 473ml solution TP SCH ×2 (08:00→19:58)
[2018-10-10] MEDS ORDERED: normal saline 1000ml 250 ML IV PRN (08:00)
[2018-10-10] MEDS ORDERED: epoetin 20,000 units/ml inj IV ONE (08:00)
[2018-10-10] MEDS ORDERED: heparin 1,000 units/ml 10ml inj HE ONE ×2 (08:00)
[2018-10-10] MEDS: K, MAG and/or Phos replacement - Verify level? MC SCH (08:00)
[2018-10-10] MEDS ORDERED: heparin 1,000unit/ml 10ml vial 10 ML IV ONE (08:00)
[2018-10-10] MEDS: lactose-reduced food (Ensure High Protein) 237ml bottle PO SCH ×3 (08:00→18:09)
[2018-10-10] MEDS: insulin Lispro (HumaLOG) vial - multi-dose SQ SCH (08:35)
[2018-10-10] MEDS: lactobacillus rhamnosus 10,000 MMU CELLS/CAPSULE PO SCH ×2 (08:36→20:12)
[2018-10-10] MEDS: fluconazole 100mg tablet PO SCH (08:36)
[2018-10-10] MEDS: metroNIDAZOLE 500mg tablet PO SCH ×2 (08:36→20:12)
[2018-10-10] MEDS: multivitamins, therapeutics tablet PO SCH (08:36)
[2018-10-10] MEDS: folic acid 1mg tablet PO SCH (08:36)
[2018-10-10] MEDS: cefTAZidime inj 2 GM in normal saline 100ml IV soln 100 ML IV SCH ×2 (08:36→16:01)
[2018-10-10] MEDS: thiamine 100mg tablet PO SCH (08:36)
[2018-10-10 11:00] VITALS: BP 116/69
--- NOTE | 2018-10-10 15:36 | NUR ---
FC placed at [address] Pan's order. Pt tolerated procedure well. Urine output in FC was purulent and cloudy in color. Dr Soto notified, order received for UA. Will continue to monitor.
[2018-10-10] MEDS ORDERED: morphine 4 MG/ML inj SYRINge IV ONE (15:50)
[2018-10-10] MEDS: normal saline 1000ml 1,000 ML IV SCH (16:02)
[2018-10-10 17:19] LABS: CLARITY,URINE CLOUDY (Clear); COLOR,URINE YELLOW (Yellow); GLUCOSE, URINE NEGATIVE (Neg); KETONES,URINE 15 mg/dl (Neg); LEUKOCYTE ESTERASE ,URINE LARGE (Neg); NITRITES, URINE NEGATIVE (Neg); OCCULT BLOOD,URINE LARGE (Neg); PH,URINE 7.5 (4.8-8.0); PROTEIN,URINE 100 mg/dl (Neg); UA COLLECTION TYPE NON-SPECIFIED; UROBILINOGEN,URINE 0.2 E.U/dL (0.2-1.0)
[2018-10-10 17:30] LABS: MUCUS STRANDS NONE SEEN /LPF (Neg); SQUAMOUS EPITHELIAL CELL,UR NONE SEEN /LPF (FEW); WBC,URINE TNTC /HPF (0-4)
[2018-10-10 17:31] LABS: BACTERIA,URINE 1+ /HPF (Neg)
--- NOTE | 2018-10-10 18:56 | NUR ---
Problems reprioritized. Patient report given, questions answered & plan of care reviewed with IGOR Riddle.
[2018-10-10 20:00] VITALS: BP 122/55
[2018-10-10] MEDS: insulin glargine (Lantus) pen - multi-dose SQ SCH (21:05)
[2018-10-11] VITALS: BP 134/77
[2018-10-11] MEDS: VANCOMYCIN LEVEL IV SCH (03:00)
[2018-10-11] MEDS: HYDROcodone/acetaminophen 10/325mg tab PO PRN ×3 (04:07→22:49)
--- NOTE | 2018-10-11 04:20 | NUR ---
Lab here, woke up pt. Pt c/o 07/16 pain. [place] given. 0455 [place] ineffective, pt upset. Kevin Edward called and order for Morphine was obtained. Addendum: 10/11/18 at 0456 by Ann Laguerre RN Amended: Links added.
[2018-10-11] MEDS: morphine 4 MG/ML inj SYRINge IV PRN (05:04)
[2018-10-11 05:36] LABS: ALANINE AMINOTRANSFERASE 17 U/L (12-78); ALBUMIN 1.5 G/DL (3.4-5.0); ALBUMIN/GLOBULIN RATIO 0.4 (1.1-1.5); ALKALINE PHOSPHATASE 138 IU/L (46-116); ANION GAP 10 (8-16); ASPARTATE AMINO TRANSFERASE 19 U/L (10-37); BILIRUBIN,TOTAL 0.3 MG/DL (0.1-1.0); BLOOD UREA NITROGEN 13 MG/DL (7-18); BUN/CREATININE RATIO 6.2 (6.6-38.0); CALCIUM 7.6 MG/DL (8.5-10.1); CHLORIDE 104 MMOL/L (99-107); GLUCOSE 199 MG/DL (70-104); MAGNESIUM 1.6 MG/DL (1.5-2.4); PHOSPHORUS 2.3 MG/DL (2.3-4.5); POTASSIUM 3.9 MMOL/L (3.5-5.1); SODIUM 140 MMOL/L (135-145); TOTAL CARBON DIOXIDE 25.7 MMOL/L (24-32); TOTAL PROTEIN 5.5 G/DL (6.4-8.2); VANCOMYCIN,RANDOM 15.5 UG/ML; eGFR 24 ML/MIN
[2018-10-11 05:40] LABS: BASOPHILS % (AUTO) 0.1 % (0-1); EOSINOPHILS % (AUTO) 0 % (0-6); HEMATOCRIT 26.2 % (35.0-45.0); HEMOGLOBIN 8.6 g/dl (12.0-16.0); LYMPHOCYTES # (AUTO) 1.8 X10'3 (1.1-4.8); LYMPHOCYTES % (AUTO) 21.9 % (21-51); MEAN CORPUSCULAR HEMOGLOBIN 30.6 PG (27.0-31.0); MEAN CORPUSCULAR HGB CONC 32.9 % (33.0-36.5); MONOCYTES # (AUTO) 0.6 X10'3 (0-0.9); MONOCYTES % (AUTO) 7.3 % (2-12); NEUTROPHILS # (AUTO) 5.8 X10'3 (1.8-7.7); NEUTROPHILS % (AUTO) 70.7 % (42-75); PLATELET COUNT 153 X10'3 (140-440); RED BLOOD COUNT 2.82 X10'6 (4.20-5.60); RED CELL DISTRIBUTION WIDTH 17.3 % (11.5-14.5); WHITE BLOOD COUNT 8.2 X10'3 (4.5-11.0)
--- NOTE | 2018-10-11 06:44 | NUR ---
Problems reprioritized. Patient report given, questions answered & plan of care reviewed with Ashley COSTA. Addendum: 10/11/18 at 0644 by Ann Laguerre RN Amended: Links added.
--- NOTE | 2018-10-11 06:44 | NUR ---
Patient in room [facility]. I have received report from Ann COSTA and had the opportunity to ask questions and assume patient care.
[2018-10-11 07:00] VITALS: BP 109/46
[2018-10-11] MEDS: K, MAG and/or Phos replacement - Verify level? MC SCH (08:00)
[2018-10-11] MEDS: Dakins solution (1/4 strength) 473ml solution TP SCH ×2 (08:00→19:41)
[2018-10-11] MEDS: metroNIDAZOLE 500mg tablet PO SCH ×2 (08:44→19:29)
[2018-10-11] MEDS: lactobacillus rhamnosus 10,000 MMU CELLS/CAPSULE PO SCH ×2 (08:44→19:29)
[2018-10-11] MEDS: multivitamins, therapeutics tablet PO SCH (08:44)
[2018-10-11] MEDS: lactose-reduced food (Ensure High Protein) 237ml bottle PO SCH ×3 (08:45→18:04)
[2018-10-11] MEDS: thiamine 100mg tablet PO SCH (08:45)
[2018-10-11] MEDS: fluconazole 100mg tablet PO SCH (08:45)
[2018-10-11] MEDS: folic acid 1mg tablet PO SCH (08:45)
[2018-10-11] MEDS: insulin Lispro (HumaLOG) vial - multi-dose SQ SCH ×3 (08:57→21:40)
[2018-10-11] MEDS: insulin glargine (Lantus) pen - multi-dose SQ SCH (21:39)
--- NOTE | 2018-10-12 02:23 | NUR ---
Pt distraut and crying, states she feels as if she is unable to move her body. Repostioned to other side, when assisting pt to turn, she was able to turn self. Advised pt of her turning abilities. Reminded we have been checking on her every hour, and we responded quickly with the press of her call button. Advised to call if anything needed. Patient now sitting up in bed to read.
[2018-10-12] MEDS: VANCOMYCIN LEVEL IV SCH (03:00)
[2018-10-12 05:22] LABS: ALANINE AMINOTRANSFERASE 15 U/L (12-78); ALBUMIN 1.5 G/DL (3.4-5.0); ALBUMIN/GLOBULIN RATIO 0.4 (1.1-1.5); ALKALINE PHOSPHATASE 134 IU/L (46-116); ANION GAP 10 (8-16); ASPARTATE AMINO TRANSFERASE 19 U/L (10-37); BILIRUBIN,TOTAL 0.3 MG/DL (0.1-1.0); BLOOD UREA NITROGEN 18 MG/DL (7-18); BUN/CREATININE RATIO 7.1 (6.6-38.0); CALCIUM 7.5 MG/DL (8.5-10.1); CHLORIDE 103 MMOL/L (99-107); CREATININE 2.52 MG/DL (0.40-0.90); GLUCOSE 209 MG/DL (70-104); MAGNESIUM 1.5 MG/DL (1.5-2.4); PHOSPHORUS 2.5 MG/DL (2.3-4.5); POTASSIUM 3.6 MMOL/L (3.5-5.1); SODIUM 140 MMOL/L (135-145); TOTAL CARBON DIOXIDE 27.1 MMOL/L (24-32); TOTAL PROTEIN 5.4 G/DL (6.4-8.2); VANCOMYCIN,RANDOM 13.7 UG/ML; eGFR 19 ML/MIN
--- NOTE | 2018-10-12 06:28 | NUR ---
Problems reprioritized. Patient report given, questions answered & plan of care reviewed with IGOR Sandoval.
[2018-10-12 06:39] LABS: BASOPHILS % (AUTO) 0.3 % (0-1); EOSINOPHILS % (AUTO) 0.6 % (0-6); HEMATOCRIT 26.2 % (35.0-45.0); HEMOGLOBIN 8.5 g/dl (12.0-16.0); LYMPHOCYTES # (AUTO) 1.8 X10'3 (1.1-4.8); LYMPHOCYTES % (AUTO) 25.2 % (21-51); MEAN CORPUSCULAR HEMOGLOBIN 30.2 PG (27.0-31.0); MEAN CORPUSCULAR HGB CONC 32.3 % (33.0-36.5); MEAN CORPUSCULAR VOLUME 93.5 FL (78-98); MEAN PLATELET VOLUME 6.7 FL (7.4-10.4); MONOCYTES # (AUTO) 0.6 X10'3 (0-0.9); MONOCYTES % (AUTO) 8.8 % (2-12); NEUTROPHILS # (AUTO) 4.6 X10'3 (1.8-7.7); NEUTROPHILS % (AUTO) 65.1 % (42-75); PLATELET COUNT 211 X10'3 (140-440); RED CELL DISTRIBUTION WIDTH 18.2 % (11.5-14.5); WHITE BLOOD COUNT 7.1 X10'3 (4.5-11.0)
--- NOTE | 2018-10-12 07:17 | NUR ---
Patient in room [facility] 347. I have received report from Bren COSTA and had the opportunity to ask questions and assume patient care.
[2018-10-12] MEDS: K, MAG and/or Phos replacement - Verify level? MC SCH (07:21)
[2018-10-12] MEDS: multivitamins, therapeutics tablet PO SCH (07:27)
[2018-10-12] MEDS: lactobacillus rhamnosus 10,000 MMU CELLS/CAPSULE PO SCH ×2 (07:27→19:34)
[2018-10-12] MEDS: thiamine 100mg tablet PO SCH (07:27)
[2018-10-12] MEDS: folic acid 1mg tablet PO SCH (07:28)
[2018-10-12] MEDS: metroNIDAZOLE 500mg tablet PO SCH ×2 (07:28→19:34)
[2018-10-12] MEDS: lactose-reduced food (Ensure High Protein) 237ml bottle PO SCH ×3 (07:29→17:42)
[2018-10-12] MEDS: Dakins solution (1/4 strength) 473ml solution TP SCH ×2 (07:32→20:00)
[2018-10-12 08:00] VITALS: BP 134/72
[2018-10-12] MEDS: insulin Lispro (HumaLOG) vial - multi-dose SQ SCH ×3 (09:08→18:37)
[2018-10-12] MEDS ORDERED: vancomycin/NS 1 GM ADD-VANTAGE 250 ML IV ONE (10:45)
[2018-10-12 12:00] VITALS: BP 116/76
--- NOTE | 2018-10-12 15:40 | NUR ---
reassessment: Pt PO 75-100% carb controlled meals meeting needs. 150ml colostomy output. Receiving MVI, thiamin, folic for etoh. No nutrition concerns at this time. Rec: 1. advance to carb controlled/mech soft/thin liquid diet 2. MVI/thiamin/folic for wounds/etoh 3. Phos-binder per MD 4. strawberry Glucerna TIDWM 5. wt w/ HD Addendum: 10/12/18 at [address] Amended: Links added.
--- NOTE | 2018-10-12 18:24 | NUR ---
Problems reprioritized. Patient report given, questions answered & plan of care reviewed with Stephanie COSTA. Informed Stephanie COSTA that diflucan was not available informed pharmacy, and needs to be given when pharmacy delivers.
--- NOTE | 2018-10-12 18:25 | NUR ---
Patient in room [facility]. I have received report from IGOR Sandoval and had the opportunity to ask questions and assume patient care. Addendum: 10/12/18 at 1917 by Erwin Cabrera RN Amended: Links added.
[2018-10-12] MEDS: fluconazole 100mg tablet PO SCH (18:38)
[2018-10-12 19:45] VITALS: BP 149/79
[2018-10-12] MEDS: insulin glargine (Lantus) pen - multi-dose SQ SCH (20:52)
[2018-10-12] MEDS: HYDROcodone/acetaminophen 10/325mg tab PO PRN (21:37)
[2018-10-12] MEDS: morphine 4 MG/ML inj SYRINge IV PRN (22:51)
[2018-10-12] MEDS: normal saline 1000ml 1,000 ML IV SCH (22:52)
[2018-10-12 23:00] VITALS: BP 155/79
[2018-10-13] MEDS: VANCOMYCIN LEVEL IV SCH (03:00)
[2018-10-13] MEDS: morphine 4 MG/ML inj SYRINge IV PRN (05:46)
[2018-10-13 06:30] VITALS: BP 142/78
--- NOTE | 2018-10-13 06:30 | NUR ---
Patient in room [facility]. I have received report from IGOR Brown and had the opportunity to ask questions and assume patient care.
--- NOTE | 2018-10-13 06:34 | NUR ---
Problems reprioritized. Patient report given, questions answered & plan of care reviewed with IGOR MONTES. Addendum: 10/13/18 at 0634 by Erwin Cabrera RN Amended: Links added.
[2018-10-13 07:34] LABS: BASOPHILS % (AUTO) 0.2 % (0-1); EOSINOPHILS % (AUTO) 0.4 % (0-6); HEMATOCRIT 28.4 % (35.0-45.0); HEMOGLOBIN 9.4 g/dl (12.0-16.0); LYMPHOCYTES # (AUTO) 1.9 X10'3 (1.1-4.8); LYMPHOCYTES % (AUTO) 26.9 % (21-51); MEAN CORPUSCULAR HEMOGLOBIN 30.8 PG (27.0-31.0); MEAN CORPUSCULAR HGB CONC 32.9 % (33.0-36.5); MEAN CORPUSCULAR VOLUME 93.6 FL (78-98); MEAN PLATELET VOLUME 6.6 FL (7.4-10.4); MONOCYTES # (AUTO) 0.8 X10'3 (0-0.9); MONOCYTES % (AUTO) 10.9 % (2-12); NEUTROPHILS # (AUTO) 4.3 X10'3 (1.8-7.7); NEUTROPHILS % (AUTO) 61.6 % (42-75); PLATELET COUNT 210 X10'3 (140-440); RED BLOOD COUNT 3.04 X10'6 (4.20-5.60); RED CELL DISTRIBUTION WIDTH 18.2 % (11.5-14.5); WHITE BLOOD COUNT 6.9 X10'3 (4.5-11.0)
[2018-10-13] MEDS: Dakins solution (1/4 strength) 473ml solution TP SCH (07:36)
[2018-10-13 07:52] LABS: ALANINE AMINOTRANSFERASE 14 U/L (12-78); ALBUMIN 1.5 G/DL (3.4-5.0); ALBUMIN/GLOBULIN RATIO 0.3 (1.1-1.5); ALKALINE PHOSPHATASE 135 IU/L (46-116); ANION GAP 10 (8-16); ASPARTATE AMINO TRANSFERASE 28 U/L (10-37); BILIRUBIN,TOTAL 0.3 MG/DL (0.1-1.0); BLOOD UREA NITROGEN 18 MG/DL (7-18); BUN/CREATININE RATIO 6.7 (6.6-38.0); CALCIUM 7.6 MG/DL (8.5-10.1); CHLORIDE 105 MMOL/L (99-107); CREATININE 2.69 MG/DL (0.40-0.90); GLUCOSE 123 MG/DL (70-104); MAGNESIUM 1.5 MG/DL (1.5-2.4); PHOSPHORUS 2.4 MG/DL (2.3-4.5); SODIUM 139 MMOL/L (135-145); TOTAL CARBON DIOXIDE 24.4 MMOL/L (24-32); TOTAL PROTEIN 5.8 G/DL (6.4-8.2); VANCOMYCIN,RANDOM 21.3 UG/ML; eGFR 18 ML/MIN
[2018-10-13 07:55] LABS: POTASSIUM 3.7 MMOL/L (3.5-5.1)
[2018-10-13] MEDS: lactose-reduced food (Ensure High Protein) 237ml bottle PO SCH ×2 (08:00→13:00)
[2018-10-13] MEDS: K, MAG and/or Phos replacement - Verify level? MC SCH (08:00)
[2018-10-13] MEDS: insulin Lispro (HumaLOG) vial - multi-dose SQ SCH (08:24)
[2018-10-13] MEDS: fluconazole 100mg tablet PO SCH (08:25)
[2018-10-13] MEDS: cefTAZidime inj. 1 GM in normal saline 100ml IV soln 100 ML IV SCH (08:25)
[2018-10-13] MEDS: thiamine 100mg tablet PO SCH (08:25)
[2018-10-13] MEDS: lactobacillus rhamnosus 10,000 MMU CELLS/CAPSULE PO SCH (08:25)
[2018-10-13] MEDS: multivitamins, therapeutics tablet PO SCH (08:25)
[2018-10-13] MEDS: metroNIDAZOLE 500mg tablet PO SCH (08:26)
[2018-10-13] MEDS: folic acid 1mg tablet PO SCH (08:26)
[2018-10-13] MEDS ORDERED: normal saline 1000ml 250 ML IV PRN (08:59)
[2018-10-13] MEDS ORDERED: heparin 1,000unit/ml 10ml vial 10 ML IV ONE (08:59)
[2018-10-13] MEDS ORDERED: epoetin 20,000 units/ml inj IV ONE (09:00)
[2018-10-13] MEDS ORDERED: heparin 1,000 units/ml 10ml inj HE ONE ×2 (09:05)
[2018-10-13 11:00] VITALS: BP 140/86
[2018-10-13] MEDS ORDERED: CEFT1PIG2 IV (12:45)
[2018-10-13] MEDS ORDERED: INSU100V11 SQ (12:45)
[2018-10-13] MEDS ORDERED: FOLI1CAP PO (12:45)
[2018-10-13] MEDS ORDERED: ZOF4I IV (12:45)
[2018-10-13] MEDS ORDERED: CEFT2PIG5 IV (12:45)
[2018-10-13] MEDS ORDERED: SODI473S20 TP (12:45)
[2018-10-13] MEDS ORDERED: FOLI1TAB16 PO (12:45)
[2018-10-13] MEDS ORDERED: METR-159 PO (12:45)
[2018-10-13] MEDS ORDERED: VANC1PLA9 IV (12:45)
[2018-10-13] MEDS ORDERED: LACT1CAP26 PO (12:45)
[2018-10-13] MEDS ORDERED: LANTUS SQ (12:45)
[2018-10-13] MEDS ORDERED: FLUC100T9 PO (12:45)
--- NOTE | 2018-10-13 16:55 | NUR ---
Pt transported to [facility] via ambulance.
== END 2018-10-13 16:58 | DRG 853 ==
LOC: ER 09:26 → ED HOLD 12:36 → ICU 2S 14:21 → ORTHO 4S 09-23 22:10 → SUR 3N 10-01 17:55 → PACU 10-07 09:13 → SUR 3N 10-07 11:48
PROVIDERS: ADMIT Internal Medicine Critical Care Medicine; ATTEND Internal Medicine Critical Care Medicine
PROC: 5A1955Z Respiratory Ventilation, Greater than 96 Consecutive Hours (ICD-10-PCS; principal; 2018-09-13)
PROC: 0BH17EZ Insertion of Endotracheal Airway into Trachea, Via Natural or Artificial Opening (ICD-10-PCS; 2018-09-13)
PROC: 02HV33Z Insertion of Infusion Device into Superior Vena Cava, Percutaneous Approach (ICD-10-PCS; 2018-09-13)
PROC: 0J9B3ZZ Drainage of Perineum Subcutaneous Tissue and Fascia, Percutaneous Approach (ICD-10-PCS; 2018-09-13)
PROC: 5A1D70Z Performance of Urinary Filtration, Intermittent, Less than 6 Hours Per Day (ICD-10-PCS; 2018-09-14)
PROC: 4A10X4Z Monitoring of Central Nervous Electrical Activity, External Approach (ICD-10-PCS; 2018-09-16)
PROC: 5A1D70Z Performance of Urinary Filtration, Intermittent, Less than 6 Hours Per Day (ICD-10-PCS; 2018-09-16)
PROC: 5A1D70Z Performance of Urinary Filtration, Intermittent, Less than 6 Hours Per Day (ICD-10-PCS; 2018-09-18)
PROC: 0JH63XZ Insertion of Tunneled Vascular Access Device into Chest Subcutaneous Tissue and Fascia, Percutaneous Approach (ICD-10-PCS; 2018-09-19)
PROC: 02HV33Z Insertion of Infusion Device into Superior Vena Cava, Percutaneous Approach (ICD-10-PCS; 2018-09-19)
PROC: B548ZZA Ultrasonography of Superior Vena Cava, Guidance (ICD-10-PCS; 2018-09-19)
PROC: 5A1D70Z Performance of Urinary Filtration, Intermittent, Less than 6 Hours Per Day (ICD-10-PCS; 2018-09-20)
PROC: 5A1D70Z Performance of Urinary Filtration, Intermittent, Less than 6 Hours Per Day (ICD-10-PCS; 2018-09-21)
PROC: 5A1D70Z Performance of Urinary Filtration, Intermittent, Less than 6 Hours Per Day (ICD-10-PCS; 2018-09-23)
PROC: 5A1D70Z Performance of Urinary Filtration, Intermittent, Less than 6 Hours Per Day (ICD-10-PCS; 2018-09-26)
PROC: 5A1D70Z Performance of Urinary Filtration, Intermittent, Less than 6 Hours Per Day (ICD-10-PCS; 2018-09-26)
PROC: 0JBB0ZZ Excision of Perineum Subcutaneous Tissue and Fascia, Open Approach (ICD-10-PCS; 2018-09-28)
PROC: 5A1D70Z Performance of Urinary Filtration, Intermittent, Less than 6 Hours Per Day (ICD-10-PCS; 2018-09-29)
PROC: 0D1N0Z4 Bypass Sigmoid Colon to Cutaneous, Open Approach (ICD-10-PCS; 2018-10-01)
PROC: 0UBM0ZZ Excision of Vulva, Open Approach (ICD-10-PCS; 2018-10-01)
PROC: 5A1D70Z Performance of Urinary Filtration, Intermittent, Less than 6 Hours Per Day (ICD-10-PCS; 2018-10-01)
PROC: 30233N1 Transfusion of Nonautologous Red Blood Cells into Peripheral Vein, Percutaneous Approach (ICD-10-PCS; 2018-10-03)
PROC: 5A1D70Z Performance of Urinary Filtration, Intermittent, Less than 6 Hours Per Day (ICD-10-PCS; 2018-10-03)
PROC: 0JBB0ZZ Excision of Perineum Subcutaneous Tissue and Fascia, Open Approach (ICD-10-PCS; 2018-10-07)
PROC: 5A1D70Z Performance of Urinary Filtration, Intermittent, Less than 6 Hours Per Day (ICD-10-PCS; 2018-10-08)
PROC: 0HD9XZZ Extraction of Perineum Skin, External Approach (ICD-10-PCS; 2018-10-09)
PROC: 5A1D70Z Performance of Urinary Filtration, Intermittent, Less than 6 Hours Per Day (ICD-10-PCS; 2018-10-10)
PROC: 5A1D70Z Performance of Urinary Filtration, Intermittent, Less than 6 Hours Per Day (ICD-10-PCS; 2018-10-13)
DX: A41.9 Sepsis, unspecified organism (principal); E10.10 Type 1 diabetes mellitus with ketoacidosis without coma; J96.00 Acute respiratory failure, unspecified whether with hypoxia or hypercapnia; J15.5 Pneumonia due to Escherichia coli; G93.41 Metabolic encephalopathy; R65.21 Severe sepsis with septic shock; N17.9 Acute kidney failure, unspecified; N39.0 Urinary tract infection, site not specified; N76.4 Abscess of vulva; R18.8 Other ascites; L02.215 Cutaneous abscess of perineum; I12.9 Hypertensive chronic kidney disease with stage 1 through stage 4 chronic kidney disease, or unspecified chronic kidney disease; N18.3 Chronic kidney disease, stage 3 (moderate); T68.XXXA Hypothermia, initial encounter; E10.22 Type 1 diabetes mellitus with diabetic chronic kidney disease; K74.60 Unspecified cirrhosis of liver; E86.0 Dehydration; K80.20 Calculus of gallbladder without cholecystitis without obstruction; L08.9 Local infection of the skin and subcutaneous tissue, unspecified; R19.7 Diarrhea, unspecified; N13.9 Obstructive and reflux uropathy, unspecified; N76.2 Acute vulvitis; Z79.4 Long term (current) use of insulin; Z88.2 Allergy status to sulfonamides; Z99.2 Dependence on renal dialysis
CPT/HCPCS: 10060; 31500; 36415; 36556; 36558; 36600; 70450; 70551; 71045; 74018; 74176; 76700; 76937; 77001; 80048; 80053; 80202; 81001; 81025; 82009; 82550; 82803; 82810; 82948; 83036; 83605; 83690; 83735; 84100; 84132; 84134; 84145; 84439; 84443; 85018; 85025; 85027; 85610; 85730; 86140; 86885; 86900; 86901; 86920; 87040; 87070; 87077; 87088; 87186; 87324; 87340; 87449; 88304; 88305; 90935; 92616; 93005; 94002; 94003; 94760; 95816; 96365; 96368; 96375; 97110; 97116; 97162; 97530; 99291; 99292; A4421; A6253; A6446; A6449; A7000; A9270; C1750; C1758; C1894; C9113; G0257; G0378; J0171; J0290; J0360; J0713; J0885; J1644; J1720; J1815; J2001; J2175; J2250; J2270; J2405; J2543; J2704; J2765; J2795; J3010; J3370; J3475; J3480; J3490; J7030; J7060; J7120; P9016; P9045; P9047

== ENCOUNTER 2018-11-06 10:39 | Observation (INO) | payer MEDICARE, OTHER ==
[~2018-11-06] VITALS: Ht 172.7 cm; Wt 79.7 kg
[~2018-11-06 10:39] MED LIST changes: +ATOR20TA66 PO; +FLU VACC QUAD 2018(5 YR UP)/PF 60 MCG/0.5 ML SYRINGE IM ONE; +FLUC100T9 PO; +FOLI1CAP PO; +FOLI1TAB16 PO; +INSU100V11 SQ; +LACT1CAP26 PO; +LANTUS SQ; +METR-159 PO; +NO HOME MEDS; -NORepinephrine bitartrate 8 MG in NS 250 ML BAG (32 mcg/ml) IV ONE; +SODI473S20 TP; +VANC1PLA9 IV; +ZOF4I IV; -epiNEPHrine 0.1mg/ml 10ml syringe ONE; -etomidate 2mg/ml inj. ONE; +pneumococcal 23-VAL P-sac vacc 25 mcg/0.5ml vial IMVAC ONE; -rocuronium 10mg/ml inj IV ONE
--- NOTE | 2018-11-06 10:42 | NUR ---
BROUGHT TO ER #11 PER EMS WITH C/O WEAKNESS THIS MORNING DURING PHYSICAL THERAPY. PATIENT STAYS AT [facility] AT THIS TIME AND STATES SHE HAD WEAKNESS AROUND 0900, IN LEFT ARM AND LEFT LEG, WHICH SUBSIDED AFTER 30 MINUTES. DENIES PAIN. SPEECH CLEAR. PT HAS HX DIABETES AND HAD LOW BLOOD SUGAR OF 59 THIS MORNING, PRIOR TO BREAKFAST. HX KIDNEY DISEASE WITH PAST DIALYSIS. COLOSTOMY NOTED TO LEFT UPPER ABD. GARCIA CATH INTACT ON ADMISSION. DRESSING INTACT TO COCCYX AREA OVER PRESSURE ULCER THAT SHE IS RECEIVING TREATMENT FOR. MONITOR INTACT DISPLAYING SINUS RHYTHM.
[2018-11-06] MEDS ORDERED: aspirin 325mg tablet PO ONE (13:00)
[2018-11-06 13:13] LABS: BASOPHILS % (AUTO) 0.1 % (0-1); EOSINOPHILS # (AUTO) 0.1 X10'3 (0-0.9); EOSINOPHILS % (AUTO) 0.7 % (0-6); HEMATOCRIT 22.4 % (35.0-45.0); HEMOGLOBIN 7.6 g/dl (12.0-16.0); INR 1.1 INR; LYMPHOCYTES # (AUTO) 1.5 X10'3 (1.1-4.8); LYMPHOCYTES % (AUTO) 19.1 % (21-51); MEAN CORPUSCULAR HEMOGLOBIN 30.1 PG (27.0-31.0); MEAN CORPUSCULAR HGB CONC 33.9 g/dL (33.0-36.5); MEAN CORPUSCULAR VOLUME 88.7 FL (78-98); MEAN PLATELET VOLUME 6.5 FL (7.4-10.4); MONOCYTES # (AUTO) 0.5 X10'3 (0-0.9); MONOCYTES % (AUTO) 6.8 % (2-12); NEUTROPHILS # (AUTO) 5.9 X10'3 (1.8-7.7); NEUTROPHILS % (AUTO) 73.3 % (42-75); PARTIAL THROMBOPLASTIN TIME 28 SECONDS (22-32); PLATELET COUNT 229 X10'3 (140-440); PROTHROMBIN TIME 10.9 SECONDS (9.0-12.0); RED BLOOD COUNT 2.52 X10'6 (4.20-5.60); RED CELL DISTRIBUTION WIDTH 15.4 % (11.5-14.5)
[2018-11-06 13:16] LABS: ALANINE AMINOTRANSFERASE 50 U/L (12-78); ALBUMIN 2.3 G/DL (3.4-5.0); ALBUMIN/GLOBULIN RATIO 0.5 (1.1-1.5); ALKALINE PHOSPHATASE 270 IU/L (46-116); ANION GAP 12 (8-16); ASPARTATE AMINO TRANSFERASE 38 U/L (10-37); BILIRUBIN,TOTAL 0.2 MG/DL (0.1-1.0); BLOOD UREA NITROGEN 45 MG/DL (7-18); BUN/CREATININE RATIO 29.4 (6.6-38.0); CALCIUM 8.2 MG/DL (8.5-10.1); CHLORIDE 104 MMOL/L (99-107); CREATININE 1.53 MG/DL (0.40-0.90); GLUCOSE 115 MG/DL (70-104); POTASSIUM 4.1 MMOL/L (3.5-5.1); SODIUM 141 MMOL/L (135-145); TOTAL CARBON DIOXIDE 25.5 MMOL/L (24-32); TOTAL PROTEIN 6.9 G/DL (6.4-8.2); eGFR 35 ML/MIN
[2018-11-06] MEDS ORDERED: DOCU283E2 PR (14:24)
[2018-11-06] MEDS ORDERED: ACET-2119 PO (14:24)
--- NOTE | 2018-11-06 14:45 | NUR ---
ANN HUERTAS. AWAITING INPATIENT ADMISSION AT THIS TIME.
[2018-11-06] MEDS ORDERED: MELA3TAB PO (14:55)
[2018-11-06] MEDS ORDERED: SENN-162 PO (14:55)
[2018-11-06] MEDS ORDERED: IRON-32 PO (14:55)
[2018-11-06] MEDS ORDERED: PRAV80TA3 PO (14:55)
[2018-11-06] MEDS ORDERED: INSU100C10 SQ (15:03)
[2018-11-06] MEDS ORDERED: LANTUS SQ (15:03)
[2018-11-06] MEDS ORDERED: FOLI1TAB16 PO (15:03)
[2018-11-06] MEDS ORDERED: FOLI1CAP PO (15:04)
[2018-11-06] MEDS ORDERED: POLY17PO10 PO (15:04)
[2018-11-06] MEDS ORDERED: HYDR-4383 PO (15:04)
[2018-11-06] MEDS ORDERED: SODI473S26 MC (15:04)
[2018-11-06] MEDS ORDERED: LIDOCAINE 4% TOP (15:04)
[2018-11-06] MEDS ORDERED: ONDA4TAB12 PO (15:04)
[2018-11-06] MEDS ORDERED: MESSAGE TO PHARMACY PO ONE (16:30)
[2018-11-06] MEDS ORDERED: dextrose 50%-water 50ml dispensing syringe IV PRN ×2 (16:30)
[2018-11-06] MEDS ORDERED: dextrose ORAL solution 15 GM/59 ML bottle PO PRN ×2 (16:30)
[2018-11-06] MEDS ORDERED: glucagon, human recombinant 1mg kit SUBCUT PRN (16:30)
[2018-11-06] MEDS ORDERED: insulin Lispro (HumaLOG) vial - multi-dose SQ SCH (16:30)
[2018-11-06] MEDS ORDERED: normal saline 1000ml 1,000 ML IV SCH (16:34)
[2018-11-06] MEDS ORDERED: magnesium 2GM in 50ml NS 50 ML IV PRN (16:35)
[2018-11-06] MEDS ORDERED: mag hydrox/Alum hydrox/simeth 30ml oral suspension PO PRN (16:35)
[2018-11-06] MEDS ORDERED: potassium Cl 20 mEq SR tablet PO PRN ×2 (16:35)
[2018-11-06] MEDS ORDERED: morphine 4 MG/ML inj SYRINge IV PRN (16:35)
[2018-11-06] MEDS ORDERED: magnesium 4gm in 100ml NS 100 ML IV PRN (16:35)
[2018-11-06] MEDS ORDERED: potassium Cl 40MEQ/NS 500ml 500 ML IV PRN ×2 (16:35)
[2018-11-06] MEDS ORDERED: acetaminophen 325mg tablet PO PRN ×2 (16:35)
[2018-11-06] MEDS ORDERED: ondansetron/PF 4mg/2ml inj IV PRN (16:35)
[2018-11-06] MEDS ORDERED: magnesium Cl slow-release 64mg tablet PO PRN (16:35)
[2018-11-06] MEDS ORDERED: HYDROcodone/acetaminophen 5mg/325mg tablet PO PRN (16:35)
--- NOTE | 2018-11-06 17:54 | NUR ---
REPORT TO IGOR RATLIFF ON ORTHO/NEURO UNIT. PATIENT PREPARING FOR TRANSFER TO INPATIENT ROOM.
--- NOTE | 2018-11-06 18:16 | NUR ---
I have received report from IGOR Flowers and had the opportunity to ask questions pending arrival from ER.
[2018-11-06 18:18] VITALS: BP 158/73
[2018-11-06] MEDS: heparin, porcine 5000 units/ml vial SQ SCH (20:09)
[2018-11-06] MEDS: sennosides 8.6mg tablet PO SCH (20:09)
[2018-11-06] MEDS ORDERED: temazepam 15mg capsule PO PRN (21:00)
[2018-11-06] MEDS ORDERED: pravastatin 40mg tablet PO SCH (21:00)
[2018-11-06] MEDS ORDERED: insulin glargine (Lantus) pen - multi-dose SQ SCH (21:00)
[2018-11-06 22:00] VITALS: BP_SYST 120; BP_SYST 123; BP_SYST 152; BP_DIAS 64; BP_DIAS 67; BP_DIAS 74
[2018-11-07 02:00] VITALS: BP 172/70
[2018-11-07 06:00] VITALS: BP 141/74
--- NOTE | 2018-11-07 06:05 | NUR ---
Patient in room ORTHO 4021. I have received report from Anna Lundberg and had the opportunity to ask questions and assume patient care.
--- NOTE | 2018-11-07 06:19 | NUR ---
Problems reprioritized. Patient report given, questions answered & plan of care reviewed with IGOR Boogie.
[2018-11-07 06:40] LABS: BASOPHILS % (AUTO) 0.2 % (0-1); EOSINOPHILS % (AUTO) 0.3 % (0-6); HEMATOCRIT 23.9 % (35.0-45.0); HEMOGLOBIN 8.1 g/dl (12.0-16.0); LYMPHOCYTES # (AUTO) 1.6 X10'3 (1.1-4.8); LYMPHOCYTES % (AUTO) 23.4 % (21-51); MEAN CORPUSCULAR HEMOGLOBIN 30.3 PG (27.0-31.0); MEAN CORPUSCULAR HGB CONC 33.9 g/dL (33.0-36.5); MEAN CORPUSCULAR VOLUME 89.6 FL (78-98); MEAN PLATELET VOLUME 6.8 FL (7.4-10.4); MONOCYTES # (AUTO) 0.5 X10'3 (0-0.9); NEUTROPHILS # (AUTO) 4.8 X10'3 (1.8-7.7); NEUTROPHILS % (AUTO) 69.1 % (42-75); PLATELET COUNT 226 X10'3 (140-440); RED BLOOD COUNT 2.66 X10'6 (4.20-5.60); RED CELL DISTRIBUTION WIDTH 15.5 % (11.5-14.5)
[2018-11-07 06:43] LABS: ALBUMIN 2.4 G/DL (3.4-5.0); ANION GAP 12 (8-16); BLOOD UREA NITROGEN 43 MG/DL (7-18); BUN/CREATININE RATIO 24.2 (6.6-38.0); CALCIUM 8.3 MG/DL (8.5-10.1); CHLORIDE 106 MMOL/L (99-107); CREATININE 1.78 MG/DL (0.40-0.90); GLUCOSE 134 MG/DL (70-104); MAGNESIUM 1.1 MG/DL (1.5-2.4); POTASSIUM 3.9 MMOL/L (3.5-5.1); SODIUM 142 MMOL/L (135-145); TOTAL CARBON DIOXIDE 24.3 MMOL/L (24-32); eGFR 29 ML/MIN
[2018-11-07] MEDS: heparin, porcine 5000 units/ml vial SQ SCH (07:56)
[2018-11-07] MEDS: sennosides 8.6mg tablet PO SCH (07:56)
[2018-11-07 08:00] VITALS: BP 149/76
[2018-11-07] MEDS ORDERED: iron polysaccharide complex 150mg capsule PO SCH (08:00)
[2018-11-07] MEDS ORDERED: aspirin 325mg tablet PO SCH (08:00)
[2018-11-07] MEDS ORDERED: K and/or MAG REPLACEMENT MC SCH (08:00)
[2018-11-07 10:00] VITALS: BP_SYST 127; BP_SYST 134; BP_SYST 149; BP_DIAS 70; BP_DIAS 76; BP_DIAS 77
[2018-11-07] MEDS ORDERED: FLU VACC QUAD 2018(5 YR UP)/PF 60 MCG/0.5 ML SYRINGE IM ONE (10:00)
[2018-11-07] MEDS ORDERED: pneumococcal 23-VAL P-sac vacc 25 mcg/0.5ml vial IMVAC ONE (10:00)
--- NOTE | 2018-11-07 15:40 | NUR ---
DM Consult: Pt hx colostomy r/t perineal wound and T1DM prior admit was intubated r/t stopped taking DM meds. GLU on this admit normal and pt reports taking meds w/ no dietary concerns at this time during RD visit. Pt declined written DM ed since received 1 month ago prior admit but did accept RD contact information again. No further concerns at this time. Addendum: 11/07/18 at [address] Amended: Links added.
== END 2018-11-07 15:05 ==
LOC: ER 10:39 → ED HOLD 16:34 → ORTHO 4S 18:19
PROVIDERS: ADMIT Internal Medicine; ATTEND Internal Medicine
DX: G45.9 Transient cerebral ischemic attack, unspecified (principal); E11.65 Type 2 diabetes mellitus with hyperglycemia; D64.9 Anemia, unspecified; E87.5 Hyperkalemia; L89.159 Pressure ulcer of sacral region, unspecified stage; E11.22 Type 2 diabetes mellitus with diabetic chronic kidney disease; I13.0 Hypertensive heart and chronic kidney disease with heart failure and stage 1 through stage 4 chronic kidney disease, or unspecified chronic kidney disease; I50.9 Heart failure, unspecified; J44.9 Chronic obstructive pulmonary disease, unspecified; N18.4 Chronic kidney disease, stage 4 (severe); Z79.4 Long term (current) use of insulin
CPT/HCPCS: 36415; 70450; 71045; 80048; 80053; 82948; 83735; 85025; 85610; 85730; 87070; 92616; 93005; 93306; 93880; 96360; 96361; 96372; 97161; 97530; 99284; G0378; J1644; J7030; J1815; Q2037

== ENCOUNTER 2021-06-12 23:14 | Inpatient (IN) | payer MEDICARE, OTHER ==
[~2021-06-12] VITALS: Ht 167.6 cm; Wt 80.8 kg
[~2021-06-12 23:14] MED LIST changes: +ACET-2119 PO; -ATOR20TA66 PO; +DOCU283E2 PR; -FLU VACC QUAD 2018(5 YR UP)/PF 60 MCG/0.5 ML SYRINGE IM ONE; -FLUC100T9 PO; +HYDR-4383 PO; +INSU100C10 SQ; -INSU100V11 SQ; +IRON-32 PO; -LACT1CAP26 PO; +LIDOCAINE 4% TOP; +MELA3TAB39 PO; -METR-159 PO; -NO HOME MEDS; +ONDA4TAB12 PO; +POLY17PO10 PO; +PRAV80TA3 PO; +SENN-263 PO; -SODI473S20 TP; +SODI473S26 MC; -VANC1PLA9 IV; -ZOF4I IV; -pneumococcal 23-VAL P-sac vacc 25 mcg/0.5ml vial IMVAC ONE
[2021-06-12] MEDS ORDERED: normal saline 1000ml 1,000 ML IV ONE (23:30)
[2021-06-12 23:58] LABS: PARTIAL THROMBOPLASTIN TIME 22 SECONDS (22-32)
[2021-06-13 00:03] LABS: ALANINE AMINOTRANSFERASE 29 U/L (12-78); ALBUMIN 3.3 G/DL (3.4-5.0); ALBUMIN/GLOBULIN RATIO 0.9 (1.1-1.5); ALKALINE PHOSPHATASE 141 IU/L (46-116); ANION GAP 12 (8-16); ASPARTATE AMINO TRANSFERASE 32 U/L (10-37); BILIRUBIN,TOTAL 0.2 MG/DL (0.1-1.0); BLOOD UREA NITROGEN 47 MG/DL (7-18); BUN/CREATININE RATIO 17.1 (6.6-38.0); CHLORIDE 113 MMOL/L (99-107); CREATININE 2.75 MG/DL (0.40-0.90); GLUCOSE 198 MG/DL (70-104); POTASSIUM 4.3 MMOL/L (3.5-5.1); SODIUM 145 MMOL/L (135-145); TOTAL CARBON DIOXIDE 19.6 MMOL/L (24-32); eGFR 17 ML/MIN
[2021-06-13 00:10] LABS: MAGNESIUM 2.3 MG/DL (1.5-2.4); TROPONIN I < 0.04 NG/ML (0.0-0.05)
[2021-06-13] MEDS ORDERED: midazolam 100mg in NS 100ml 100 ML IV PRN ×2 (00:10→00:19)
--- NOTE | 2021-06-13 00:47 | NUR ---
ASSUMED CARE FROM IGOR GROVER. PT INTUBATED AND PROPPED UP ON LEFT SIDE SLIGHTLY PER SUGGESTION FROM RT TO IMPROVE PT OXYGENATION. PT SPO2 92% CURRENTLY WITH VENT SETTINGS 101 F1O2 AND PEEP OF 10. PT STARTED ON VERSED DRIP FOR SEDATION AND DR. ANTOINE STATES NO NEED FOR ANY OTHER DRIPS AT THIS TIME. PT VISITED PT AND STATES SHE CHOKED ON A PIECE OF STEAK AND HE HEARD STRIDOR PRIOR TO HER COLLAPSING.
[2021-06-13 00:55] LABS: UA COLLECTION TYPE FOLEY CATH
[2021-06-13 00:56] LABS: CLARITY,URINE CLEAR (Clear); COLOR,URINE YELLOW (Yellow); GLUCOSE, URINE NEGATIVE (Neg); KETONES,URINE NEGATIVE (Neg); NITRITES, URINE NEGATIVE (Neg); OCCULT BLOOD,URINE NEGATIVE (Neg); PROTEIN,URINE 100 mg/dl (Neg)
[2021-06-13 00:57] LABS: LEUKOCYTE ESTERASE ,URINE NEGATIVE (Neg); UROBILINOGEN,URINE 0.2 E.U/dL (0.2-1.0)
[2021-06-13 00:58] LABS: BACTERIA,URINE FEW /HPF (Neg); MUCUS STRANDS FEW /LPF (Neg); RBC,URINE 0-2 /HPF (0-2); SQUAMOUS EPITHELIAL CELL,UR FEW /LPF (FEW); WBC,URINE 0-4 /HPF (0-4)
[2021-06-13 00:58] LABS: BASOPHILS % (AUTO) 0.1 % (0-1); EOSINOPHILS % (AUTO) 0 % (0-6); HEMOGLOBIN 11.2 g/dl (12.0-16.0); LYMPHOCYTES # (AUTO) 1.3 X10'3 (1.1-4.8); MEAN CORPUSCULAR HEMOGLOBIN 30.4 PG (27.0-31.0); MEAN CORPUSCULAR HGB CONC 31.9 g/dL (33.0-36.5); MEAN CORPUSCULAR VOLUME 95.3 FL (78-98); MEAN PLATELET VOLUME 7.4 FL (7.4-10.4); NEUTROPHILS # (AUTO) 9.6 X10'3 (1.8-7.7); NEUTROPHILS % (AUTO) 80.9 % (42-75); PLATELET COUNT 163 X10'3 (140-440); RED BLOOD COUNT 3.68 X10'6 (4.20-5.60); RED CELL DISTRIBUTION WIDTH 14.4 % (11.5-14.5); WHITE BLOOD COUNT 11.9 X10'3 (4.5-11.0)
[2021-06-13] MEDS ORDERED: piperacillin/tazo 3.375gm/50ml 50 ML IV ONE (03:10)
[2021-06-13] MEDS ORDERED: normal saline 1000ML IV soln IVB ONE (03:10)
[2021-06-13 03:37] LABS: ABG BASE EXCESS -6.7 mmol/L (-2.0-2.0); ABG HCO3 20.8 mmol/L (22.0-26.0); ABG OXYGEN SATURATION 98.7 % (94-97); ABG PCO2 (T) 47.8 mmHg (32.0-45.0); ABG PO2 (T) 198.8 mmHg (75.0-100.0); FCOHb 0.3 % (0.0-3.9); FO2Hb 98.4 % (94-97); PEEP 10 cm H2O; RESPIRATORY RATE 20 b/min; TIDAL VOLUME 425 mL; TOTAL HEMOGLOBIN 11.5 G/dl (12.0-16.0)
[2021-06-13] MEDS ORDERED: propofol 1000mg/100ml bottle 100 ML IV SCH ×2 (03:40→09:00)
--- NOTE | 2021-06-13 05:17 | NUR ---
PT SEDATION ADJUSTED PT NEEDS. PT HAS BECOME HYPOXIC A FEW TIMES NEEDING SUCTIONING AND FINDING JUNKS OF FOOD COMING OUT OF THE ET TUBE
--- NOTE | 2021-06-13 06:44 | NUR ---
REPORT RECEIVED, CARE ASSUMED OF SEDATED INTUBATED PT. PT ON 70% FIO2 WITH SATS BETWEEN 89-92%. ETT IS 24CM AT THE LIP. PT RECEVING DIPROVAN AT 20MCG/KG/HR AND VERSED AT 12MG/KG/HR RT AT BEDSIDE PREPAIRING FOR BRONCH WITH DR ROSAS AT BEDSIDE.
--- NOTE | 2021-06-13 07:15 | NUR ---
DR ROSAS AT BEDSIDE FOR BRONCHOSCOPY.
--- NOTE | 2021-06-13 07:34 | NUR ---
DR ROSAS WAS UNABLE TO CLEAR BLOCKAGE WITH BRONCH. PER RT DR SAVAGE WILL BE COMING IN TO RE-BRONCH PT.
--- NOTE | 2021-06-13 07:49 | NUR ---
PT'S CALLED, STATUS UPDATE GIVEN. REQUESTED A CALL BACK WHEN BRONCHOSCOPY PROCEEDURE IS COMPLETED.
--- NOTE | 2021-06-13 08:40 | NUR ---
THROAT BLOCKAGE REMOVED BY DR SAVAGE. PT'S CALLED AND MSG LEFT TO RETURN CALL
[2021-06-13] MEDS ORDERED: magnesium hydroxide 30ml (MOM) UD suspension PO PRN (09:00)
[2021-06-13] MEDS: normal saline 1000ml 1,000 ML IV SCH ×2 (09:00→22:40)
[2021-06-13] MEDS ORDERED: ondansetron/PF 4mg/2ml inj IV PRN (09:00)
[2021-06-13] MEDS ORDERED: potassium Cl 40MEQ/250ML bag 270 ML IV PRN ×2 (09:00)
[2021-06-13] MEDS ORDERED: acetaminophen 325mg tablet PO PRN ×2 (09:00)
[2021-06-13] MEDS ORDERED: FENTANYL-0.9 % NACL/PF 100 ML IV PRN (09:00)
[2021-06-13] MEDS ORDERED: fentaNYL/PF 50MCG/1 ML 2ML syringe IV PRN (09:00)
[2021-06-13] MEDS ORDERED: ipratropium/albuterol 3ml nebule NEB PRN ×2 (09:00→14:45)
[2021-06-13] MEDS ORDERED: potassium Cl 40MEQ/1/2NS 520ml 520 ML IV PRN ×2 (09:00)
[2021-06-13] MEDS ORDERED: LIDOcaine 2% 10ml TOPICAL JELLY (Urojet) TP ONE (09:00)
[2021-06-13] MEDS ORDERED: potassium Cl 20 mEq SR tablet PO PRN ×2 (09:00)
--- NOTE | 2021-06-13 09:36 | NUR ---
DR ROSAS CALLED, NOTIFIED THAT VERSED INFUSION IS EMPTY AND THAT PER RT DR COHN WANTED PT TO BE WEANED OFF SEDATION AND VENTALTOR. RECEIVED A VERBAL ORDER FROM DR ROSAS TO JOSHUA HERNANDEZ, DECREASE FIO2 TO 40 AND TO WEAN OFF DIPROVAN "QUICKLY" Addendum: 06/13/21 at 0943 by HIMANSHU DIPROVAN DECREASED FROM 19.95MCG/KG/HR TO 17.95MCG/KG/HR
--- NOTE | 2021-06-13 10:01 | NUR ---
DIPROVAN DECREASED FROM 17.95MCG/KG/HR TO 15.95 MCG.KG/HR
--- NOTE | 2021-06-13 10:15 | NUR ---
DIPROVAN DECREASED FROM 15.95MCG/KG/HR TO 13.95 MCG.KG/HR
--- NOTE | 2021-06-13 10:30 | NUR ---
DIPROVAN DECREASED FROM 13.95MCG/KG/HR TO 12.95 MCG.KG/HR
--- NOTE | 2021-06-13 10:50 | NUR ---
DIPROVAN DECREASED FROM 12.95MCG/KG/HR TO 10.95 MCG.KG/HR
[2021-06-13] MEDS ORDERED: ipratropium/albuterol 3ml nebule NEB SCH (11:00)
--- NOTE | 2021-06-13 11:15 | NUR ---
DIPROVAN DECREASED FROM 10.95MCG/KG/HR TO 8.95 MCG.KG/HR RT AT BEDSIDE
[2021-06-13] MEDS ORDERED: LISI20TA28 PO (11:18)
[2021-06-13] MEDS ORDERED: AMLO10TA13 PO (11:18)
[2021-06-13] MEDS ORDERED: GABA300C PO (11:18)
[2021-06-13] MEDS ORDERED: FLUO-167 PO (11:18)
[2021-06-13] MEDS ORDERED: INSU100V12 SQ (11:18)
[2021-06-13] MEDS: piperacillin/tazo 3.375gm/50ml 50 ML IV SCH (11:21)
--- NOTE | 2021-06-13 11:28 | NUR ---
DR ROSAS CALLED AND NOTIFIED OF PT STATUS. STATES HE WILL BE DOWN TO EVALUATE PT PRIOR TO EXTABATION
--- NOTE | 2021-06-13 11:46 | NUR ---
DR ROSAS AT BEDSIDE. PER DR ROSAS WHEN PT IS AWAKE ENOUGHT TO PARTICIPATE IN WEANING PERAMITERS TO LET HIM KNOW. RT ALSO NOTIFIED DIPROVAN DECREASED FROM 8.95 MCG/KG/HR TO 5.95 MCG/KG/HR
--- NOTE | 2021-06-13 12:00 | NUR ---
DIPROVAN DECREASED FROM 5.908 MCG/KG/HR TO 2.908 MCG.KG/HR RT AT BEDSIDE, PT SHOWS NO SIGNS OF WAKING UP
--- NOTE | 2021-06-13 12:26 | NUR ---
DIPROVAN HAS BEEN TURNED OFF. RT NOTIFIED
--- NOTE | 2021-06-13 14:25 | NUR ---
DR ROSAS CALLED, PT IS MAINTAINING WEANING PERAMITERS PER RT. DR ROSAS WILL WRITE EXTIBATION ORDERS AND TO HOLD EXTIBATION UNTIL ORDERS ARE RECEIVED RT NOTIFIED
[2021-06-13] MEDS ORDERED: racepinephrine 11.25mg/0.5ml nebule NEB PRN (14:45)
[2021-06-13] MEDS: ipratropium/albuterol 3ml nebule NEB SCH ×2 (15:00→20:42)
--- NOTE | 2021-06-13 15:10 | NUR ---
PT EXTUBATED AND ON NC AT 4L. BBS CLEAR WITH NOT STRIDOR. PT HAS NOTED BLOOD IN HER MOUTH, INJURY TO HER TOUNGE DUE TO PT BITING IT PRIOR TO EXTUBATION.
--- NOTE | 2021-06-13 18:44 | NUR ---
ASSUMED CARE OF PT, PT CURRENTLY SLEEPING WITH 4LPM NC AND NG TUBE IN PLACE. PT NO LONGER INTUBATED AND SPO2 OF 95%. ONLY DRIP ON PT CURRENTY IS NS
[2021-06-13] MEDS: docusate sod 100mg capsule PO SCH (20:00)
[2021-06-13] MEDS: famotidine/PF 10 mg/ml inj IV SCH (20:36)
[2021-06-13] MEDS: heparin, porcine 5000 units/ml vial SQ SCH (20:37)
[2021-06-14] MEDS: piperacillin/tazo 3.375gm/50ml 50 ML IV SCH ×3 (00:10→17:09)
--- NOTE | 2021-06-14 00:14 | NUR ---
PT WOKE AND SPEAKING CLEARLY, A&OX4. PT ABLE TO UNDERSTAND CIRCUMSTANCES AND ANSWERING QUESTIONS APPROPRIATELY. PT DENIES PAIN. NG TUBE REMOVED AND PT REPOSITIONED WITH PILLOW UNDER RIGHT HIP FOR OFFSETTING BOTTOM. PT GARCIA EMPTIED 1800ML OF LIGHT YELLOW CLEAR URINE
--- NOTE | 2021-06-14 01:59 | NUR ---
PT RESTING IN BED APPEARS TO BE SLEEPING. NO OBVIOUS SIGNS OF DISTRESS
[2021-06-14] MEDS: ipratropium/albuterol 3ml nebule NEB SCH ×4 (02:28→20:09)
[2021-06-14 03:04] LABS: BASOPHILS % (AUTO) 0.1 % (0-1); EOSINOPHILS % (AUTO) 0 % (0-6); HEMATOCRIT 32.5 % (35.0-45.0); HEMOGLOBIN 10.6 g/dl (12.0-16.0); LYMPHOCYTES # (AUTO) 1.3 X10'3 (1.1-4.8); LYMPHOCYTES % (AUTO) 11.1 % (21-51); MEAN CORPUSCULAR HEMOGLOBIN 31.1 PG (27.0-31.0); MEAN CORPUSCULAR HGB CONC 32.8 g/dL (33.0-36.5); MEAN CORPUSCULAR VOLUME 94.8 FL (78-98); MEAN PLATELET VOLUME 7.5 FL (7.4-10.4); MONOCYTES # (AUTO) 0.7 X10'3 (0-0.9); MONOCYTES % (AUTO) 6.3 % (2-12); NEUTROPHILS # (AUTO) 9.6 X10'3 (1.8-7.7); NEUTROPHILS % (AUTO) 82.5 % (42-75); PLATELET COUNT 115 X10'3 (140-440); RED BLOOD COUNT 3.42 X10'6 (4.20-5.60); RED CELL DISTRIBUTION WIDTH 14.3 % (11.5-14.5); WHITE BLOOD COUNT 11.6 X10'3 (4.5-11.0)
[2021-06-14 04:25] LABS: ALANINE AMINOTRANSFERASE 35 U/L (12-78); ALBUMIN 2.7 G/DL (3.4-5.0); ALBUMIN/GLOBULIN RATIO 0.8 (1.1-1.5); ALKALINE PHOSPHATASE 119 IU/L (46-116); ANION GAP 14 (8-16); ASPARTATE AMINO TRANSFERASE 59 U/L (10-37); BILIRUBIN,TOTAL 0.4 MG/DL (0.1-1.0); BLOOD UREA NITROGEN 36 MG/DL (7-18); BUN/CREATININE RATIO 16.6 (6.6-38.0); CALCIUM 7.6 MG/DL (8.5-10.1); CHLORIDE 114 MMOL/L (99-107); CREATININE 2.17 MG/DL (0.40-0.90); GLUCOSE 255 MG/DL (70-104); MAGNESIUM 2.1 MG/DL (1.5-2.4); PHOSPHORUS 3.9 MG/DL (2.3-4.5); POTASSIUM 4.5 MMOL/L (3.5-5.1); SODIUM 147 MMOL/L (135-145); TOTAL PROTEIN 6.2 G/DL (6.4-8.2); TRIGLYCERIDES 179 MG/DL (20-135); eGFR 23 ML/MIN
[2021-06-14] MEDS ORDERED: enoxaparin 40mg/0.4ml syringe SUBCUT SCH (08:00)
[2021-06-14] MEDS: docusate sod 100mg capsule PO SCH ×2 (08:41→21:23)
[2021-06-14] MEDS: heparin, porcine 5000 units/ml vial SQ SCH ×3 (08:41→21:22)
[2021-06-14] MEDS: famotidine/PF 10 mg/ml inj IV SCH (08:41)
[2021-06-14] MEDS: normal saline 1000ml 1,000 ML IV SCH (08:42)
--- NOTE | 2021-06-14 09:00 | NUR ---
CHOPPED HH DIET FAX SENT TO DIETARY.
--- NOTE | 2021-06-14 09:10 | NUR ---
DR ROSAS AT BEDSIDE TO SAMANTHA PT.
[2021-06-14] MEDS ORDERED: dextrose ORAL solution 15 GM/59 ML bottle PO PRN ×2 (10:00)
[2021-06-14] MEDS ORDERED: dextrose 50%-water 50ml dispensing syringe IV PRN ×2 (10:00)
[2021-06-14] MEDS ORDERED: glucagon, human recombinant 1mg kit SUBCUT PRN (10:00)
--- NOTE | 2021-06-14 10:25 | NUR ---
pt placed on hospital bed
[2021-06-14] MEDS: insulin Lispro (HumaLOG) vial - multi-dose SQ SCH ×2 (10:43→14:49)
[2021-06-14] MEDS: amLODIPine 5mg tablet PO SCH (10:57)
[2021-06-14] MEDS: FLUoxetine 20mg capsule PO SCH (10:57)
[2021-06-14] MEDS: lisinopril 20mg tablet PO SCH (10:58)
[2021-06-14] MEDS ORDERED: mineral oil/petrolatum ophthal oint EACHEYE SCH (14:00)
--- NOTE | 2021-06-14 15:54 | NUR ---
observed pt spo2 81% while pt sleeping and increased to 92% once awakened. Pt stated was dx with sleep apnea and refused cpap at night. pt placed on 2L n/c while sleeping. pt has no distress.
[2021-06-14] MEDS ORDERED: insulin glargine (Lantus) pen - multi-dose SQ SCH ×2 (21:00)
[2021-06-14] MEDS: gabapentin 300mg capsule PO SCH (21:23)
[2021-06-14] MEDS: lactobacillus rhamnosus 10,000 MMU CELLS/CAPSULE PO SCH (21:23)
[2021-06-15] MEDS: piperacillin/tazo 3.375gm/50ml 50 ML IV SCH ×2 (00:11→10:24)
[2021-06-15 02:08] LABS: BASOPHILS % (AUTO) 0.1 % (0-1); EOSINOPHILS % (AUTO) 0 % (0-6); HEMATOCRIT 29.9 % (35.0-45.0); HEMOGLOBIN 9.8 g/dl (12.0-16.0); LYMPHOCYTES # (AUTO) 1.8 X10'3 (1.1-4.8); LYMPHOCYTES % (AUTO) 20.2 % (21-51); MEAN CORPUSCULAR HEMOGLOBIN 30.8 PG (27.0-31.0); MEAN CORPUSCULAR HGB CONC 32.9 g/dL (33.0-36.5); MEAN CORPUSCULAR VOLUME 93.5 FL (78-98); MONOCYTES # (AUTO) 0.6 X10'3 (0-0.9); MONOCYTES % (AUTO) 6.7 % (2-12); NEUTROPHILS # (AUTO) 6.3 X10'3 (1.8-7.7); PLATELET COUNT 109 X10'3 (140-440); RED CELL DISTRIBUTION WIDTH 14.2 % (11.5-14.5); WHITE BLOOD COUNT 8.7 X10'3 (4.5-11.0)
[2021-06-15] MEDS: ipratropium/albuterol 3ml nebule NEB SCH ×3 (02:33→16:42)
[2021-06-15 02:46] LABS: ALANINE AMINOTRANSFERASE 36 U/L (12-78); ALBUMIN 2.5 G/DL (3.4-5.0); ALBUMIN/GLOBULIN RATIO 0.7 (1.1-1.5); ALKALINE PHOSPHATASE 107 IU/L (46-116); ANION GAP 11 (8-16); ASPARTATE AMINO TRANSFERASE 41 U/L (10-37); BILIRUBIN,TOTAL 0.4 MG/DL (0.1-1.0); BLOOD UREA NITROGEN 31 MG/DL (7-18); BUN/CREATININE RATIO 13.8 (6.6-38.0); CHLORIDE 113 MMOL/L (99-107); CREATININE 2.25 MG/DL (0.40-0.90); GLUCOSE 172 MG/DL (70-104); PHOSPHORUS 2.6 MG/DL (2.3-4.5); POTASSIUM 4.3 MMOL/L (3.5-5.1); SODIUM 146 MMOL/L (135-145); TOTAL CARBON DIOXIDE 22.2 MMOL/L (24-32); TOTAL PROTEIN 6.3 G/DL (6.4-8.2); eGFR 22 ML/MIN
[2021-06-15] MEDS: gabapentin 300mg capsule PO SCH (09:15)
[2021-06-15] MEDS: lisinopril 20mg tablet PO SCH (09:15)
[2021-06-15] MEDS: FLUoxetine 20mg capsule PO SCH (09:15)
[2021-06-15] MEDS: amLODIPine 5mg tablet PO SCH (09:16)
[2021-06-15] MEDS: docusate sod 100mg capsule PO SCH (09:16)
[2021-06-15] MEDS: heparin, porcine 5000 units/ml vial SQ SCH (09:17)
[2021-06-15] MEDS: insulin Lispro (HumaLOG) vial - multi-dose SQ SCH (10:38)
[2021-06-15 11:19] LABS: CLARITY,URINE CLEAR (Clear); COLOR,URINE STRAW (Yellow); GLUCOSE, URINE 100 mg/dl (Neg); KETONES,URINE NEGATIVE (Neg); LEUKOCYTE ESTERASE ,URINE NEGATIVE (Neg); NITRITES, URINE NEGATIVE (Neg); OCCULT BLOOD,URINE MODERATE (Neg); PH,URINE 6.5 (4.8-8.0); PROTEIN,URINE 100 mg/dl (Neg); UROBILINOGEN,URINE 0.2 E.U/dL (0.2-1.0)
[2021-06-15 11:22] LABS: UA COLLECTION TYPE FOLEY CATH
[2021-06-15 11:51] LABS: COARSE GRANULAR CAST 0-3 /LPF (NEGATIVE); MUCUS STRANDS FEW /LPF (Neg); SQUAMOUS EPITHELIAL CELL,UR FEW /LPF (FEW); TRANSITIONAL EPI CELLS,URINE FEW /HPF
[2021-06-15 11:52] LABS: BACTERIA,URINE NONE SEEN /HPF (Neg); WBC,URINE 0-4 /HPF (0-4)
[2021-06-15 11:54] LABS: AMORPHOUS URATES 1+
[2021-06-15 12:00] VITALS: BP 146/67
[2021-06-15] MEDS: lactobacillus rhamnosus 10,000 MMU CELLS/CAPSULE PO SCH (12:45)
[2021-06-15 13:55] LABS: UA EOSINOPHILS NO EOS /HPF
[2021-06-15] MEDS ORDERED: ROBDML PO (15:18)
--- NOTE | 2021-06-15 15:59 | NUR ---
arrived to take pt home, left agin to get clothes. f/c dc.d text to miguel FIGUEROA before dc Addendum: 06/15/21 at 1602 by Renny Valle RN PAGER ID: [phone] MESSAGE: [id number] Stefano Painting- f/c removed right now for discharge. do you want her to void before going home? is at bedside now. Pina [id number]
[2021-06-15] MEDS ORDERED: LEVO500T89 PO (16:24)
--- NOTE | 2021-06-15 16:45 | NUR ---
Complete disch papers. Pt did not void before disch home at 1710. MD Mason was called about f/c removal at time it was dc'd and she called back promptly to say "pt can be discharged before she voids ( since f/c was recently removed) since is waiting". out via w/c to husbands car. she had a BM prior to dc. a/ox3, RA 95%, able to stand and transfer to w/c as well as dress herself with minimal assistance getting her arms through her dress. iv cath removed and cath intact. site stable. collected all belongings and sent with pt. reviewed disch instructions with too. rx were called to [facility] dr
== END 2021-06-15 17:10 | disposition home or self-care (01) | DRG 163 ==
LOC: ER 23:14 → ED HOLD 06-13 09:05 → PCU 3S 06-15 08:25
PROVIDERS: ADMIT Internal Medicine Critical Care Medicine; ATTEND Internal Medicine Critical Care Medicine
PROC: 5A1935Z Respiratory Ventilation, Less than 24 Consecutive Hours (ICD-10-PCS; 2021-06-13)
PROC: 0BH17EZ Insertion of Endotracheal Airway into Trachea, Via Natural or Artificial Opening (ICD-10-PCS; 2021-06-13)
PROC: 5A12012 Performance of Cardiac Output, Single, Manual (ICD-10-PCS; 2021-06-13)
PROC: 0BCF8ZZ Extirpation of Matter from Right Lower Lung Lobe, Via Natural or Artificial Opening Endoscopic (ICD-10-PCS; principal; 2021-06-15)
DX: T17.520A Food in bronchus causing asphyxiation, initial encounter (principal); J96.01 Acute respiratory failure with hypoxia; I46.9 Cardiac arrest, cause unspecified; N17.9 Acute kidney failure, unspecified; I13.0 Hypertensive heart and chronic kidney disease with heart failure and stage 1 through stage 4 chronic kidney disease, or unspecified chronic kidney disease; N18.4 Chronic kidney disease, stage 4 (severe); E11.22 Type 2 diabetes mellitus with diabetic chronic kidney disease; E11.65 Type 2 diabetes mellitus with hyperglycemia; I25.10 Atherosclerotic heart disease of native coronary artery without angina pectoris; I50.9 Heart failure, unspecified; J44.9 Chronic obstructive pulmonary disease, unspecified; Z20.822 Contact with and (suspected) exposure to COVID-19; X58.XXXA Exposure to other specified factors, initial encounter; F32.9 Major depressive disorder, single episode, unspecified; G89.29 Other chronic pain; Z93.3 Colostomy status; Z88.2 Allergy status to sulfonamides; Z79.899 Other long term (current) drug therapy; Z79.4 Long term (current) use of insulin; Y93.89 Activity, other specified; Y92.098 Other place in other non-institutional residence as the place of occurrence of the external cause; Y99.8 Other external cause status
CPT/HCPCS: 31635; 36415; 36600; 70450; 71045; 71250; 80053; 81001; 82570; 82803; 82948; 83605; 83735; 83880; 84100; 84145; 84156; 84300; 84478; 84484; 85018; 85025; 85610; 85730; 87040; 87207; 87635; 92508; 92616; 93005; 94002; 94003; 94640; 94760; 94799; 96365; 96366; 96367; 97116; 97162; 97530; 99291; 99292; C9803; G0378; J1644; J1815; J2543; J2704; J3490; J7030